=== PATIENT | male | born 1970 | race Two or more races ===

== ENCOUNTER 2018-05-04 01:04 | Inpatient (IN) | payer MEDICAID ==
[~2018-05-04] VITALS: Ht 182.9 cm; Wt 60.3 kg
[2018-05-04] VITALS (72 sets, daily range): BP systolic 70–129; BP diastolic 17–97
--- NOTE | 2018-05-04 01:10 | NUR ---
BIBRA 88 FROM [employer], C/O SOB SINCE YESTERDAY WORSE TODAY, PER RA PT HR 160 BS 46, GAVE GLUCOSE PASTE, FIELD BP 68/40. APPEARS SLIGHTLY ANXIOUS. PT IS AOX4, TACHYCARDIC, HYPOTENSIVE. SOME SOB, BUT RESPIRATIONS EVEN. PAIN IN RIGHT SHOULDER. LARGE OPEN WOUNDS ON BILATERAL LOWER EXTREMITIES. AWAITING MD ORDERS
--- NOTE | 2018-05-04 01:17 | NUR ---
ORDERS CARRIED OUT. IVF INFUSING, ABX STARTED. CONTINUOUS GLUCOSE CHECKS IN PROCESS. LAB ORDERS DRAWN AND SWABS COMPLETED AND SENT TO LAB. PT UNABLE TO PROVIDE URINE AT THIS TIME.
[2018-05-04] MEDS ORDERED: IV NS 0.9% 1,000 ML BAG IV ONE ×2 (01:30→02:30)
--- NOTE | 2018-05-04 01:38 | NUR ---
PT IS ASSIGNED TO ICU RM#: [id number]
[2018-05-04] MEDS ORDERED: DEXTROSE 50%-WATER 50 ML DISP.SYRIN ONE (01:52)
[2018-05-04 01:55] LABS: HEMATOCRIT 34 % (39-51); HEMOGLOBIN 10.9 g/dL (13.5-17.5); MEAN CORPUSCULAR HGB CONC 32 g/dl (31.0-36.0); MEAN CORPUSCULAR VOLUME 70 fL (80-96); RED BLOOD CELL COUNT(AUTO) 4.87 MIL/uL (4.5-6.0)
[2018-05-04] MEDS ORDERED: VANCOMYCIN 1 GM in IV D5W 250 ML IV ONE (02:00)
[2018-05-04] MEDS ORDERED: PIPERACILLIN /TAZOBACTAM 3.375 G in IV D5W 50 ML IV ONE (02:00)
[2018-05-04] MEDS ORDERED: DEXTROSE 50%-WATER 50 ML DISP.SYRIN IVP ONE (02:00)
[2018-05-04 02:03] LABS: CALCIUM, SERUM 7.2 mg/dL (8.5-10.1); CARBON DIOXIDE 20 mmol/L (21-32); CHLORIDE 92 mmol/L (98-107); CREATININE 3.8 mg/dL (0.6-1.3); GLUCOSE 54 mg/dL (74-106); POTASSIUM 3.4 mmol/L (3.5-5.1); SODIUM SERUM 133 mmol/L (136-145); UREA NITROGEN, BLOOD 63 mg/dL (7-18)
[2018-05-04] MEDS ORDERED: PIPERACILLIN /TAZOBACTAM 3.375 G VIAL IV ONE (02:05)
[2018-05-04] MEDS ORDERED: VANCOMYCIN 1 GM VIAL ONE (02:05)
[2018-05-04 02:06] LABS: PLATELET COUNT (AUTO) 10 /CMM (150-450)
--- NOTE | 2018-05-04 02:10 | NUR ---
PT PROVIDED BLANKET FOR COMFORT. CONTINUE TO MONITOR VS
[2018-05-04 02:17] LABS: WHITE BLOOD COUNT (AUTO) 18.8 K/uL (4.3-11.0)
[2018-05-04 02:18] LABS: BILIRUBIN,DIRECT 2.4 mg/dL (0.0-0.2); LYMPHOCYTES % (AUTO) 16.6 % (20.0-44.0); MONOCYTES % (AUTO) 3.2 % (2.0-12.0)
[2018-05-04 02:19] LABS: ALANINE AMINOTRANSFERASE 18 U/L (12-78); ALBUMIN 1.6 g/dL (3.4-5.0); ALKALINE PHOSPHATASE 332 U/L (46-116); ASPARTATE AMINOTRANSFERASE 61 U/L (15-37); B-TYPE NATRIURETIC PEPTIDE 5843 PG/ML (0-125); BASOPHILS % (AUTO) 6.3 % (0.0-2.0); EOSINOPHILS % (AUTO) 1.9 % (0.0-6.0); TOTAL PROTEIN, SERUM 6.1 g/dL (6.4-8.2)
[2018-05-04 02:22] LABS: BAND % (MANUAL) 24 % (0.0-5.0); LYMPHOCYTES % (MANUAL) 2 % (16-48); METAMYELOCYTES % 4 % (0-0); MONOCYTES % (MANUAL) 1 % (0-11.0); NEUTROPHILS % (MANUAL) 67 (42-76); PROMYELOCYTES % 1 % (0-0); REACTIVE LYMPHOCYTES 1 % (0-0)
[2018-05-04 02:25] LABS: BASOPHILS # (AUTO) 1.2 /CMM (0.0-0.2); LYMPHOCYTES # (AUTO) 3.1 /CMM (0.8-4.8); MONOCYTES # (AUTO) 0.6 /CMM (0.1-1.30); NEUTROPHILS # (AUTO) 13.5 /CMM (1.8-8.9)
[2018-05-04] MEDS ORDERED: ACETAMINOPHEN 650 MG/SUPP.RECT RC PRN (03:00)
[2018-05-04] MEDS ORDERED: MORPHINE SULFATE INJ 2 MG/ML DISP.SYRIN IV PRN (03:00)
[2018-05-04] MEDS ORDERED: DEXTROSE 50%-WATER 50 ML DISP.SYRIN IV PRN (03:00)
[2018-05-04] MEDS ORDERED: ONDANSETRON HCL/PF 4 MG/2 ML VIAL IVP PRN (03:00)
[2018-05-04] MEDS ORDERED: NOREPINEPHRINE 8 MG in IV D5W 500 ML IV PRN ×2 (03:00→05:30)
[2018-05-04] MEDS ORDERED: *INSULIN REGULAR(HUMULIN R)HUM 100 UNIT/ML VIAL SQ PRN (03:00)
[2018-05-04] MEDS ORDERED: ACETAMINOPHEN 325 MG TABLET PO PRN (03:00)
[2018-05-04] MEDS ORDERED: CIPROFLOXACIN IV RTU 400 MG in PREMIX 1 EA IV STA (03:04)
--- NOTE | 2018-05-04 03:26 | NUR ---
REPORT GIVEN TO ANNE QUEEN
[2018-05-04] MEDS ORDERED: CIPROFLOXACIN IV RTU 200 ML IV ONE (03:31)
--- NOTE | 2018-05-04 04:20 | NUR ---
ICU/RN-ADMITTED THIS 48 Y/O MALE FROM ER VIA GURNEY ACCOMPANIED BY ER STAFF PER ACLS PROTOCOL. NURSING FOCUS: INFECTION R/T DIAGNOSIS OF SEPSIS. ROUTINE ICU ADMISSION CARE INITIATED. PT. IS AWAKE, ALERT, EXPRESSIVE OF NEEDS. BREATHING SPONTANEOUSLY TO ROOM AIR W/ O2 SUPPORT OF 2 L/NC. SATS.-98%, BP-79/48. WILL CONTINUE TO MONITOR PER PROTOCOL. WILL START PT. ON LEVOPHED NEEDED TO KEEP MAP>60. PT. NOTED TO HAVE HUGE HARISH LE WOUNDS,WILL DO INITIAL TREATMENT PER PROTOCOL AND WILL CONSULT ENVIRONMENTAL COMMUNICATIONS SPECIALIST PER PROTOCOL. REFER TO WOUND PHOTO AND SKIN PROBLEM ASSESSMENT FOR DETAILS. TEMPT. 97/F. WILL KEEP PT. WARM AND COMFORTABLE. DENIES PAIN AT THIS TIME.
--- NOTE | 2018-05-04 04:20 | NUR ---
PT TRANSFERRED TO ICU
[2018-05-04] MEDS: IV NS 0.9% 1,000 ML IV SCH ×3 (04:47→16:03)
[2018-05-04] MEDS ORDERED: NOREPINEPHRINE 4 MG/4 ML AMPUL IV ONE (05:08)
[2018-05-04 05:22] LABS: BASOPHILS # (AUTO) 0.6 /CMM (0.0-0.2); EOSINOPHILS % (AUTO) 5.4 % (0.0-6.0); HEMATOCRIT 29 % (39-51); HEMOGLOBIN 9.4 g/dL (13.5-17.5); LYMPHOCYTES # (AUTO) 3.1 /CMM (0.8-4.8); LYMPHOCYTES % (AUTO) 25.7 % (20.0-44.0); MEAN CORPUSCULAR HGB CONC 32 g/dl (31.0-36.0); MEAN CORPUSCULAR VOLUME 70 fL (80-96); MONOCYTES # (AUTO) 0.6 /CMM (0.1-1.30); MONOCYTES % (AUTO) 4.9 % (2.0-12.0); NEUTROPHILS # (AUTO) 7.2 /CMM (1.8-8.9); NEUTROPHILS % (AUTO) 58.8 % (43.0-81.0); RED BLOOD CELL COUNT(AUTO) 4.19 MIL/uL (4.5-6.0); WHITE BLOOD COUNT (AUTO) 12.2 K/uL (4.3-11.0)
[2018-05-04 05:25] LABS: ALANINE AMINOTRANSFERASE 13 U/L (12-78); ALKALINE PHOSPHATASE 213 U/L (46-116); ASPARTATE AMINOTRANSFERASE 48 U/L (15-37); BILIRUBIN,TOTAL 2.9 mg/dL (0.2-1.0); CALCIUM, SERUM 6.2 mg/dL (8.5-10.1); CARBON DIOXIDE 22 mmol/L (21-32); CHLORIDE 98 mmol/L (98-107); CREATININE 3.3 mg/dL (0.6-1.3); GLUCOSE 116 mg/dL (74-106); PHOSPHORUS 4.3 mg/dL (2.5-4.9); POTASSIUM 3.4 mmol/L (3.5-5.1); SODIUM SERUM 134 mmol/L (136-145); TOTAL PROTEIN, SERUM 4.7 g/dL (6.4-8.2); UREA NITROGEN, BLOOD 59 mg/dL (7-18)
[2018-05-04 05:29] LABS: BASOPHILS % (AUTO) 5.2 % (0.0-2.0); PLATELET COUNT (AUTO) 14 /CMM (150-450)
[2018-05-04 05:31] LABS: ALBUMIN 1.3 g/dL (3.4-5.0)
[2018-05-04 05:33] LABS: CHOLESTEROL 52 mg/dL (<200); HDL CHOLESTEROL < 10 mg/dL (40-60); LDL 10 mg/dL (0-99); THYROID STIMULATING HORMONE 0.796 uIU/mL (0.358-3.74); TRIGLYCERIDES 186 mg/dL (30-150)
--- NOTE | 2018-05-04 05:52 | NUR ---
ICU/RN-RESULT OF ALBUMIN 1.3 AND LACTIC ACID-8.0 IN RELAYED TO ACNP GRECIA W/ PHONE ORDER TO GIVE IL NS IV BOLUS NOW.
[2018-05-04] MEDS ORDERED: PIPERACILLIN /TAZOBACTAM 3.375 G in IV D5W 50 ML IV SCH (06:00)
[2018-05-04] MEDS ORDERED: IV NS 0.9% 1,000 ML IV ONE (06:00)
--- NOTE | 2018-05-04 06:21 | NUR ---
ICU/RN- PT. IS FOR PLATELET TRANSFUSION 1 UNIT, CONSENT SIGNED BY PT. FOR PICC LINE INSERTION W/ CONSENT SIGNED BY PT. AWAITING FOR THE PICC LINE RN.
--- NOTE | 2018-05-04 06:27 | NUR ---
ICU/RN- PT. IS FOR FC INSERTION AT THIS TIME, WILL ASK PT. AGAIN AT A LATER TIME, PT. REFUSING AT THE MOMENT.
[2018-05-04] MEDS ORDERED: MORPHINE SULFATE INJ 4 MG/ML DISP.SYRIN IV PRN (06:31)
[2018-05-04] MEDS ORDERED: FEE PK DOSING 1 MIN EA MC ONE (07:16)
[2018-05-04] MEDS: BLOOD SUGAR DIAGNOSTIC 1 EACH STRIP IN SCH ×4 (07:47→22:07)
[2018-05-04] MEDS: PANTOPRAZOLE 40 MG VIAL IV SCH (09:54)
[2018-05-04] MEDS: NICOTINE PATCH (14MG) 14 MG PATCH.TD24 TD SCH (09:54)
--- NOTE | 2018-05-04 10:17 | NUR ---
NM: LUNG V/Q WAS COMPLETED. TECH:RB.
[2018-05-04 11:45] LABS: BASOPHILS # (AUTO) 0.1 /CMM (0.0-0.2); BASOPHILS % (AUTO) 0.3 % (0.0-2.0); EOSINOPHILS % (AUTO) 3.2 % (0.0-6.0); HEMATOCRIT 31 % (39-51); LYMPHOCYTES # (AUTO) 9.2 /CMM (0.8-4.8); LYMPHOCYTES % (AUTO) 32.2 % (20.0-44.0); MEAN CORPUSCULAR HGB CONC 32 g/dl (31.0-36.0); MEAN CORPUSCULAR VOLUME 70 fL (80-96); MONOCYTES % (AUTO) 3.5 % (2.0-12.0); NEUTROPHILS # (AUTO) 17.3 /CMM (1.8-8.9); NEUTROPHILS % (AUTO) 60.8 % (43.0-81.0); RED BLOOD CELL COUNT(AUTO) 4.48 MIL/uL (4.5-6.0); WHITE BLOOD COUNT (AUTO) 28.4 K/uL (4.3-11.0)
[2018-05-04 11:48] LABS: PLATELET COUNT (AUTO) 12 /CMM (150-450)
[2018-05-04 11:58] LABS: BAND % (MANUAL) 19 % (0.0-5.0); EOSINOPHILS % (MANUAL) 3 % (0-4); LYMPHOCYTES % (MANUAL) 3 % (16-48); MONOCYTES % (MANUAL) 4 % (0-11.0); NEUTROPHILS % (MANUAL) 71 (42-76)
--- NOTE | 2018-05-04 12:00 | NUR ---
pt is resting in the bed, alert, follows commands, ST 165- 180 MD called, on levo at 8mcg,on 2L 02 sat well, lungs partially congested, BL leg edema and wounds, tolerates diet, eats 25% only, no urine output yet, one BM, VQ scan done, v/s stable, no pain, pt turns and repositions by himself.
[2018-05-04] MEDS: PIPERACILLIN /TAZOBACTAM 3.375 G in IV D5W 50 ML IV SCH ×2 (12:09→17:13)
[2018-05-04] MEDS: NOREPINEPHRINE 8 MG in IV D5W 500 ML IV PRN ×2 (12:35→22:07)
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
[2018-05-04] MEDS ORDERED: LORAZEPAM INJ 2 MG/ML VIAL IV PRN (13:00)
--- NOTE | 2018-05-04 15:30 | NUR ---
pt is in Afib with MD LANIE notified
[2018-05-04] MEDS ORDERED: LEVOFLOXACIN 500 MG /D5W 100ML 500 MG in PREMIX 1 EA IV SCH (16:00)
[2018-05-04] MEDS ORDERED: LEVOFLOXACIN 500 MG /D5W 100ML 500 MG in PREMIX 1 EA IV ONE (16:00)
--- NOTE | 2018-05-04 16:15 | NUR ---
pt is resting in the bed, lethargic s/p Ativan ivp, afib with RVR MD notified, orders received, on levo at 13mcg, 2 units platelets transfused, v/s stable, no pain, pt turns and repositions by himself.
[2018-05-04 17:27] LABS: BASOPHILS # (AUTO) 0.1 /CMM (0.0-0.2); BASOPHILS % (AUTO) 0.4 % (0.0-2.0); EOSINOPHILS % (AUTO) 5.2 % (0.0-6.0); HEMATOCRIT 28 % (39-51); HEMOGLOBIN 9.1 g/dL (13.5-17.5); LYMPHOCYTES # (AUTO) 12.2 /CMM (0.8-4.8); LYMPHOCYTES % (AUTO) 35.6 % (20.0-44.0); MEAN CORPUSCULAR HGB CONC 33 g/dl (31.0-36.0); MEAN CORPUSCULAR VOLUME 70 fL (80-96); MONOCYTES % (AUTO) 5.8 % (2.0-12.0); NEUTROPHILS # (AUTO) 18.2 /CMM (1.8-8.9); RED BLOOD CELL COUNT(AUTO) 3.99 MIL/uL (4.5-6.0)
[2018-05-04 17:51] LABS: PLATELET COUNT (AUTO) 24 /CMM (150-450); WHITE BLOOD COUNT (AUTO) 34.2 K/uL (4.3-11.0)
[2018-05-04] MEDS ORDERED: AMIODARONE 150 MG in IV D5W 100 ML IV ONE (18:00)
[2018-05-04] MEDS ORDERED: AMIODARONE 900 MG in IV D5W 482 ML IV PRN (18:00)
[2018-05-04 18:29] LABS: BAND % (MANUAL) 10 % (0.0-5.0); EOSINOPHILS % (MANUAL) 2 % (0-4); LYMPHOCYTES % (MANUAL) 9 % (16-48); MONOCYTES % (MANUAL) 6 % (0-11.0); MYELOCYTES % 1 % (0-0); NEUTROPHILS % (MANUAL) 72 (42-76)
[2018-05-05] VITALS (91 sets, daily range): BP systolic 84–156; BP diastolic 46–98
[2018-05-05] MEDS: PIPERACILLIN /TAZOBACTAM 3.375 G in IV D5W 50 ML IV SCH ×5 (00:55→23:01)
--- NOTE | 2018-05-05 01:00 | NUR ---
DECREASED AMIODARONE TO 0.5MG/MIN PER PROTOCOL FOR NEXT 18 HRS.
[2018-05-05] MEDS: IV NS 0.9% 1,000 ML IV SCH ×5 (01:49→21:15)
[2018-05-05] MEDS: VANCOMYCIN 0.75 GM in IV D5W 250 ML IV SCH (03:27)
[2018-05-05 04:37] LABS: EOSINOPHILS % (AUTO) 0.9 % (0.0-6.0); HEMATOCRIT 27 % (39-51); HEMOGLOBIN 8.5 g/dL (13.5-17.5); LYMPHOCYTES # (AUTO) 2.9 /CMM (0.8-4.8); LYMPHOCYTES % (AUTO) 15.4 % (20.0-44.0); MEAN CORPUSCULAR HGB CONC 32 g/dl (31.0-36.0); MEAN CORPUSCULAR VOLUME 69 fL (80-96); MONOCYTES # (AUTO) 1.3 /CMM (0.1-1.30); NEUTROPHILS # (AUTO) 14.6 /CMM (1.8-8.9); NEUTROPHILS % (AUTO) 76.7 % (43.0-81.0); RED BLOOD CELL COUNT(AUTO) 3.82 MIL/uL (4.5-6.0); WHITE BLOOD COUNT (AUTO) 19.1 K/uL (4.3-11.0)
[2018-05-05 04:43] LABS: PLATELET COUNT (AUTO) 11 /CMM (150-450)
[2018-05-05] MEDS ORDERED: CIPROFLOXACIN IV RTU 400 MG in PREMIX 1 EA IV SCH (05:00)
[2018-05-05 05:10] LABS: BAND % (MANUAL) 11 % (0.0-5.0); LYMPHOCYTES % (MANUAL) 12 % (16-48); NEUTROPHILS % (MANUAL) 73 (42-76)
[2018-05-05 05:11] LABS: MONOCYTES % (MANUAL) 4 % (0-11.0)
[2018-05-05 05:12] LABS: ALANINE AMINOTRANSFERASE 20 U/L (12-78); ALKALINE PHOSPHATASE 152 U/L (46-116); ASPARTATE AMINOTRANSFERASE 58 U/L (15-37); CALCIUM, SERUM 6.9 mg/dL (8.5-10.1); CARBON DIOXIDE 21 mmol/L (21-32); CHLORIDE 100 mmol/L (98-107); CREATININE 3.3 mg/dL (0.6-1.3); GLUCOSE 120 mg/dL (74-106); MAGNESIUM 2.4 mg/dL (1.8-2.4); PHOSPHORUS 3.7 mg/dL (2.5-4.9); POTASSIUM 3.6 mmol/L (3.5-5.1); SODIUM SERUM 135 mmol/L (136-145); TOTAL PROTEIN, SERUM 4.6 g/dL (6.4-8.2); UREA NITROGEN, BLOOD 73 mg/dL (7-18)
[2018-05-05 05:14] LABS: CREATINE KINASE, TOTAL 319 U/L (39-308)
[2018-05-05 05:27] LABS: ALBUMIN 1.3 g/dL (3.4-5.0)
--- NOTE | 2018-05-05 06:30 | NUR ---
NOTIFIED GRECIA YOUNG CRITICAL VALUE OF PLATELETS 11. GIVEN ORDERS FOR 1 UNIT OF PLATELETS AND CBC AN HOUR AFTER. READBACK ORDERS PERFORMED AND PLACED IN COMPUTER.
--- NOTE | 2018-05-05 07:25 | NUR ---
PT REMAINS IN NO ACUTE DISTRESS IN BED. PT DID NOT HAVE ANY SIGNIFICANT CHANGE IN CONDITION DURING SHIFT. ALL NEEDS MET, ALL ORDERS CARRIED OUT. WILL ENDORSE CARE TO AM RN FOR CONTINUITY OF CARE.
[2018-05-05] MEDS: BLOOD SUGAR DIAGNOSTIC 1 EACH STRIP IN SCH ×4 (08:03→21:45)
[2018-05-05] MEDS: NICOTINE PATCH (14MG) 14 MG PATCH.TD24 TD SCH (08:06)
[2018-05-05] MEDS: PANTOPRAZOLE 40 MG VIAL IV SCH (08:06)
[2018-05-05] MEDS: NOREPINEPHRINE 8 MG in IV D5W 500 ML IV PRN (08:06)
[2018-05-05] MEDS: DAKINS HALF STRENGTH (0.25%) 480 ML BOTTLE TOP SCH (08:07)
--- NOTE | 2018-05-05 08:19 | NUR ---
WOUND CARE CONSULT WOUND CARE RECEIVED CONSULT FOR BILATERAL LOWER EXTREMITY WOUNDS. WOUND CARE WILL DEFER CONSULT AND ALL TREATMENT PLANS TO DPM DR WOLFF WHO IS CURRENTLY FOLLOWING THIS PATIENT. PATIENT WITH LATRICIA AT 17, ALL PRESSURE ULCER PREVENTION MEASURES ARE CURRENTLY IN PLACE. WILL SEE PRN.
--- NOTE | 2018-05-05 11:17 | NUR ---
RN NOTE 0720: Received patient sleepy. A/Ox3. On 2LPM of O2 via NC, no respiratory distress noted. Noted with jerking movements at times. With GERRI PICC intact, on Levo @ 8mcg, will titrate as ordered. Able to use urinals, per previous nurse, he had 850mL urine. Noted with bleeding on the mouth, patient trying to gurgle water. Noted platelet 11, awaiting platelet 1 unit for transfusion. With BLE wound dressings CDI. S/E by Dr. Rodriguez, with order to DC Amio drip and continue Levo and NS 250. No S/S hypo/hyperglycemia noted at this time. 0900: S/E by Dr. Kay, no new order at this time. 1015: S/E by Dr. Sommer, no intervention for now 2/2 on pressors. 1115: Platelet transfusion ongoing, tolerated at this time. Will continue to monitor.
--- NOTE | 2018-05-05 13:00 | NUR ---
RN NOTE Still noted with Afib 140's. Made Dr. Rodriguez aware, with order to give Dig x 3 doses.
[2018-05-05] MEDS: DIGOXIN INJ 0.5 MG/2 ML AMPUL IV SCH ×3 (13:11→23:01)
[2018-05-05 13:52] LABS: BASOPHILS # (AUTO) 0.1 /CMM (0.0-0.2); BASOPHILS % (AUTO) 0.4 % (0.0-2.0); EOSINOPHILS % (AUTO) 0.2 % (0.0-6.0); HEMATOCRIT 24 % (39-51); HEMOGLOBIN 7.7 g/dL (13.5-17.5); LYMPHOCYTES # (AUTO) 6.8 /CMM (0.8-4.8); LYMPHOCYTES % (AUTO) 50.2 % (20.0-44.0); MEAN CORPUSCULAR HGB CONC 33 g/dl (31.0-36.0); MEAN CORPUSCULAR VOLUME 69 fL (80-96); MONOCYTES # (AUTO) 0.5 /CMM (0.1-1.30); MONOCYTES % (AUTO) 3.8 % (2.0-12.0); NEUTROPHILS # (AUTO) 6.1 /CMM (1.8-8.9); NEUTROPHILS % (AUTO) 45.4 % (43.0-81.0); RED BLOOD CELL COUNT(AUTO) 3.43 MIL/uL (4.5-6.0); WHITE BLOOD COUNT (AUTO) 13.5 K/uL (4.3-11.0)
[2018-05-05 14:05] LABS: PLATELET COUNT (AUTO) 18 /CMM (150-450)
[2018-05-05 14:15] LABS: APPEARANCE,URINE SL CLOUDY (CLEAR); BILIRUBIN,URINE 1+ (NEGATIVE); BLOOD, URINE 2+ Ery/uL (NEGATIVE); COLOR,URINE YELLOW (YELLOW); KETONES,URINE NEGATIVE (NEGATIVE); LEUKOCYTE ESTERASE ,URINE 1+ (NEGATIVE); NITRITE, URINE NEGATIVE (NEGATIVE); PH,URINE 5.5 (5.0-8.0); PROTEIN,URINE TRACE mg/dl (NEGATIVE); UGLUCOSE NEGATIVE (NEGATIVE)
--- NOTE | 2018-05-05 14:17 | NUR ---
RN NOTE Repeat Plt is 18, made MD aware, no new order at this time.
[2018-05-05 14:27] LABS: CREATININE, URINE 39.3 MG/DL (30.0-125.0); URINE TOTAL PROTEIN 83.8 mg/dL (0-11.9)
[2018-05-05 14:28] LABS: BACTERIA,URINE Many /HPF (None Seen); SQUAMOUS EPITHELIAL CELL,UR Rare /HPF (None Seen)
[2018-05-05 14:29] LABS: URINE AMORPHOUS URATE Moderate /HPF (None Seen)
[2018-05-05 14:36] LABS: BAND % (MANUAL) 1 % (0.0-5.0); LYMPHOCYTES % (MANUAL) 14 % (16-48); NEUTROPHILS % (MANUAL) 78 (42-76)
[2018-05-05 14:37] LABS: MONOCYTES % (MANUAL) 7 % (0-11.0)
[2018-05-05 14:51] LABS: EOSINOPHIL,URINE None Seen
[2018-05-05] MEDS: LEVOFLOXACIN 250 MG /D5W 50 ML 250 MG in PREMIX 1 EA IV SCH (16:02)
[2018-05-05] MEDS: LACTOBACILLUS RHAMNOSUS GG 1 EACH CAP.SPRINK PO SCH (16:02)
--- NOTE | 2018-05-05 19:32 | NUR ---
CARDROOM HAND NOTES RECEIVED PT ON BED. A/O X 3 , SLEEPY. ON NASAL CANNULA 2LPM SATURATING 95%, NO RESPIRATORY DISTRESS NOTED. PT ON TELE MONITOR AFIB UNCONTROLLED HR OF 133. IV ACCESS GERRI PICC LINE PATENT AND INTACT WITH NS RUNNING @ 250CC/HR RUNNING WELL. HEAD OF BED ELEVATED. SIDE RAILS UP. CALL LIGHT WITHIN REACH, BED ALARM ON. WILL CONTINUE TO MONITOR PT CLOSELY.
[2018-05-05] MEDS: HYDROMORPHONE 1 MG/1 ML DISP.SYRIN IV PRN (20:23)
--- NOTE | 2018-05-05 22:32 | NUR ---
FISH FLIPPER NOTES PT AGITATED AND ANXIOUS. PT WANTS ATIVAN TO CALM HIM DOWN. BLOOD PRESSURE STABLE. PT EASILY AROUSABLE.
--- NOTE | 2018-05-05 22:39 | NUR ---
MILLING/POLISHING OPERATOR NOTES ENVIRONMENTAL SERVICES MANAGER ORDERED 1MG ATIVAN ONE TIME DOSE. WILL CONTINUE TO MONITOR PT CLOSELY.
[2018-05-05] MEDS ORDERED: LORAZEPAM INJ 2 MG/ML VIAL IV ONE (23:00)
[2018-05-05] MEDS ORDERED: IV NS 0.9% 1,000 ML IV PRN (23:30)
--- NOTE | 2018-05-05 23:41 | NUR ---
HOT STICK MAN NOTES CALLED YOUTH LIAISON OFFICER FOR HEART RATE OF AFIB 145-160. WAITING FOR ORDERS. WILL CONTINUE TO MONITOR PT CLOSELY.
[2018-05-06] VITALS (54 sets, daily range): BP systolic 100–176; BP diastolic 44–147
[2018-05-06] MEDS ORDERED: IV NS 0.9% 1,000 ML IV PRN
[2018-05-06] MEDS ORDERED: DILTIAZEM HCL 50 MG IV IV ONE
[2018-05-06] MEDS ORDERED: IV NS 0.9% 1,000 ML IV ONE (00:30)
--- NOTE | 2018-05-06 00:33 | NUR ---
BOX SPRING UPHOLSTERER NOTES REHABILITATION TECH ORDERED CARDIZEM 5MG IV PUSH X1 AND 1L NS BOLUS. WILL CONTINUE TO MONITOR PT CLOSELY.
[2018-05-06] MEDS: LORAZEPAM INJ 2 MG/ML VIAL IV PRN ×7 (00:56→22:31)
--- NOTE | 2018-05-06 01:07 | NUR ---
SLOT FLOORMAN NOTES CALLED SAND SYSTEM OPERATOR FOR ORDERS REGARDING RESPI RATE OF 30-40BPM. HR OF 160. PER SAND SYSTEM OPERATOR PT IS HAVING WITHDRAWAL. ORDERED ATIVAN 2MG. WILL CONTINUE TO MONITOR PT CLOSELY.
[2018-05-06] MEDS: IV NS 0.9% 1,000 ML IV SCH (01:20)
[2018-05-06] MEDS: VANCOMYCIN 0.75 GM in IV D5W 250 ML IV SCH (01:58)
--- NOTE | 2018-05-06 02:56 | NUR ---
MIDDLE SCHOOL ENGLISH TEACHER NOTES PER WEED CONTROLLER ROUND THE CLOCK ATIVAN 2MG FOR NOW. FOR WITHDRAWAL SYMPTOMS
--- NOTE | 2018-05-06 04:12 | NUR ---
FLOOR INSPECTOR NOTES PAGED POSTDOCTORAL SCHOLAR FOR CXR RESULTS. ORDERED TO DECREASE IVF NS TO 100CC/HR. AND REPEAT LACTIC ACID IN AM LABS. WILL CONTINUE TO MONITOR PT CLOSELY.
[2018-05-06] MEDS: IV NS 0.9% 1,000 ML IV PRN ×2 (04:40→15:08)
[2018-05-06 05:13] LABS: BASOPHILS # (AUTO) 0.1 /CMM (0.0-0.2); BASOPHILS % (AUTO) 0.6 % (0.0-2.0); EOSINOPHILS % (AUTO) 0.3 % (0.0-6.0); HEMATOCRIT 25 % (39-51); HEMOGLOBIN 8.1 g/dL (13.5-17.5); LYMPHOCYTES # (AUTO) 3.2 /CMM (0.8-4.8); LYMPHOCYTES % (AUTO) 17.9 % (20.0-44.0); MEAN CORPUSCULAR HGB CONC 32 g/dl (31.0-36.0); MEAN CORPUSCULAR VOLUME 69 fL (80-96); MONOCYTES # (AUTO) 2.5 /CMM (0.1-1.30); MONOCYTES % (AUTO) 14.3 % (2.0-12.0); NEUTROPHILS # (AUTO) 11.9 /CMM (1.8-8.9); NEUTROPHILS % (AUTO) 66.9 % (43.0-81.0); RED BLOOD CELL COUNT(AUTO) 3.61 MIL/uL (4.5-6.0); WHITE BLOOD COUNT (AUTO) 17.8 K/uL (4.3-11.0)
[2018-05-06 05:29] LABS: CALCIUM, SERUM 6.9 mg/dL (8.5-10.1); CREATININE 2.3 mg/dL (0.6-1.3); MAGNESIUM 2.4 mg/dL (1.8-2.4); PHOSPHORUS 4.2 mg/dL (2.5-4.9); POTASSIUM 3.5 mmol/L (3.5-5.1)
[2018-05-06 05:32] LABS: PLATELET COUNT (AUTO) 10 /CMM (150-450)
--- NOTE | 2018-05-06 05:47 | NUR ---
SHEAR HELPER NOTES PLATELET IS 10. PAGED METROLOGY ENGINEER. ORDERED 2 UNITS OF PLATELET. NO ACTIVE BLEEDING NOTED. V/S STABLE. WILL CONTINUE TO MONITOR PT CLOSELY.
[2018-05-06] MEDS: PIPERACILLIN /TAZOBACTAM 3.375 G in IV D5W 50 ML IV SCH ×2 (05:51→12:27)
[2018-05-06 06:23] LABS: BAND % (MANUAL) 1 % (0.0-5.0); EOSINOPHILS % (MANUAL) 1 % (0-4); LYMPHOCYTES % (MANUAL) 4 % (16-48); NEUTROPHILS % (MANUAL) 94 (42-76)
--- NOTE | 2018-05-06 07:10 | NUR ---
TRAFFIC CIRCUIT ENGINEER NOTES PT STABLE THROUGHOUT THE SHIFT. PT CONVERTED TO CONTROLLED AFIB. PT ON NASAL CANNULA 5LPM SATURATING WELL. NO RESPIRATORY DISTRESS. CONDOM CATH INSERTED FOR OUTPUT MONITORING. IV FLUID DECREASE DUE TO INCREASE PULMONARY EDEMA. PUT ORDERS FOR 2 UNITS OF PLATELET FOR PLATELET OF 10. NO ACTIVE BLEEDING NOTED THROUGHOUT THE SHIFT. WILL ENDORSE TO THE AM NURSE FOR CONTINUITY OF CARE.
--- NOTE | 2018-05-06 07:30 | NUR ---
RN NOTES RECEIVED PATIENT ON BED WITH BREATHING NORMAL, EVEN AND UNLABORED. NO SOB NOTED. NO ACUTE DISTRESS NOTED. TELE MONITOR REVEALS SR, HR=98. AFEBRILE. GERRI PICC LINE IS PATENT AND INTACT, RUNNING IVF PER ORDER. KEPT CLEAN, DRY AND COMFORTABLE. ALL NEEDS ATTENDED. SAFETY MEASURE OBSERVED. CALL LIGHT WITH IN REACH. WILL CONT TO MONITOR.
[2018-05-06] MEDS: BLOOD SUGAR DIAGNOSTIC 1 EACH STRIP IN SCH ×4 (08:03→22:40)
[2018-05-06] MEDS: PANTOPRAZOLE 40 MG VIAL IV SCH (08:32)
[2018-05-06] MEDS: DAKINS HALF STRENGTH (0.25%) 480 ML BOTTLE TOP SCH (08:33)
[2018-05-06] MEDS: LACTOBACILLUS RHAMNOSUS GG 1 EACH CAP.SPRINK PO SCH ×2 (08:33→16:11)
[2018-05-06] MEDS: NICOTINE PATCH (14MG) 14 MG PATCH.TD24 TD SCH (08:33)
--- NOTE | 2018-05-06 09:30 | NUR ---
RN NOTES PATIENT ENDORSED TO PASHA RODRÍGUEZ FOR CONTINUITY OF CARE.
--- NOTE | 2018-05-06 09:45 | NUR ---
RN NOTES RECEIVED PT IN BED RESTLESS, PT TO BE GIVEN ATIVAN Q2H FOR WITHDRAWAL SYMPTOMS. PT WITH INCREASED RESPIRATION WITH SPO2 95% . PT RESPONSIVE TO PAINFUL STIMULI CONFUSED. GERRI PICC LINE AND LAC 2G PATENT AND INTACT NO REDNESS OR INFILTRATION NOTED. KEPT CLEAN DRY AND COMFORTABLE CALL LIGHT WITHIN EASY REACH WILL CONTINUE TO MONITOR
[2018-05-06 14:09] LABS: PTH, INTACT 166 pg/mL (15-65)
--- NOTE | 2018-05-06 14:45 | NUR ---
RN NOTES PT WITH EPISODES OF TACHYPNEA WITH LOW 02 SAT OF 78% PT PLACED ON NON REBREATHER MASK ORDERED AND ABG DRAWN RESULTS REPORTED TO DR. CARLOS WITH ORDERS TO CONTINUE TO MONITOR ON NON REBREATHER MASK AND ATTEMPT TO WEAN OFF NO INTUBATION AT THIS TIME, ABG TO BE DRAWN IN AM AND CONTINUE TO MONITOR PER DR. CARLOS ATIVAN Q2H PRN ORDERED FOR WITHDRAWAL SYMPTOMS
[2018-05-06 14:57] LABS: ABG BASE EXCESS -6.9 mmol/L; ABG OXYGEN SATURATION 84.1 % (92.0-98.5); ABG PCO2 25.2 mmHg (35.0-45.0); ABG PH 7.431 (7.350-7.450); ABG PO2 53.2 mmHg (75.0-100.0); AaDO2 289.3 mmHg; COHb 1.6 % (0.5-1.5); O2Hb 81.9 % (94.0-97.0); SITE, ABG Right Radial; VENT MODE, BG S/M @ 8 lpm
[2018-05-06] MEDS: LEVOFLOXACIN 250 MG /D5W 50 ML 250 MG in PREMIX 1 EA IV SCH (16:36)
[2018-05-06] MEDS ORDERED: MEROPENEM 500 MG in IV NS 0.9% 50 ML IV ONE (18:00)
--- NOTE | 2018-05-06 19:15 | NUR ---
ICU/SLAG MOTOR OPERATOR RECEIVED REPORT FROM DAY NURSE, PT'S HEART RATE FELL TO 30'S AND SATURATION TO 70'S. CHANGED OFF LEADS AND ASSESS THE PULSE OX ON FINGER. THEN NOTIFIED CHARGE NURSE WHO THEN PLACED ORDER FOR ABG
--- NOTE | 2018-05-06 19:25 | NUR ---
RN NOTES PT IN BED RESTLESS, PT TO BE GIVEN ATIVAN Q2H FOR WITHDRAWAL SYMPTOMS. PT WITH INCREASED RESPIRATION WITH SPO2 94% . PT RESPONSIVE TO PAINFUL STIMULI CONFUSED. GERRI PICC LINE AND LAC 2G PATENT AND INTACT NO REDNESS OR INFILTRATION NOTED. KEPT CLEAN DRY AND COMFORTABLE CALL LIGHT WITHIN EASY REACH WILL CONTINUE TO MONITOR ENDORSED TO NEXT SHIFT FOR CONTINUITY OF CARE
--- NOTE | 2018-05-06 19:30 | NUR ---
ICU/YOUNG ADULT LIBRARIAN ABG WAS RESULTED, NOTIFIED CHARGE NURSE.
[2018-05-06 19:33] LABS: ABG BASE EXCESS -5.6 mmol/L; ABG OXYGEN SATURATION 89.9 % (92.0-98.5); ABG PCO2 30.5 mmHg (35.0-45.0); ABG PH 7.399 (7.350-7.450); ABG PO2 66.3 mmHg (75.0-100.0); AaDO2 616.2 mmHg; COHb 1.2 % (0.5-1.5); MetHb 0.7 % (0.0-1.5); O2Hb 88.2 % (94.0-97.0); VENT MODE, BG NRB
--- NOTE | 2018-05-06 19:45 | NUR ---
ICU/GED INSTRUCTOR BLOOD SUGAR CHECK WAS DONE WHICH WAS 91, NO COVERAGE FOR THIS. BS IS NOT A CRITICAL VALUES. WILL CONTINUE TO MONITOR THIS PT.
--- NOTE | 2018-05-06 20:00 | NUR ---
ICU/TOP DYEING MACHINE TENDER SENT ABG RESULTS TO JUAN LEE FOR ANY ORDERS POST ABG 20 MINUTES AGO. JUAN LEE WILL CALL BACK NEEDS TO LOOK INTO PT AND PT'S HISTORY. AWAIT ANY ORDERS.
--- NOTE | 2018-05-06 20:06 | NUR ---
PT ON NRB TACHYNPNEIC O2 SAT 93%, STAT ABG DONE AT 1925. NOTIFIED RN WITH THE RESULT.
--- NOTE | 2018-05-06 20:30 | NUR ---
ICU/ARCHITECTURE CONSULTANT CALL BACK FROM JUAN LEE, WAS TO PLACE PT ON BIPAP THEN ABG IN 2 HOURS. CALLED BENI BACK FOR CLARIFICATION OF ORDERS.
--- NOTE | 2018-05-06 20:45 | NUR ---
ICU/STORAGE ARCHITECT JUAN LEE CALLED BACK WITH CLARIFICATION OF ORDERS FOR BIPAP.
--- NOTE | 2018-05-06 20:57 | NUR ---
PT PLACED ON BIPAP PER GRECIA VOCATIONAL COORDINATOR. 18/, 30, 100%. ABG IN 2HRS. RN NOTIFIED. WILL CONTINUE TO MONITOR.
--- NOTE | 2018-05-06 21:10 | NUR ---
ICU/RAILROAD CAR LETTERER PT WAS PLACED ON THE BIPAP WITH 18/5, 100%, RATE OF 30. ABG POST 2 HRS IS 23OO. WILL CONTINUE TO MONITOR THIS PT CLOSELY FOR CRITICAL CHANGES WHICH MAY REQUIRE STAT INTUBATION DUE.
--- NOTE | 2018-05-06 21:10 | NUR ---
ICU/STORE SALES MANAGER PT WAS PLACED IN RESTRAINTS TO PREVENT PT FROM REMOVING THE BIPAP. PT HAD BEEN SEEN REMOVING AND GRABBING FOR BIPAP. OBTAINED AN ORDER FOR RESTRAINS. WILL CONTINUE TO CLOSELY MONITOR THIS PT FOR ANY CRITICAL CHANGES WHICH REQUIRE IMMEDIATE CHANGE IN CARE.
[2018-05-06] MEDS: MEROPENEM 500 MG in IV NS 0.9% 100 ML IV SCH (21:59)
[2018-05-06] MEDS ORDERED: VANCOMYCIN 1 GM in IV D5W 250 ML IV SCH (22:00)
--- NOTE | 2018-05-06 22:20 | NUR ---
ICU/QUALITY ASSURANCE PROJECT MANAGER PT'S BLOOD SUGAR IS 83, THERE IS NO COVERAGE FOR THIS. WILL CONTINUE TO MONITOR THIS PER MD ORDERS. PT WAS TURNED AND REPOSITIONED FOR COMFORT AND CARE.
--- NOTE | 2018-05-06 22:42 | NUR ---
ICU/LEAD PROGRAMMER ANALYST PT APPEARS TO BE RESTLESS AND AGITATED WITH RESPIRATORY RATE OF 50'S, CHARGE NURSE NOTIFIED ABOUT THIS. PT WAS GIVEN ATIVAN 2MG IVP. WILL CONTINUE TO MONITOR THIS PT AND HIS AGGRESSIVE BEHAVIOR.
[2018-05-06 23:10] LABS: ABG BASE EXCESS -5.7 mmol/L; ABG OXYGEN SATURATION 97.8 % (92.0-98.5); ABG PCO2 27.1 mmHg (35.0-45.0); ABG PH 7.435 (7.350-7.450); ABG PO2 140.1 mmHg (75.0-100.0); AaDO2 545.8 mmHg; COHb 1.2 % (0.5-1.5); MetHb 1.2 % (0.0-1.5); O2Hb 95.5 % (94.0-97.0); SITE, ABG Right Radial
--- NOTE | 2018-05-06 23:15 | NUR ---
POST ABG ON BIPAP DONE NOTIFIED RN WITH THE RESULT. FIO2 TITRATED.
--- NOTE | 2018-05-06 23:45 | NUR ---
ICU/PAPER PRODUCTS SUPERVISOR 2 HRS POST BIPAP ABG DONE WITH RESULTS SENT EARLY MORNING BABYSITTER GRECIA, WHO SAID KEEP THIS THE SAME AND THEN DO ABG IN THE AM.
[2018-05-07] VITALS (81 sets, daily range): BP systolic 123–171; BP diastolic 39–101
[2018-05-07] MEDS: IV NS 0.9% 1,000 ML IV PRN (00:19)
[2018-05-07] MEDS: LORAZEPAM INJ 2 MG/ML VIAL IV PRN ×3 (02:53→17:49)
--- NOTE | 2018-05-07 04:05 | NUR ---
ICU/PLATER HELPER AM LABS WITH CHEST XRAY DONE, AWAIT FOR ANY ABNORMAL RESULTS.
[2018-05-07 04:44] LABS: BASOPHILS # (AUTO) 0.1 /CMM (0.0-0.2); BASOPHILS % (AUTO) 0.4 % (0.0-2.0); CALCIUM, SERUM 6.1 mg/dL (8.5-10.1); CREATININE 2.1 mg/dL (0.6-1.3); EOSINOPHILS % (AUTO) 0.1 % (0.0-6.0); HEMATOCRIT 21 % (39-51); LYMPHOCYTES # (AUTO) 5.8 /CMM (0.8-4.8); LYMPHOCYTES % (AUTO) 28.6 % (20.0-44.0); MAGNESIUM 2.6 mg/dL (1.8-2.4); MEAN CORPUSCULAR HGB CONC 33 g/dl (31.0-36.0); MEAN CORPUSCULAR VOLUME 68 fL (80-96); MONOCYTES # (AUTO) 1.6 /CMM (0.1-1.30); NEUTROPHILS # (AUTO) 12.7 /CMM (1.8-8.9); NEUTROPHILS % (AUTO) 62.9 % (43.0-81.0); PHOSPHORUS 5.6 mg/dL (2.5-4.9); RED BLOOD CELL COUNT(AUTO) 3.05 MIL/uL (4.5-6.0); WHITE BLOOD COUNT (AUTO) 20.1 K/uL (4.3-11.0)
[2018-05-07 04:56] LABS: HEMOGLOBIN 6.8 g/dL (13.5-17.5); PLATELET COUNT (AUTO) 24 /CMM (150-450)
[2018-05-07 05:21] LABS: BAND % (MANUAL) 5 % (0.0-5.0); EOSINOPHILS % (MANUAL) 1 % (0-4); LYMPHOCYTES % (MANUAL) 25 % (16-48); MONOCYTES % (MANUAL) 5 % (0-11.0); NEUTROPHILS % (MANUAL) 64 (42-76)
--- NOTE | 2018-05-07 06:20 | NUR ---
ICU/IT SUPPORT CONSULTANT CALLED JUAN FOX ABOUT LOW POTASSIUM AND H&H, ORDERS RECEIVED FOR 1 UNIT PRBC'S, AND 40MEQ OF POTASSIUM. CHARGE NURSE MADE AWARE OF THESE ORDERS AND CARRIED OUT.
[2018-05-07] MEDS: POTASSIUM CL. PREMIX PERIPHER. 50 ML IV SCH ×4 (06:33→09:56)
--- NOTE | 2018-05-07 06:45 | NUR ---
ICU/BANDER PT WEIGHT DONE TWICE WITH BED / [facility] WEIGHT IS STILL 175LBS.
--- NOTE | 2018-05-07 07:30 | NUR ---
RN NOTES RECEIVED PT IN BED RESTLESS, PT TO BE GIVEN ATIVAN Q2H NEEDED FOR WITHDRAWAL SYMPTOMS. PT WITH INCREASED RESPIRATION WITH SPO2 95% ON BIPAP PER ORDERS NO INTUBATION AT THIS TIME . PT RESPONSIVE TO PAINFUL STIMULI CONFUSED. GERRI PICC LINE AND LAC 2G PATENT AND INTACT NO REDNESS OR INFILTRATION NOTED.CONDOM CATHETER IN PLACE AND PT WITH OUTPUT TO BE MONITORED. KEPT CLEAN DRY AND COMFORTABLE CALL LIGHT WITHIN EASY REACH WILL CONTINUE TO MONITOR
[2018-05-07] MEDS: BLOOD SUGAR DIAGNOSTIC 1 EACH STRIP IN SCH ×4 (07:42→21:06)
[2018-05-07 07:45] LABS: CALCIUM, SERUM 6.9 mg/dL (8.5-10.1); CREATININE 1.7 mg/dL (0.6-1.3); POTASSIUM 3.3 mmol/L (3.5-5.1)
[2018-05-07] MEDS: INSULIN REGULAR, HUMAN 100 UNIT/ML 3 ML VIAL SQ PRN ×2 (07:47→17:47)
--- NOTE | 2018-05-07 07:56 | NUR ---
RT PATIENT REC'D ON BIPAP WITH NOTED SETTINGS. PATIENT IS CURRENTLY NON RESPONSIVE TO VERBAL COMMANDS AND TACHYPNEIC. I HAVE ALREADY SUGGESTED TO CHARGE NURSE AND MD THAT PATIENT SHOULD BE INTUBATED FOR AIRWAY PROTECTION. NO CHANGES AT THIS TIME. PRICILLA CARLOS WOULD LIKE TO HOLD OFF ON INTUBATION AT THIS TIME. NASAL PROTECTION DONE WITH MEPILEX. ALARMS CHECKED. AMBU BAG AT HOB Addendum: 05/07/18 at 1154 by CARMEN SANDOVAL RT Amended: Links added.
[2018-05-07] MEDS: LACTOBACILLUS RHAMNOSUS GG 1 EACH CAP.SPRINK PO SCH ×2 (08:35→16:31)
[2018-05-07 08:36] LABS: ABG BASE EXCESS -5.8 mmol/L; ABG OXYGEN SATURATION 93.2 % (92.0-98.5); ABG PCO2 33.6 mmHg (35.0-45.0); ABG PH 7.368 (7.350-7.450); ABG PO2 78.4 mmHg (75.0-100.0); COHb 1.6 % (0.5-1.5); MetHb 0.7 % (0.0-1.5); O2Hb 91.1 % (94.0-97.0); SITE, ABG Right Radial; VENT MODE, BG BIPAP 18/5 R30 100%
[2018-05-07] MEDS: NICOTINE PATCH (14MG) 14 MG PATCH.TD24 TD SCH (08:52)
[2018-05-07] MEDS: MEROPENEM 500 MG in IV NS 0.9% 100 ML IV SCH ×2 (08:52→20:19)
[2018-05-07] MEDS: PANTOPRAZOLE 40 MG VIAL IV SCH (08:52)
[2018-05-07] MEDS: DAKINS HALF STRENGTH (0.25%) 480 ML BOTTLE TOP SCH (08:53)
--- NOTE | 2018-05-07 09:00 | NUR ---
RN NOTES 0815 [address]BC ORDERS WITH DR. GOODMAN, PT TO BE GIVEN 2 UNITS. PT SEEN AND EXAMINED BY DR. GOODMAN AWARE OF PLT LEVEL [address] CARLOS TO CLARIFY NEED FOR INTUBATION 0827 RECEIVED CALL BACK PER DR. CARLOS AWAIT ABG RESULTS 0845 RELAYED ABG RESULTS TO DR. CARLOS PER DR. CARLOS NO INTUBATION AT THIS TIME
[2018-05-07] MEDS ORDERED: IV 1/2NS 1000 ML 1,000 ML IV PRN (13:00)
[2018-05-07 15:07] LABS: HAPTOGLOBIN 137 mg/dL (34-200)
[2018-05-07] MEDS: LEVOFLOXACIN 250 MG /D5W 50 ML 250 MG in PREMIX 1 EA IV SCH (16:31)
--- NOTE | 2018-05-07 19:20 | NUR ---
RN NOTES PT IN BED RESTLESS, PT TO BE GIVEN ATIVAN Q2H NEEDED FOR WITHDRAWAL SYMPTOMS LAST ADMINISTERED 1748. PT WITH INCREASED RESPIRATION WITH SPO2 95-98 % ON BIPAP PER ORDERS NO INTUBATION AT THIS TIME HOSPITALIST AND PROGRAM DIRECTOR/AIR PERSONALITY AWARE, ASSESSED PT AND REVIEWED PLAN OF CARE . PT RESPONSIVE TO PAINFUL STIMULI CONFUSED. GERRI PICC LINE AND LAC 2G PATENT AND INTACT NO REDNESS OR INFILTRATION NOTED.CONDOM CATHETER IN PLACE AND PT WITH OUTPUT TO BE MONITORED. KEPT CLEAN DRY AND COMFORTABLE CALL LIGHT WITHIN EASY REACH, ENDORSED TO NEXT SHIFT FOR CONTINUITY OF CARE
--- NOTE | 2018-05-07 19:45 | NUR ---
ICU/CLINICAL NURSE SPECIALIST RECEIVED REPORT FROM DAY NURSE. SEE FLOWSHEET FOR ASSESSMENT, WOUND ISSUES THAT ARE ADDRESSED HERE WELL. PT WAS TURNED AND REPOSITIONED FOR COMFORT AND CARE.
--- NOTE | 2018-05-07 20:03 | NUR ---
PT REMAINS ON BIPAP ON NOTED SETTINGS. PT IS RESTLESS, TACHYPNEIC. PT DOESN'T FOLLOW COMMANDS. BIPAP ALARMS SET AND AUDIBLE. MEPELIX IN PLACE AROUND THE BRIDGE OF THE NOSE. AMBU BAG AT BEDSIDE. WILL CONTINUE TO MONITOR. Addendum: 05/07/18 at 2005 by RENAY ABDUL RT Amended: Links added.
--- NOTE | 2018-05-07 22:00 | NUR ---
ICU/SUPERVISOR DUMPING PT'S BLOOD SUGAR WAS 105, NO COVERAGE FOR THIS AT THIS TIME.
--- NOTE | 2018-05-07 23:30 | NUR ---
ICU/DERMATOLOGY NURSE PROVIDED CARE TO PT AT THIS TIME, DID TUESDAY WOUND PHOTO DOCUMENTATION, WHICH WAS PLACED IN CHART.
[2018-05-08] VITALS (83 sets, daily range): BP systolic 84–170; BP diastolic 38–95
--- NOTE | 2018-05-08 04:30 | NUR ---
ICU/TOOLROOM CHECKER AM LABS WITH CHEST XRAY DONE, AWAIT FOR ANY ABNORMAL RESULTS.
[2018-05-08 04:40] LABS: BASOPHILS % (AUTO) 0.2 % (0.0-2.0); EOSINOPHILS % (AUTO) 0.1 % (0.0-6.0); HEMATOCRIT 28 % (39-51); HEMOGLOBIN 9.2 g/dL (13.5-17.5); LYMPHOCYTES # (AUTO) 4.5 /CMM (0.8-4.8); LYMPHOCYTES % (AUTO) 24.1 % (20.0-44.0); MEAN CORPUSCULAR HGB CONC 33 g/dl (31.0-36.0); MEAN CORPUSCULAR VOLUME 73 fL (80-96); MONOCYTES # (AUTO) 0.5 /CMM (0.1-1.30); MONOCYTES % (AUTO) 2.7 % (2.0-12.0); NEUTROPHILS # (AUTO) 13.6 /CMM (1.8-8.9); NEUTROPHILS % (AUTO) 72.9 % (43.0-81.0); RED BLOOD CELL COUNT(AUTO) 3.83 MIL/uL (4.5-6.0); WHITE BLOOD COUNT (AUTO) 18.7 K/uL (4.3-11.0)
[2018-05-08 04:47] LABS: PLATELET COUNT (AUTO) 20 /CMM (150-450)
--- NOTE | 2018-05-08 05:00 | NUR ---
ICU/CLEANER INDUSTRIAL PT APPEARS TO BE RESTLESS AND AGITATED POST AM CARE WITH RESPIRATORY RATE OF 50'S, CHARGE NURSE NOTIFIED ABOUT THIS. PT WAS GIVEN ATIVAN 2MG IVP. WILL CONTINUE TO MONITOR THIS PT AND HIS AGGRESSIVE BEHAVIOR.
[2018-05-08 05:02] LABS: CALCIUM, SERUM 7.8 mg/dL (8.5-10.1); CREATININE 1.5 mg/dL (0.6-1.3); MAGNESIUM 2.9 mg/dL (1.8-2.4); PHOSPHORUS 5.2 mg/dL (2.5-4.9); POTASSIUM 3.4 mmol/L (3.5-5.1)
[2018-05-08] MEDS: LORAZEPAM INJ 2 MG/ML VIAL IV PRN ×2 (05:09→08:24)
[2018-05-08 05:29] LABS: LYMPHOCYTES % (MANUAL) 5 % (16-48); MONOCYTES % (MANUAL) 4 % (0-11.0); NEUTROPHILS % (MANUAL) 91 (42-76)
[2018-05-08 07:20] LABS: ABG BASE EXCESS -3.4 mmol/L; ABG OXYGEN SATURATION 92.6 % (92.0-98.5); ABG PCO2 35.5 mmHg (35.0-45.0); ABG PH 7.391 (7.350-7.450); ABG PO2 71.4 mmHg (75.0-100.0); AaDO2 606.1 mmHg; COHb 0.3 % (0.5-1.5); MetHb 0.7 % (0.0-1.5); O2Hb 91.7 % (94.0-97.0); SITE, ABG Right Radial; VENT MODE, BG BIPAP 18/5
[2018-05-08] MEDS: BLOOD SUGAR DIAGNOSTIC 1 EACH STRIP IN SCH ×4 (07:36→22:48)
[2018-05-08] MEDS: DAKINS HALF STRENGTH (0.25%) 480 ML BOTTLE TOP SCH (07:38)
[2018-05-08] MEDS ORDERED: IV D5W 1,000 ML IV SCH (08:00)
--- NOTE | 2018-05-08 08:01 | NUR ---
ICU/VOLLEYBALL COACH CALLED DR PAYAN ABOUT CRITICAL LABS OF PLAT 20 AND NA 157. HE D/C CURRENT IVF AND CHANGED OVER TO D5W @ 80ML/HR. DAY NURSE MADE AWARE OF CHANGES.
[2018-05-08 08:07] LABS: *SPE A/G RATIO 0.6 (0.7-1.7); *SPE ALBUMIN 1.7 g/dL (2.9-4.4); *SPE ALPHA-1-GLOBULIN 0.4 g/dL (0.0-0.4); *SPE ALPHA-2-GLOBULIN 0.6 g/dL (0.4-1.0); *SPE BETA GLOBULIN 0.6 g/dL (0.7-1.3); *SPE GLOBULIN, TOTAL 2.7 g/dL (2.2-3.9); *SPE M-SPIKE Not Observed g/dL (Not Observed); *SPEGAMMA GLOBULIN 1.2 g/dL (0.4-1.8)
[2018-05-08] MEDS: MEROPENEM 500 MG in IV NS 0.9% 100 ML IV SCH (08:08)
[2018-05-08] MEDS: NICOTINE PATCH (14MG) 14 MG PATCH.TD24 TD SCH (08:08)
[2018-05-08] MEDS: PANTOPRAZOLE 40 MG VIAL IV SCH (08:08)
[2018-05-08] MEDS: LACTOBACILLUS RHAMNOSUS GG 1 EACH CAP.SPRINK PO SCH ×2 (08:10→16:37)
--- NOTE | 2018-05-08 08:25 | NUR ---
RN NOTE: PATIENT RECEIVED ON BIPAP RESTLESS, AGITATED, TACHYPNEIC (RR 50-60S). PATIENT SEEN AND ASSESSED BY DR. LAMBERT AT BEDSIDE. SAFETY MEASURES OBSERVED. BILATERAL SOFT WRIST RESTRAINTS ON. ATIVAN IV 2MG GIVEN PRN, WILL CONTINUE TO MONITOR. HEAD TO TOE ASSESSMENT DONE & DOCUMENTED IN FLOW SHEET INTERVENTIONS. CONTINUE TO TURN & REPOSITION Q2H. CONTINUE WITH PLAN OF CARE.
--- NOTE | 2018-05-08 09:45 | NUR ---
RT PATIENT ORALLY INTUBATED BY DR RABAGO WITH A 7.5 ETT SECURED AT 25CM VIA ANCHOR FAST. BILAT B/S HEARD, BILAT CHEST RISE NOTED. POSITIVE CO2 DETECTOR COLOR CHANGE. PATIENT PLACED ON [facility] VENT WITH SETTINGS PROVIDED BY DR LAMBERT. VENT ALARMS CHECKED + AUDIBLE. CUFF PRESSURE CHECKED COMMUNITY HEALTH PROGRAM COORDINATOR. PATIENT SUCTIONED WITH MOD AMT OF [place] BLOOD TINGED SECRETIONS. AMBU BAG AT HOB. Addendum: 05/08/18 at 1010 by CARMEN SANDOVAL RT Amended: Links added.
--- NOTE | 2018-05-08 09:50 | NUR ---
RN NOTE: PATIENT INTUBATED BY DR. RABAGO, 7.5 ETT SECURE AT 25CM. SECURE BY RT. DR. CARLOS & DR. LAMBERT AT BEDSIDE. MEDICATION ADMINISTER PER DR. RABAGO'S ORDERS. VENTILATOR SETTINGS PER DR. LAMBERT, SEE FLOWSHEET. HOB ELEVATED. NOTED BLOODY SECRETIONS FROM MOUTH WITH SUCTION. . DRY BLOOD NOTED IN MOUTH. GENTLE ORAL CARE PROVIDED. AMBU BAG AT BEDSIDE.
[2018-05-08] MEDS: PROPOFOL 100 ML IV PRN ×2 (10:10→23:31)
[2018-05-08] MEDS ORDERED: POTASSIUM CL. PREMIX PERIPHER. 50 ML IV SCH (10:18)
[2018-05-08 12:26] LABS: ABG OXYGEN SATURATION 97.8 % (92.0-98.5); ABG PCO2 69.2 mmHg (35.0-45.0); ABG PH 7.162 (7.350-7.450); ABG PO2 187.8 mmHg (75.0-100.0); COHb 0.1 % (0.5-1.5); MetHb 0.7 % (0.0-1.5); SITE, ABG Right Radial
[2018-05-08] MEDS ORDERED: NOREPINEPHRINE 8 MG in IV D5W 500 ML IV PRN (12:30)
[2018-05-08] MEDS ORDERED: FEE PK DOSING 1 MIN EA MC ONE (12:43)
--- NOTE | 2018-05-08 13:00 | NUR ---
POST ABG RESULTS PER DR LAMBERT RR INCREASED TO 20, VT INCREASED TO 600, FIO2 TITRATED TO 80% Addendum: 05/08/18 at 1301 by CARMEN SANDOVAL RT Amended: Links added.
[2018-05-08] MEDS ORDERED: ETOMIDATE 2 MG/ML VIAL ONE (13:08)
[2018-05-08] MEDS ORDERED: SUCCINYLCHOLINE CHLORIDE 20 MG/ML VIAL ONE (13:08)
[2018-05-08 15:14] LABS: ABG BASE EXCESS -1.4 mmol/L; ABG OXYGEN SATURATION 97.1 % (92.0-98.5); ABG PCO2 40.5 mmHg (35.0-45.0); ABG PH 7.382 (7.350-7.450); ABG PO2 116.4 mmHg (75.0-100.0); AaDO2 266.9 mmHg; COHb 0.1 % (0.5-1.5); MetHb 0.8 % (0.0-1.5); O2Hb 96.2 % (94.0-97.0); SITE, ABG Right Radial; VENT MODE, BG AC 20 600 60% +8
[2018-05-08] MEDS: VANCOMYCIN 1 GM in IV D5W 250 ML IV SCH (15:37)
--- NOTE | 2018-05-08 16:30 | NUR ---
RN NOTE: VENT SETTINGS CHANGED PER DR. LAMBERT BY RT, SEE FLOW-SHEET. ABG RESULTS RELAYED TO DR. LAMBERT. WOUND CARE DONE ORDERED. SAFETY MEASURES OBSERVED. CONTINUE WITH GENTLE ORAL CARE. PLASMA TRANSFUSED ORDERED. ATTEMPT TO RELEASE RESTRAINTS, NOTED PATIENT TRIED TO PULL LINES, CATHETER & VENT TUBINGS. REAPPLIED RESTRAINTS FOR SAFETY. CONTINUE ON DIPRIVAN 5 mcg FOR SEDATION. CONTINUE TO TURN & REPOSITION Q2H.
[2018-05-08] MEDS: LEVOFLOXACIN 250 MG /D5W 50 ML 250 MG in PREMIX 1 EA IV SCH (16:47)
[2018-05-08] MEDS: INSULIN REGULAR, HUMAN 100 UNIT/ML 3 ML VIAL SQ PRN (17:16)
--- NOTE | 2018-05-08 19:48 | NUR ---
CHIEF FINANCIAL OFFICER. INITIAL ASSESSMENT. RECEIVED THE PT REST ON THE BED. ORALLY INTUBATED. SEDATED WITH DIPRIVAN.ETT 7.5CM,LIP 27,AC 20,TV 600,FIO2 100%, PEEP 8. SAT 99%. PIG MACHINE OPERATOR HELPER SHOWING NSR. IV RT UPPER ARM PICC LINE IVF D5W 80ML/H, DIPRIVAN 10MCG/KG/MIN, HOB ELEVATED. NPO. CONDOM CATH INTACT. HARISH LOWER EXTREMITY WOUND. DRESSING INTACT. WILL CONTINUE TO MONITOR VITALS.
--- NOTE | 2018-05-08 19:50 | NUR ---
RECEIVED PT ORALLY INTUBATED ON VENT ON NOTED SETTINGS. 7.5 ETT SECURED AT 25CM AT THE LIP. SX'D FOR MOD AMT OF THICK LAYTON SECRETIONS. VENT ALARMS SET AND AUDIBLE. ETT CUFF SHOE LASTER. AMBU BAG AT BEDSIDE. VENT PLUGGED INTO RED OUTLET. WILL CONTINUE TO MONITOR. Addendum: 05/08/18 at 1951 by RENAY ABDUL RT Amended: Links added.
[2018-05-08] MEDS: MEROPENEM 1 G in IV NS 0.9% 100 ML IV SCH (21:02)
[2018-05-09] VITALS (88 sets, daily range): BP systolic 82–140; BP diastolic 39–71
--- NOTE | 2018-05-09 01:10 | NUR ---
RN NOTES RECEIVED REPORT FROM ANNE STILES. PATIENT IS SEDATED ON DIPROVAN RUNNING AT 30mcgs per hour ON RIGHT ARM PICC LINE (PATENT AND INTACT, FLUSHES EASY). ALSO RUNNING D5W @ 80ML PER HOUR ON RIGHT ARM PICC LINE. PATIENT IS ON LIP 27 UPON RECEIPT. PATIENT IS ON VITAL SIGNS MONITORING. SAFETY MEASURES PROVIDED.
[2018-05-09] MEDS: MEROPENEM 1 G in IV NS 0.9% 100 ML IV SCH ×2 (03:59→12:19)
[2018-05-09 05:09] LABS: BASOPHILS # (AUTO) 0.1 /CMM (0.0-0.2); BASOPHILS % (AUTO) 0.5 % (0.0-2.0); EOSINOPHILS % (AUTO) 0.1 % (0.0-6.0); HEMATOCRIT 25 % (39-51); HEMOGLOBIN 8.2 g/dL (13.5-17.5); LYMPHOCYTES # (AUTO) 4.5 /CMM (0.8-4.8); LYMPHOCYTES % (AUTO) 29.1 % (20.0-44.0); MEAN CORPUSCULAR HGB CONC 33 g/dl (31.0-36.0); MEAN CORPUSCULAR VOLUME 75 fL (80-96); MONOCYTES # (AUTO) 0.3 /CMM (0.1-1.30); MONOCYTES % (AUTO) 2.1 % (2.0-12.0); NEUTROPHILS # (AUTO) 10.4 /CMM (1.8-8.9); NEUTROPHILS % (AUTO) 68.2 % (43.0-81.0); RED BLOOD CELL COUNT(AUTO) 3.35 MIL/uL (4.5-6.0); WHITE BLOOD COUNT (AUTO) 15.3 K/uL (4.3-11.0)
[2018-05-09 05:14] LABS: PLATELET COUNT (AUTO) 23 /CMM (150-450)
[2018-05-09 05:16] LABS: COMPLEMENT C3, SERUM 50 mg/dL (82-167); COMPLEMENT C4, SERUM 7 mg/dL (14-44)
[2018-05-09 05:34] LABS: BAND % (MANUAL) 5 % (0.0-5.0); LYMPHOCYTES % (MANUAL) 2 % (16-48); MONOCYTES % (MANUAL) 1 % (0-11.0); NEUTROPHILS % (MANUAL) 92 (42-76)
[2018-05-09 05:35] LABS: CALCIUM, SERUM 7.5 mg/dL (8.5-10.1); CREATININE 2.1 mg/dL (0.6-1.3); MAGNESIUM 2.8 mg/dL (1.8-2.4); PHOSPHORUS 4.2 mg/dL (2.5-4.9); POTASSIUM 3.3 mmol/L (3.5-5.1)
[2018-05-09] MEDS: IV D5W 1,000 ML IV PRN ×2 (06:36→22:17)
[2018-05-09] MEDS: PROPOFOL 100 ML IV PRN ×3 (06:53→21:57)
--- NOTE | 2018-05-09 07:30 | NUR ---
CISCO RN NOTE: RECEIVED PATIENT IN BED, SEDATED AND ON ETT INTUBATION WITH VENT SETTING PER DR. LAMBERT. RESPIRATION EVEN AND UNLABORED SATURATING 99%. NO FACIAL GRIMACING NOTED. HOB ELEVATED. BED ALARMED AND LOCKED AT ALL TIMES. CALL LIGHT WITHIN REACH. (R) UA PICC LINE WITH 3 LUMENS NOTED PATENT AND INTACT. CURRENTLY ON DIPRIVAN DRIP.
[2018-05-09] MEDS: BLOOD SUGAR DIAGNOSTIC 1 EACH STRIP IN SCH ×3 (07:49→18:25)
--- NOTE | 2018-05-09 08:20 | NUR ---
RT PT RECEIVED ORALLY INTUBATED, 7.5 ETT SECURED AT 26CM AT THE LIP LINE. PT IS CURRENTLY SEDATED AT THIS TIME, PT ON VENT WITH NOTED SETTINGS, VENT ALARMS SET AND AUDIBLE, VENT PLUGGED IN RED OUTLET, BVM AT BEDSIDE, PT SUCTIONED WITH MODERATE THICK BROWN SECRETIONS. NO SOB, NO RESPIRATORY DISTRESS NOTED AT THIS TIME, WILL CONTINUE TO MONITOR. Addendum: 05/09/18 at 1028 by ERROL PANIAGUA RT Amended: Links added.
--- NOTE | 2018-05-09 08:24 | NUR ---
CISCO RN NOTE: SPOKE WITH DR. LAMBERT AND MADE HIM AWARE ABOUT THE PATIENT'S TEMEPERATURE OF 100.7F AXILLARY. PATIENT WAS VERY WARM TO TOUCH. REMOVED EXTRA LINENS ON THE PATIENT AND COOLING MEASURES WERE IMPLEMENTED. WITH ORDER FOR TYLENOL 650 MG RC Q6HR PRN FOR TEMP >100.1F. ORDER, NOTED AND CARRIED OUT.
[2018-05-09] MEDS: LACTOBACILLUS RHAMNOSUS GG 1 EACH CAP.SPRINK PO SCH ×2 (08:57→17:00)
[2018-05-09 08:58] LABS: ABG BASE EXCESS -1.7 mmol/L; ABG OXYGEN SATURATION 98.5 % (92.0-98.5); ABG PH 7.374 (7.350-7.450); ABG PO2 238.4 mmHg (75.0-100.0); AaDO2 144.3 mmHg; COHb 0.2 % (0.5-1.5); MetHb 1.1 % (0.0-1.5); O2Hb 97.2 % (94.0-97.0); SITE, ABG Left Radial
[2018-05-09 09:01] LABS: VENT MODE, BG AC 20 600 60% +8
[2018-05-09] MEDS: PANTOPRAZOLE 40 MG VIAL IV SCH (09:07)
[2018-05-09] MEDS: NICOTINE PATCH (14MG) 14 MG PATCH.TD24 TD SCH (09:07)
[2018-05-09] MEDS: ACETAMINOPHEN 650 MG/SUPP.RECT RC PRN (09:08)
[2018-05-09] MEDS: DAKINS HALF STRENGTH (0.25%) 480 ML BOTTLE TOP SCH (09:12)
--- NOTE | 2018-05-09 09:36 | NUR ---
CISCO RN NOTE: REPORTED TO DR. LAMBERT THE RESULT OF THE ABG AND MD WITH NEW ORDERS FOR VENT CHANGES. NOTED AND CARRIED OUT.
[2018-05-09] MEDS ORDERED: POTASSIUM CL. PREMIX PERIPHER. 50 ML IV SCH (10:31)
--- NOTE | 2018-05-09 12:10 | NUR ---
CISCO RN NOTE: PATIENT'S AXILLARY TEMP WAS NOTED 100.0F, BUT COOLING MEASURES STILL IMPLEMENTED. DR. CARLOS MADE AWARE.
--- NOTE | 2018-05-09 13:13 | NUR ---
CISCO RN NOTE: DR. CARLOS WAS PRESENT AT THE BEDSIDE MADE HIM AWARE THAT THE PATIENT HAS BEEN NPO DUE TO CURRENT CONDITION AND HIS BLOOD SUGAR HAS BEEN IN THE NORMAL RANGE. MD WITH AN ORDER TO CHANGE THE ACCUCHECK SLIDING SCALE AND WILL TRY TO INSERT A NASOGASTRIC TUBE TO GIVE FEEDING PER MD. ORDER, NOTED AND CARRIED OUT.
[2018-05-09] MEDS: VANCOMYCIN 1 GM in IV D5W 250 ML IV SCH (13:22)
[2018-05-09] MEDS ORDERED: DEXTROSE 50%-WATER 50 ML DISP.SYRIN IV PRN (13:30)
--- NOTE | 2018-05-09 15:05 | NUR ---
CISCO RN NOTE: TRIED TO INSERT A NG TUBE X 3 TIMES WITH THE ASSISTANCE OF THE SRIRAM NOLEN AND PATIENT WAS NOTED WITH BLOOD CLOTS AND RESISTANCE UPON INSERTION OF NGT. CALLED AND SPOKE WITH DR. CARLOS ABOUT IT AND HE HAD NO ORDER AT THIS TIME.
[2018-05-09] MEDS: LEVOFLOXACIN 250 MG /D5W 50 ML 250 MG in PREMIX 1 EA IV SCH (15:22)
--- NOTE | 2018-05-09 19:32 | NUR ---
CISCO RN NOTE: REPORT GIVEN TO PM SHIFT NURSE FOR CONTINUITY OF CARE. PATIENT REMAINED ON STABLE CONDITION AND WAS TOLERATING THE DIPRIVAN DRIP. RELAYED TO PM SHIFT NURSE THAT THE ULTRASOUND OF THE (L) UE WAS NOT YET DONE AND NEEDED TO BE FOLLOWED-UP.
--- NOTE | 2018-05-09 21:00 | NUR ---
RIGHT NG TUBE PLACEMENT WITH POSITIVE PLACEMENT VIA AUSCULTATE AIR INTO STOMACH BY CHARGE NURSE AND TWO RNS.
--- NOTE | 2018-05-09 23:13 | NUR ---
RT NOTE PT RCVD ORALLY INTUBATED 7.5 ETT SECURED AT 26CM @ LIP ON MECHANICAL VENT WITH CHARTED SETTINGS. PT TOLERATING VENT SETTINGS WELL. SX'D FOR MOD AMT OF THICK [place]AYTON SECRETIONS. VENT PLUGGED INTO RED OUTLET. VENT ALARMS ARE SET AND AUDIBLE. ETT CUFF CHECKED VIA [employer] DRIVER. AMBU BAG AT BEDSIDE. WILL CONTINUE TO MONITOR. Addendum: 05/09/18 at 2314 by ALEJA SANCHEZ RT Amended: Links added.
[2018-05-10] VITALS (53 sets, daily range): BP systolic 94–128; BP diastolic 46–86
[2018-05-10] MEDS: MEROPENEM 1 G in IV NS 0.9% 100 ML IV SCH ×2 (00:25→11:38)
[2018-05-10] MEDS: BLOOD SUGAR DIAGNOSTIC 1 EACH STRIP IN SCH ×4 (00:26→18:12)
[2018-05-10] MEDS: PROPOFOL 100 ML IV PRN ×4 (04:54→20:18)
[2018-05-10 05:05] LABS: BASOPHILS # (AUTO) 0.2 /CMM (0.0-0.2); BASOPHILS % (AUTO) 1.4 % (0.0-2.0); HEMATOCRIT 22 % (39-51); HEMOGLOBIN 7.2 g/dL (13.5-17.5); LYMPHOCYTES # (AUTO) 6.6 /CMM (0.8-4.8); LYMPHOCYTES % (AUTO) 40.1 % (20.0-44.0); MEAN CORPUSCULAR HGB CONC 33 g/dl (31.0-36.0); MEAN CORPUSCULAR VOLUME 74 fL (80-96); MONOCYTES # (AUTO) 0.9 /CMM (0.1-1.30); MONOCYTES % (AUTO) 5.7 % (2.0-12.0); NEUTROPHILS # (AUTO) 8.5 /CMM (1.8-8.9); NEUTROPHILS % (AUTO) 51.8 % (43.0-81.0); RED BLOOD CELL COUNT(AUTO) 2.97 MIL/uL (4.5-6.0); WHITE BLOOD COUNT (AUTO) 16.5 K/uL (4.3-11.0)
[2018-05-10 05:19] LABS: CALCIUM, SERUM 7.6 mg/dL (8.5-10.1); CREATININE 2.9 mg/dL (0.6-1.3); MAGNESIUM 2.9 mg/dL (1.8-2.4); PHOSPHORUS 4.9 mg/dL (2.5-4.9); POTASSIUM 3.5 mmol/L (3.5-5.1)
[2018-05-10 05:30] LABS: PLATELET COUNT (AUTO) 31 /CMM (150-450)
[2018-05-10 05:46] LABS: LYMPHOCYTES % (MANUAL) 3 % (16-48); MONOCYTES % (MANUAL) 3 % (0-11.0); NEUTROPHILS % (MANUAL) 94 (42-76)
[2018-05-10] MEDS: IV D5W 1,000 ML IV PRN (07:04)
--- NOTE | 2018-05-10 07:53 | NUR ---
RT PATIENT REC'D ORALLY INTUBATED ON [facility] VENT WITH ORDERED SETTINGS. VENT ALARMS CHECKED + AUDIBLE. 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 B/S DIM COARSE. PATIENT SUCTIONED WITH SMALL AMT OF PALE SEMI-THICK SECRETIONS. PATIENT NON RESPONSIVE TO VERBAL COMMANDS. NO SOB NOTED AT THIS TIME. AMBU BAG AT [facility]. Addendum: 05/10/18 at 1311 by CARMEN SANDOVAL RT Amended: Links added.
--- NOTE | 2018-05-10 08:05 | NUR ---
PT REMAINS IN NO ACUTE DISTRESS IN BED. PT DID NOT HAVE ANY SIGNIFICANT CHANGE IN CONDITION DURING SHIFT. PT TOLERATED VENT SETTING WELL. ALL NEEDS MET, ALL ORDERS CARRIED OUT. WILL ENDORSE CARE TO AM RN FOR CONTINUITY OF CARE.
--- NOTE | 2018-05-10 08:11 | NUR ---
ICU/RN: INITIAL NOTES,AM RECEIVED REPORT FROM NIGHT NURSE. PT INTUBATED AND SEDATED. ETT 7.5 26 CM @ THE LIP. PT NOTED TO BE TACHYPNEIC AND RESTLESS, WILL TITRATE DIPRIVAN PER PROTOCOL. ON TELE, PT SINUS. GENERALIZED EDEMA NOTED, PITTING +4. CONDOM CATH IN PLACE, DRAINING URINE. RIGHT NARE NG TUBE IN PLACE, PLACEMENT VERIFIED. RIGHT FOREARM PICC LINE PATENT AND INTACT, NO S/S OF INFECTION OF INFILTRATION NOTED, IV FLUIDS AND DIPRIVAN INFUSING ORDERED. ALL NEEDS WILL BE ATTENDED TO, SAFETY MEASURES TAKEN, BED IN LOW POSITION, SIDE RIALS UP, CALL LIGHT WITHIN REACH. BILATERAL WRIST RESTRAINTS IN PLACE, ASSESSED PER PROTOCOL.
[2018-05-10] MEDS: NICOTINE PATCH (14MG) 14 MG PATCH.TD24 TD SCH (09:00)
--- NOTE | 2018-05-10 09:00 | NUR ---
ICU/RN: PER NO SEDATION VACATION. PT TACHYPNEIC AND RESTLESS. INCREASE TO 45-50 MCG/KG/MIN.
[2018-05-10] MEDS: PANTOPRAZOLE 40 MG VIAL IV SCH (09:28)
[2018-05-10] MEDS: LACTOBACILLUS RHAMNOSUS GG 1 EACH CAP.SPRINK PO SCH ×2 (09:28→16:49)
[2018-05-10] MEDS: DAKINS HALF STRENGTH (0.25%) 480 ML BOTTLE TOP SCH (09:30)
[2018-05-10 09:57] LABS: ABG BASE EXCESS -3.2 mmol/L; ABG PH 7.428 (7.350-7.450); ABG PO2 117.3 mmHg (75.0-100.0); AaDO2 131.1 mmHg; COHb 0.3 % (0.5-1.5); MetHb 0.9 % (0.0-1.5); O2Hb 95.8 % (94.0-97.0); SITE, ABG Right Radial; VENT MODE, BG AC 20 600 40% +5
[2018-05-10] MEDS ORDERED: BUMETANIDE INJ 3 MG in IV NS 0.9% 48 ML IV ONE (10:30)
[2018-05-10] MEDS: VANCOMYCIN 1 GM in IV D5W 250 ML IV SCH (16:49)
[2018-05-10] MEDS ORDERED: VANCOMYCIN 1 GM in IV D5W 250 ML IV SCH (18:00)
[2018-05-10] MEDS: LEVOFLOXACIN 250 MG /D5W 50 ML 250 MG in PREMIX 1 EA IV SCH (18:13)
--- NOTE | 2018-05-10 19:30 | NUR ---
ICU/RN: ENDING NOTES,AM REPORT ENDORSED TO NIGHT NURSE FOR CONTINUATION OF CARE. ALL NEEDS ATTENDED TO. INTUBATED AND SEDATED. ON VENT SETTINGS ORDERED BY MD, NO DISTRESS NOTED. CONDOM CATH IN PLACE, DRAINING YELLOW/GREGORY URINE. BED BATH GIVEN, TURNED AND REPOSITIONED. BILATERAL WRIST RESTRAINTS IN PLACE, ASSESSED PER PROTOCOL.
--- NOTE | 2018-05-10 20:48 | NUR ---
RECEIVED PT ORALLY INTUBATED ON VENT ON NOTED SETTINGS. 7.5 ETT SECURED AT 25CM AT THE LIP. SX'D FOR MOD AMT OF THICK LAYTON SECRETIONS. VENT ALARMS SET AND AUDIBLE. ETT CUFF ANALYSIS OR RESEARCH SAFETY INSPECTOR. AMBU BAG AT BEDSIDE. VENT PLUGGED INTO RED OUTLET. WILL CONTINUE TO MONITOR. Addendum: 05/10/18 at 2048 by RENAY ABDUL RT Amended: Links added.
[2018-05-11] VITALS (53 sets, daily range): BP systolic 93–131; BP diastolic 24–77
[2018-05-11] MEDS: PROPOFOL 100 ML IV PRN ×5 (01:08→20:00)
[2018-05-11 04:57] LABS: BASOPHILS # (AUTO) 0.1 /CMM (0.0-0.2); BASOPHILS % (AUTO) 0.7 % (0.0-2.0); EOSINOPHILS % (AUTO) 1.2 % (0.0-6.0); HEMATOCRIT 23 % (39-51); HEMOGLOBIN 7.6 g/dL (13.5-17.5); LYMPHOCYTES # (AUTO) 2.7 /CMM (0.8-4.8); LYMPHOCYTES % (AUTO) 16.2 % (20.0-44.0); MEAN CORPUSCULAR HGB CONC 33 g/dl (31.0-36.0); MEAN CORPUSCULAR VOLUME 74 fL (80-96); MONOCYTES # (AUTO) 1.3 /CMM (0.1-1.30); MONOCYTES % (AUTO) 7.5 % (2.0-12.0); NEUTROPHILS # (AUTO) 12.4 /CMM (1.8-8.9); NEUTROPHILS % (AUTO) 74.4 % (43.0-81.0); RED BLOOD CELL COUNT(AUTO) 3.15 MIL/uL (4.5-6.0); WHITE BLOOD COUNT (AUTO) 16.7 K/uL (4.3-11.0)
[2018-05-11 05:09] LABS: PLATELET COUNT (AUTO) 48 /CMM (150-450)
[2018-05-11 05:26] LABS: CALCIUM, SERUM 7.4 mg/dL (8.5-10.1); CREATININE 2.8 mg/dL (0.6-1.3); MAGNESIUM 2.6 mg/dL (1.8-2.4); POTASSIUM 3.5 mmol/L (3.5-5.1)
[2018-05-11] MEDS: BLOOD SUGAR DIAGNOSTIC 1 EACH STRIP IN SCH ×4 (05:42→17:01)
[2018-05-11 05:58] LABS: EOSINOPHILS % (MANUAL) 3 % (0-4); LYMPHOCYTES % (MANUAL) 3 % (16-48); MONOCYTES % (MANUAL) 2 % (0-11.0); NEUTROPHILS % (MANUAL) 92 (42-76)
--- NOTE | 2018-05-11 06:47 | NUR ---
EXPANSION JOINT BUILDER PT TURNED AND REPOSITIONED Q2HRS; OFFLOADED EXTREMITIES. PROVIDED ORAL CARE Q2HRS. RENDERED COMPLETE BED BATH. PT NOREEN WELL. PT REMAINED ON PROPOFOL @ 45 MCG/KG/MIN W/BL SOFT WRIST RESTRAINTS PT IS NOTED TO BE WAKING UP INTERMITTENTLY.
--- NOTE | 2018-05-11 07:00 | NUR ---
RN NOTES RECEIVED PT ON BED, INTUBATED AND SEDATED, TOLEIANG CURRENT VENT SETTING WELL, ON TELE SR HR IN 90'S, GENERALIZED EDEMA NOTED, PITTING +4. DUFF DRINING TO GRAVITY, NG TUBE IN PLACE, PLACEMENT VERIFIED. RIGHT FOREARM PICC LINE PATENT AND INTACT, NO S/S OF INFECTION OF INFILTRATION NOTED, DIPRIVAN INFUSING ORDERED. DRESSING TO HARISH LE INTACT, ALL NEEDS WILL BE ATTENDED TO, SAFETY MEASURES TAKEN,SR UP x3, CALL LIGHT WITHIN EASY REACH, BED LOCKED AND IN LOWEST POSITION. BILATERAL WRIST RESTRAINTS IN PLACE FOR PT SAFETY , ASSESSED PER PROTOCOL. WILL CONTINUE TO MONITOR CLOSELY AND NOTIFY MD FOR ANY SIGNIFICANT CHANGES.
--- NOTE | 2018-05-11 08:33 | NUR ---
WOUND CARE CONSULT WOUND CARE RECEIVED CONSULT FOR POSSIBLE DTI TO BACK, BLISTERS TO BUTTOCKS AND RIGHT THIGH BRUISE. PATIENT SEEN AND SKIN INTEGRITY ASSESSMENT DONE. THE MEDIAL LOWER BACK PRESENTS REDNESS IRREGULAR SHAPED AND APPEARS TO BE BRUISING. DOES NOT APPEAR TO BE DTI AND IS NOT PRESSURE RELATED. PATIENT HAS VERY LOW PLT COUNT, MASSIVE EDEMA/SWELLING AND SEVERAL AREAS OF REDNESS TO THE BODY. THE BILATERAL BUTTOCKS ARE NOTED TO HAVE BLISTERS DUE TO EDEMA, THESE ARE NOT PRESSURE RELATED AND NOT OVER BONY AREAS. THE RIGHT THIGH REGION IS NOTED TO HAVE BRUISING. ALL DISCUSSED WITH NURSING STAFF AT THE BEDSIDE. RECOMMEND MEPILEX TO THE BUTTOCKS BLISTERS DAILY AND TO MONITOR. PODIATRY IS CURRENTLY FOLLOWING PATIENT FOR THE BILATERAL LOWER EXTREMITY ULCERS. PATIENT IS NOTED TO HAVE MULTIPLE CO-MORBIDITIES, MASSIVE EDEMA, AND FURTHER SKIN BREAKDOWN MAY BE UNAVOIDABLE. ALL PRESSURE ULCER PREVENTION MEASURES ARE NOTED TO BE IN PLACE AT THIS TIME.
[2018-05-11] MEDS: LACTOBACILLUS RHAMNOSUS GG 1 EACH CAP.SPRINK PO SCH ×2 (08:59→16:19)
[2018-05-11] MEDS: PANTOPRAZOLE 40 MG VIAL IV SCH (08:59)
[2018-05-11] MEDS: DAKINS HALF STRENGTH (0.25%) 480 ML BOTTLE TOP SCH (08:59)
[2018-05-11] MEDS: NICOTINE PATCH (14MG) 14 MG PATCH.TD24 TD SCH (08:59)
[2018-05-11] MEDS: IV D5/ 0.9% NACL 1,000 ML IV SCH ×2 (10:00→20:06)
[2018-05-11 10:12] LABS: ABG BASE EXCESS -1.8 mmol/L; ABG OXYGEN SATURATION 97.4 % (92.0-98.5); ABG PCO2 30.6 mmHg (35.0-45.0); ABG PH 7.461 (7.350-7.450); ABG PO2 128.2 mmHg (75.0-100.0); AaDO2 121.8 mmHg; COHb 0.3 % (0.5-1.5); MetHb 0.8 % (0.0-1.5); O2Hb 96.3 % (94.0-97.0); SITE, ABG Right Radial; VENT MODE, BG AC 20 600 +5 40%
[2018-05-11] MEDS: ACETAMINOPHEN 650 MG/SUPP.RECT RC PRN (10:46)
[2018-05-11] MEDS: MEROPENEM 1 G in IV NS 0.9% 100 ML IV SCH ×3 (12:00)
[2018-05-11] MEDS: VANCOMYCIN 1 GM in IV D5W 250 ML IV SCH (12:30)
[2018-05-11] MEDS: LEVOFLOXACIN 250 MG /D5W 50 ML 250 MG in PREMIX 1 EA IV SCH (15:07)
[2018-05-11] MEDS ORDERED: LIDOCAINE HCL/MPF 1% 30 ML VIAL IJ ONE (15:37)
--- NOTE | 2018-05-11 15:45 | NUR ---
RN NOTES DR CARLOS AT THE BEDSIDE, INSERTING HD CATH , CONTINUE TO MONITOR. VSS STABLE .
[2018-05-11] MEDS ORDERED: LIDOCAINE 1% INJ 50 ML MDV IJ ONE (16:00)
[2018-05-11] MEDS: Z GUARD REMEDY 4 OZ OINT TP SCH ×2 (16:46→20:06)
--- NOTE | 2018-05-11 18:49 | NUR ---
RN NOTES PT RECEIVING HD AT THIS TIME, VSS STABLE, DUFF DRINING TO GRAVITY , PROPOFOL AT 45MCG/KG/MIN RUNNING VIA R UPPER ARM PICC LINE, SR UPx3, CALL WITHIN EASY REACH, WILL ENDORSE TO MAPPING PILOT NURSE FOR CONTINUITY OF CARE .
--- NOTE | 2018-05-11 20:01 | NUR ---
RT NOTE PT RCVD ORALLY INTUBATED ON MECHANICAL VENT WITH CHARTED SETTINGS. PT TOLERATING VENT SETTINGS WELL. SX'D FOR MOD AMT OF THICK LAYTON SECRETIONS. VENT PLUGGED INTO RED OUTLET. VENT ALARMS ARE SET AND AUDIBLE. ETT CUFF CHECKED VIA RIBBON LAP MACHINE TENDER. AMBU BAG AT BEDSIDE. WILL CONTINUE TO MONITOR. Addendum: 05/11/18 at 2000 by VANCE TAVERA RT Amended: Links added.
[2018-05-12] VITALS (60 sets, daily range): BP systolic 93–158; BP diastolic 41–99
[2018-05-12] MEDS: MEROPENEM 1 G in IV NS 0.9% 100 ML IV SCH ×3 (00:45→23:40)
[2018-05-12] MEDS: BLOOD SUGAR DIAGNOSTIC 1 EACH STRIP IN SCH ×5 (00:45→23:40)
[2018-05-12] MEDS: PROPOFOL 100 ML IV PRN ×5 (01:15→20:00)
[2018-05-12 04:50] LABS: BASOPHILS # (AUTO) 0.1 /CMM (0.0-0.2); BASOPHILS % (AUTO) 0.7 % (0.0-2.0); EOSINOPHILS % (AUTO) 1.2 % (0.0-6.0); HEMATOCRIT 21 % (39-51); LYMPHOCYTES % (AUTO) 6.3 % (20.0-44.0); MEAN CORPUSCULAR HGB CONC 33 g/dl (31.0-36.0); MEAN CORPUSCULAR VOLUME 75 fL (80-96); MONOCYTES # (AUTO) 0.5 /CMM (0.1-1.30); MONOCYTES % (AUTO) 3.1 % (2.0-12.0); NEUTROPHILS # (AUTO) 14.4 /CMM (1.8-8.9); NEUTROPHILS % (AUTO) 88.7 % (43.0-81.0); PLATELET COUNT (AUTO) 74 /CMM (150-450); RED BLOOD CELL COUNT(AUTO) 2.74 MIL/uL (4.5-6.0); WHITE BLOOD COUNT (AUTO) 16.2 K/uL (4.3-11.0)
[2018-05-12 05:06] LABS: CALCIUM, SERUM 7.1 mg/dL (8.5-10.1); CREATININE 2.2 mg/dL (0.6-1.3); MAGNESIUM 2.3 mg/dL (1.8-2.4); PHOSPHORUS 5.1 mg/dL (2.5-4.9); POTASSIUM 3.7 mmol/L (3.5-5.1)
--- NOTE | 2018-05-12 05:30 | NUR ---
SECRETARY TO BOARD OF COMMISSIONERS AT BEDSIDE.
[2018-05-12 05:33] LABS: HEMOGLOBIN 6.8 g/dL (13.5-17.5)
[2018-05-12 05:56] LABS: EOSINOPHILS % (MANUAL) 1 % (0-4); LYMPHOCYTES % (MANUAL) 5 % (16-48); MONOCYTES % (MANUAL) 1 % (0-11.0); NEUTROPHILS % (MANUAL) 93 (42-76)
--- NOTE | 2018-05-12 06:08 | NUR ---
PT CURRENTLY ON DIALYSIS AND PER PLANNING CONSULTANT- HOLD VANCOMYCIN TILL FINISHED. ILL NOTIFY AM RN TO GIVE AFTER DIALYSIS IS FINISHED.
[2018-05-12] MEDS: IV D5/ 0.9% NACL 1,000 ML IV SCH ×2 (06:34→19:55)
--- NOTE | 2018-05-12 07:10 | NUR ---
RN NOTES RECEIVED PT ON BED, INTUBATED AND SEDATED, TOLEIANG CURRENT VENT SETTING WELL, ON TELE SR HR IN 70'S, RECEIVING HD AT THIS TIME VIA R FEMORA HD CATH, GENERALIZED EDEMA NOTED, PITTING +4. DUFF DRINING TO GRAVITY, NG TUBE IN PLACE, PLACEMENT VERIFIED. RIGHT FOREARM PICC LINE PATENT AND INTACT, NO S/S OF INFECTION OF INFILTRATION NOTED, DIPRIVAN INFUSING AT 50MCG/KG/ MIN RUNNING VIA R UPPER ARM PICC LINE , DRESSING TO HARISH LE INTACT, SR UP x3, CALL LIGHT WITHIN EASY REACH, BED LOCKED AND IN LOWEST POSITION. BILATERAL WRIST RESTRAINTS IN PLACE FOR PT SAFETY , WILL CONTINUE TO MONITOR .
[2018-05-12] MEDS ORDERED: ALBUMIN 25% 25 GM in PREMIX 1 EA IV ONE (08:00)
--- NOTE | 2018-05-12 08:13 | NUR ---
RT PT RECEIVED ORALLY INTUBATED WITH A 7.5 ETT SECURED AT 26CM AT THE LIP LINE. PT IS RESPONDS TO STIMULI WHEN SX'D. VENT ALARMS ARE SET AND AUDIBLE WITH BVM BY BEDSIDE. MIDDLE SCHOOL HUMANITIES TEACHER CUFF PRESSURE NOTED. VENT IS PLUGGED INTO RED OUTLET. SX'D LARGE THICK BROWN SECRETIONS. NO RESPIRATORY DISTRESS NOTED AT THIS TIME, WILL CONTINUE TO MONITOR. Addendum: 05/12/18 at 1757 by JAISON KEENE RT Amended: Links added.
[2018-05-12] MEDS: NICOTINE PATCH (14MG) 14 MG PATCH.TD24 TD SCH (08:17)
[2018-05-12] MEDS: DAKINS HALF STRENGTH (0.25%) 480 ML BOTTLE TOP SCH (08:18)
[2018-05-12] MEDS: Z GUARD REMEDY 4 OZ OINT TP SCH ×2 (08:19→21:09)
--- NOTE | 2018-05-12 09:15 | NUR ---
RN NOTES ONE UNIT OF PRBC INFUSED DURING HD , PT TOLERATED WELL, VSS STABLE , CONTINUE TO MONITOR.
[2018-05-12] MEDS: LACTOBACILLUS RHAMNOSUS GG 1 EACH CAP.SPRINK PO SCH ×2 (09:24→16:48)
--- NOTE | 2018-05-12 09:59 | NUR ---
RT DR. LAMBERT IS HOLDING WEANING FOR TODAY DUE TO PT SECRETION CLEARANCE. Addendum: 05/12/18 at 1757 by JAISON KEENE RT Amended: Links added.
[2018-05-12] MEDS: PANTOPRAZOLE 40 MG VIAL IV SCH (10:02)
[2018-05-12] MEDS: VANCOMYCIN 1 GM in IV D5W 250 ML IV SCH (10:03)
--- NOTE | 2018-05-12 11:00 | NUR ---
RN NOTES EXTUBATION CANCELLED BY DR LAMBERT AT THIS TIME , ORDER POSTPONED FOR TOMORROW MORNING . CONTINUE TO MONITOR .
[2018-05-12] MEDS: LEVOFLOXACIN 250 MG /D5W 50 ML 250 MG in PREMIX 1 EA IV SCH (15:03)
--- NOTE | 2018-05-12 16:00 | NUR ---
RN NOTES ET SUCTION DONE, O2 SAT WNL , CONTINUE TO MONITOR.
--- NOTE | 2018-05-12 18:22 | NUR ---
RN NOTES NO SIGNIFICANT CHANGES NOTED ON THIS SHIFT, PROPOFOL AT 50MCG/KG/ MIN . PT IS SEDATED , WILL ENDORSE TO RUBBISH COLLECTION SUPERVISOR NURSE FOR CONTINUITY OF CARE .
[2018-05-12] MEDS: LORAZEPAM INJ 2 MG/ML VIAL IV PRN (18:53)
--- NOTE | 2018-05-12 20:00 | NUR ---
Received patient sedated on Diprivan gtt on full vent support on AC mode.No acute respiratory distress noted.Continued on bedside cardiac monitoring showing SR with BBB.Normotensive.NGT left nares intact and patent.Kept NPO with ivf infusing at KVO to GERRI PICC Line and site intact.FC to gravity drainage with lisa urine.Turned and repositioned.
[2018-05-12] MEDS: ACETAMINOPHEN 650 MG/SUPP.RECT RC PRN (23:39)
[2018-05-13] VITALS (59 sets, daily range): BP systolic 90–147; BP diastolic 39–85
[2018-05-13] MEDS: PROPOFOL 100 ML IV PRN ×6 (00:08→23:24)
--- NOTE | 2018-05-13 00:30 | NUR ---
Patient febrile 101.4 up to 102.2 Tylenol supp administered.Continuous cooling measures done.Turned and repositioned.Continue to monitor.
[2018-05-13] MEDS: VANCOMYCIN 1 GM in IV D5W 250 ML IV SCH (01:30)
[2018-05-13 05:32] LABS: CALCIUM, SERUM 7.1 mg/dL (8.5-10.1); CREATININE 1.9 mg/dL (0.6-1.3); MAGNESIUM 1.8 mg/dL (1.8-2.4); PHOSPHORUS 5.8 mg/dL (2.5-4.9); POTASSIUM 3.4 mmol/L (3.5-5.1)
[2018-05-13 05:40] LABS: BASOPHILS # (AUTO) 0.1 /CMM (0.0-0.2); BASOPHILS % (AUTO) 0.3 % (0.0-2.0); EOSINOPHILS % (AUTO) 0.4 % (0.0-6.0); HEMATOCRIT 22 % (39-51); LYMPHOCYTES # (AUTO) 0.7 /CMM (0.8-4.8); LYMPHOCYTES % (AUTO) 3.3 % (20.0-44.0); MEAN CORPUSCULAR HGB CONC 32 g/dl (31.0-36.0); MEAN CORPUSCULAR VOLUME 78 fL (80-96); MONOCYTES # (AUTO) 0.7 /CMM (0.1-1.30); MONOCYTES % (AUTO) 3.5 % (2.0-12.0); NEUTROPHILS # (AUTO) 18.8 /CMM (1.8-8.9); NEUTROPHILS % (AUTO) 92.5 % (43.0-81.0); PLATELET COUNT (AUTO) 74 /CMM (150-450); RED BLOOD CELL COUNT(AUTO) 2.79 MIL/uL (4.5-6.0); WHITE BLOOD COUNT (AUTO) 20.4 K/uL (4.3-11.0)
[2018-05-13 05:47] LABS: HEMOGLOBIN 6.9 g/dL (13.5-17.5)
--- NOTE | 2018-05-13 06:10 | NUR ---
PT RECEIVED ORALLY INTUBATED WITH A 7.5 ETT SECURED AT 26CM AT THE LIP LINE. PT IS RESPONDS TO STIMULI WHEN SX'D. VENT ALARMS ARE SET AND AUDIBLE WITH BVM BY BEDSIDE. JACQUARD LOOM WEAVER CUFF PRESSURE NOTED. VENT IS PLUGGED INTO RED OUTLET. SX'D LARGE THICK BROWN SECRETIONS. NO RESPIRATORY DISTRESS NOTED AT THIS TIME, WILL CONTINUE TO MONITOR.
[2018-05-13 06:19] LABS: LYMPHOCYTES % (MANUAL) 3 % (16-48); MONOCYTES % (MANUAL) 2 % (0-11.0); NEUTROPHILS % (MANUAL) 95 (42-76)
[2018-05-13] MEDS: BLOOD SUGAR DIAGNOSTIC 1 EACH STRIP IN SCH ×4 (06:38→23:50)
--- NOTE | 2018-05-13 07:08 | NUR ---
Patient resting appears comfortable.VS stable.Latest temp 99.1.All due medications given. H/H 6.9/21.7 notified no orders received.Will endorse to day shift RN for continuity of care.
--- NOTE | 2018-05-13 07:44 | NUR ---
INITIAL ED MANAGER NOTE RCVD PT MILDLY SEDATED ON DIPRIVAN, INTUBATED ETT 7.5 26 AT LIP, TOLERATING ORDERED VENT SETTINGS WELL. NG-TUBE PLACEMENT VERIFIED BY AUSCULTATION AND RETURN OF GASTRIC CONTENTS. DUFF TO GRAVITY WITH YELLOW URINE. IV SITES C/D/I/PATENT. NO S/O INFILTRATION/PHLEBITIS OBSERVED UPON FLUSHING. BLE DRESSING C/D/I. WILL CONTINUE TO MONITOR PT FOR SAFETY AND COMFORT. BED IN LOW AND LOCKED POSITION. CALL LIGHT WITHIN REACH.
[2018-05-13] MEDS: NICOTINE PATCH (14MG) 14 MG PATCH.TD24 TD SCH (08:01)
[2018-05-13] MEDS: LACTOBACILLUS RHAMNOSUS GG 1 EACH CAP.SPRINK PO SCH ×2 (08:01→17:39)
[2018-05-13] MEDS: PANTOPRAZOLE 40 MG VIAL IV SCH (08:01)
[2018-05-13] MEDS: Z GUARD REMEDY 4 OZ OINT TP SCH ×2 (08:02→21:00)
[2018-05-13] MEDS: DAKINS HALF STRENGTH (0.25%) 480 ML BOTTLE TOP SCH (08:02)
[2018-05-13] MEDS: HYDROMORPHONE 1 MG/1 ML DISP.SYRIN IV PRN ×2 (08:36→17:39)
[2018-05-13] MEDS ORDERED: POTASSIUM PHOSPHATE MM 7.5 MMOL in IV D5W 100 ML IV SCH (10:00)
[2018-05-13] MEDS: POTASSIUM CL. PREMIX PERIPHER. 50 ML IV SCH ×2 (10:28→11:37)
--- NOTE | 2018-05-13 11:54 | NUR ---
FORENSIC PHOTOGRAPHER NOTE SEDATION VACATION DONE PT AWAKE AND ABLE TO FOLLOW SIMPLE COMMANDS. NO S/O DISTRESS OBSERVED. PT NODDED WHEN EDUCATED REGARDING WEANING TRIAL. PT WAS PLACED ON SIMV FOR ABOUT AN HOUR AND NODDED WHEN ASKED IF HE WAS STRUGGLING TO BREATHE. RT PLACED PT BACK ON AC MODE. DR. CARLOS CONTACTED REGARDING PT'S HGB 6.9 THIS AM ORDER FOR 2 UNITS PRBCs GIVEN AND ENTERED. WILL F/U WITH BLOOD BANK.
[2018-05-13] MEDS ORDERED: VANCOMYCIN 1 GM in IV D5W 250 ML IV PRN (12:30)
[2018-05-13] MEDS: MEROPENEM 1 G in IV NS 0.9% 100 ML IV SCH ×2 (13:39→23:50)
[2018-05-13 16:25] LABS: OCCULT BLOOD STOOL POSITIVE (NEGATIVE)
[2018-05-13] MEDS: NEPRO 1,000 ML BOTTLE GT PRN (17:39)
[2018-05-13] MEDS: PROSOURCE / PROSTAT (PYXIS) 30 ML UDC GT SCH (17:39)
[2018-05-13] MEDS: ACETAMINOPHEN 650 MG/SUPP.RECT RC PRN (17:40)
--- NOTE | 2018-05-13 18:33 | NUR ---
TIRE CHANGER AIRCRAFT NOTE PT REMAINS INTUBATED, LIGHTLY SEDATED ON DIPRIVAN RASS -1, OPENS EYES TO NAME, SR ON MONITOR, TOLERATING ORDERED VENT SETTINGS. NG-TUBE PLACEMENT VERIFIED BY AUSCULTATION/ASPIRATION OF GASTRIC CONTENTS, TUBE FEEDING STARTED ORDERED. DUFF TO GRAVITY DRAINING GREGORY COLORED URINE. GERRI PICC C/D/I/PATENT, NO S/O INFILTRATION/PHLEBITIS OBSERVED UPON FLUSHING. PT'S CARE WILL BE ENDORSED TO SENIOR INTERACTIVE DEVELOPER RN FOR CONTINUITY OF CARE. BED IN LOW AND LOCKED POSITION, HEAD OF BED ELEVATED AT 30 DEGREES. CALL LIGHT WITHIN REACH. PT WAS TRANSFUSED 2 UNITS PRBC's TODAY, STOOL SENT FOR OB THIS WAS +. DR. CARLOS AWARE OF RESULTS.
[2018-05-13] MEDS ORDERED: VANCOMYCIN 1 GM VIAL ONE (19:29)
--- NOTE | 2018-05-13 20:00 | NUR ---
Received patient mildly sedated on Diprivan gtt on full vent support.No distress noted.SR per monitor.NGT feeding in progress.NGT placement verified and patent.No residual noted.Feeding rate increased to 40 ml/hr per protocol goal rate 70 ml.HOB elevated.FC to gravity drainage with lisa urine.Turned and repositioned.
--- NOTE | 2018-05-13 20:56 | NUR ---
Received pt on vent support, pt is stable on noted settings, alarms are on and audible, ventilator is plugged into red outlet, ambu bag at bedside. Will continue monitoring patient. Addendum: 05/13/18 at 2056 by VANCE TAVERA RT Amended: Links added.
[2018-05-14] VITALS (37 sets, daily range): BP systolic 94–128; BP diastolic 39–73
[2018-05-14] MEDS: PROPOFOL 100 ML IV PRN ×5 (04:05→21:07)
[2018-05-14 04:53] LABS: BASOPHILS # (AUTO) 0.1 /CMM (0.0-0.2); BASOPHILS % (AUTO) 0.8 % (0.0-2.0); EOSINOPHILS % (AUTO) 3.1 % (0.0-6.0); HEMATOCRIT 28 % (39-51); HEMOGLOBIN 9.2 g/dL (13.5-17.5); LYMPHOCYTES # (AUTO) 1.3 /CMM (0.8-4.8); LYMPHOCYTES % (AUTO) 10.4 % (20.0-44.0); MEAN CORPUSCULAR HGB CONC 33 g/dl (31.0-36.0); MEAN CORPUSCULAR VOLUME 80 fL (80-96); MONOCYTES # (AUTO) 0.9 /CMM (0.1-1.30); MONOCYTES % (AUTO) 7.4 % (2.0-12.0); NEUTROPHILS # (AUTO) 9.8 /CMM (1.8-8.9); NEUTROPHILS % (AUTO) 78.3 % (43.0-81.0); PLATELET COUNT (AUTO) 97 /CMM (150-450); RED BLOOD CELL COUNT(AUTO) 3.54 MIL/uL (4.5-6.0); WHITE BLOOD COUNT (AUTO) 12.5 K/uL (4.3-11.0)
[2018-05-14 05:10] LABS: CALCIUM, SERUM 7.1 mg/dL (8.5-10.1); CREATININE 1.8 mg/dL (0.6-1.3); MAGNESIUM 2.1 mg/dL (1.8-2.4); PHOSPHORUS 5.2 mg/dL (2.5-4.9); POTASSIUM 3.3 mmol/L (3.5-5.1)
[2018-05-14 05:39] LABS: EOSINOPHILS % (MANUAL) 3 % (0-4); LYMPHOCYTES % (MANUAL) 4 % (16-48); MONOCYTES % (MANUAL) 3 % (0-11.0); NEUTROPHILS % (MANUAL) 90 (42-76)
[2018-05-14] MEDS: BLOOD SUGAR DIAGNOSTIC 1 EACH STRIP IN SCH ×3 (07:00→17:18)
--- NOTE | 2018-05-14 07:10 | NUR ---
Patient resting.VS remains stable.Tolerating vent settings well.NGT feeding tolerating.BM x2. Kept clean and dry.All needs met.No significant change noted.Report given to day shift RN for SRINIVASA.
--- NOTE | 2018-05-14 07:10 | NUR ---
RN INITIAL NOTES RECEIVED PT EYES OPEN, FOLLOW COMMANDS. PT INTUBATED. TOLERATING VENT WELL. NO SOB NOTED. HOB ELEVATED. ON DIPRIVAN AT 50MCG/KG/MIN. GERRI PICC IN PLACE. LEFT NGT IN PLACE. TOLERATING GTF WELL. NO RESIDUAL NOTED. RIGHT FEMORAL HD CATH IN PLACE. FC IN PLACE. NO HEMATURIA NOTED. PT COMFORTABLE. WILL MONITOR.
[2018-05-14] MEDS: PANTOPRAZOLE 40 MG VIAL IV SCH (08:20)
[2018-05-14] MEDS: LACTOBACILLUS RHAMNOSUS GG 1 EACH CAP.SPRINK PO SCH ×2 (08:20→16:21)
[2018-05-14] MEDS: NICOTINE PATCH (14MG) 14 MG PATCH.TD24 TD SCH (08:20)
[2018-05-14] MEDS: Z GUARD REMEDY 4 OZ OINT TP SCH ×2 (08:22→21:27)
[2018-05-14] MEDS: DAKINS HALF STRENGTH (0.25%) 480 ML BOTTLE TOP SCH (08:22)
[2018-05-14] MEDS: PROSOURCE / PROSTAT (PYXIS) 30 ML UDC GT SCH ×2 (09:00→17:20)
[2018-05-14] MEDS ORDERED: POTASSIUM CHLORIDE 20 MEQ POWDER PACKET NG SCH (09:30)
[2018-05-14] MEDS: MEROPENEM 1 G in IV NS 0.9% 100 ML IV SCH ×2 (12:07→19:55)
--- NOTE | 2018-05-14 12:30 | NUR ---
RN NOTES SEEN AND EXAMINED BY DR PERRY. AWARE OF CURRENT LAB VALUES AND CXR RESULT. WILL MONITOR.
[2018-05-14] MEDS: ACETAMINOPHEN 650 MG/SUPP.RECT RC PRN (14:28)
[2018-05-14] MEDS ORDERED: VANCOMYCIN 500 MG in IV D5W 100 ML IV PRN (16:00)
[2018-05-14] MEDS: NEPRO 1,000 ML BOTTLE GT PRN (16:21)
--- NOTE | 2018-05-14 18:44 | NUR ---
RN CLOSING NOTES PT REMAINS STABLE. NO SIGNIFICANT CHANGE NOTED. NO RESPIRATORY DISTRESS NOTED. VS WNL. TX PROVIDED ORDERED. KEPT CLEAN AND DRY. REPOSITIONED Q2. WILL ENDORSE FOR CONTINUITY OF CARE.
--- NOTE | 2018-05-14 19:39 | NUR ---
ICU/SUPPLY CHAIN CONSULTANT RECEIVED REPORT FROM DAY NURSE. SEE FLOWSHEET FOR ASSESSMENT AND ANY SKIN ISSUES WHICH ARE ADDRESSED HERE FOR TREATMENT AND PLAN OF CARE. PT IS CURRENTLY ORALLY INTUBATED, TOLERATING CURRENT VENT SETTINGS WITH SATURATION 97-99%. PT WAS TURNED AND REPOSITIONED FOR COMFORT AND CARE. WILL CONTINUE TO MONITOR THIS PT FOR ANY CHANGES WHICH REQUIRE IMMEDIATE INTERVENTIONS. PT APPEARS TO RESTING COMFORTABLY.
--- NOTE | 2018-05-14 23:20 | NUR ---
ICU/YARDER PUNCHER PT'S BLOOD SUGAR IS 123, THERE IS NO COVERAGE FOR THIS PER MD'S ORDERS. WILL CONTINUE TO MONITOR THIS PT'S SUGAR ORDERED AND HOSPITAL PROTOCOL. PT WAS TURNED AND REPOSITIONED FOR COMFORT AND CARE.
[2018-05-15] VITALS (38 sets, daily range): BP systolic 94–121; BP diastolic 43–97
[2018-05-15] MEDS: BLOOD SUGAR DIAGNOSTIC 1 EACH STRIP IN SCH ×4 (00:32→17:46)
[2018-05-15] MEDS: PROPOFOL 100 ML IV PRN ×8 (00:58→22:16)
--- NOTE | 2018-05-15 02:30 | NUR ---
ICU/TOUR COORDINATOR PROVIDED CARE TO PT AT THIS TIME, AND ALSO DID TUESDAY WOUND PHOTO DOCUMENTATION. THESE WERE PLACED IN CHART. PT WAS TURNED AND REPOSITIONED FOR COMFORT AND CARE.
--- NOTE | 2018-05-15 04:15 | NUR ---
ICU/GLASS WASHER AND CARRIER AM LABS WITH CHEST XRAY DONE, AWAIT FOR ANY ABNORMAL RESULTS.
[2018-05-15] MEDS: MEROPENEM 1 G in IV NS 0.9% 100 ML IV SCH ×3 (04:20→21:55)
[2018-05-15 04:28] LABS: BASOPHILS # (AUTO) 0.1 /CMM (0.0-0.2); BASOPHILS % (AUTO) 1.1 % (0.0-2.0); EOSINOPHILS % (AUTO) 1.5 % (0.0-6.0); HEMATOCRIT 29 % (39-51); HEMOGLOBIN 9.3 g/dL (13.5-17.5); LYMPHOCYTES # (AUTO) 1.1 /CMM (0.8-4.8); LYMPHOCYTES % (AUTO) 8.2 % (20.0-44.0); MEAN CORPUSCULAR HGB CONC 33 g/dl (31.0-36.0); MEAN CORPUSCULAR VOLUME 80 fL (80-96); MONOCYTES # (AUTO) 1.3 /CMM (0.1-1.30); MONOCYTES % (AUTO) 9.5 % (2.0-12.0); NEUTROPHILS # (AUTO) 10.6 /CMM (1.8-8.9); NEUTROPHILS % (AUTO) 79.7 % (43.0-81.0); PLATELET COUNT (AUTO) 152 /CMM (150-450); RED BLOOD CELL COUNT(AUTO) 3.57 MIL/uL (4.5-6.0); WHITE BLOOD COUNT (AUTO) 13.3 K/uL (4.3-11.0)
[2018-05-15 04:53] LABS: CALCIUM, SERUM 7.4 mg/dL (8.5-10.1); CREATININE 1.6 mg/dL (0.6-1.3); PHOSPHORUS 4.9 mg/dL (2.5-4.9)
--- NOTE | 2018-05-15 05:30 | NUR ---
ICU/DIRECTOR OF LAND ACQUISITION PT HAD TEMP YESTERDAY DAY SHIFT OF 102.0, SPUTUM CULTURE WAS SENT IN FOR THE TEMP.
--- NOTE | 2018-05-15 06:10 | NUR ---
ICU/FAMILY SERVICE CASEWORKER PT'S BLOOD SUGAR IS 119, THERE IS NO COVERAGE FOR THIS PER MD'S ORDERS. WILL CONTINUE TO MONITOR THIS PT'S SUGAR ORDERED AND HOSPITAL PROTOCOL. PT WAS TURNED AND REPOSITIONED FOR COMFORT AND CARE.
--- NOTE | 2018-05-15 06:20 | NUR ---
RT PT RECEIVED ORALLY INTUBATED WITH ETT SECURED AT 26CM AT THE LIP LINE. PT IS RESPONDS TO STIMULI WHEN SX'D. VENT ALARMS ARE SET AND AUDIBLE WITH BVM BY BEDSIDE. LATEXER CUFF PRESSURE NOTED. VENT IS PLUGGED INTO RED OUTLET. SX'D LARGE THICK BROWN SECRETIONS. NO RESPIRATORY DISTRESS NOTED AT THIS TIME, WILL CONTINUE TO MONITOR. Addendum: 05/15/18 at 0620 by YENIFER CHAKRABORTY RT Amended: Links added.
--- NOTE | 2018-05-15 06:40 | NUR ---
ICU/SUPERVISORY INVESTIGATIVE SPECIALIST CRITICAL LAB VALUE OF LEFT SIDED PNEUMOTHORAX, SMALL TO MODERATE. NOTIFIED NIGHT CHARGE NURSE AND DAY CHARGE NURSE.
--- NOTE | 2018-05-15 07:37 | NUR ---
WOUND CARE CONSULT WOUND CARE RECEIVED CONSULT FOR DTI TO LEFT HEEL. PATIENT SEEN AND LEFT HEEL EVALUATED. NO DTI PRESENT WITH WOUND DIRECTOR CLINICAL PHARMACOLOGY. REDNESS PREVIOUSLY SEEN HAS NOW RESOLVE, DISCUSSED WITH NURSING STAFF, RECOMMEND CONTINUE TO FLOAT BILATERAL HEELS. Addendum: 05/15/18 at 0747 by CHERELLE SERVIN WNDNU Amended: Links added.
[2018-05-15] MEDS: PROSOURCE / PROSTAT (PYXIS) 30 ML UDC GT SCH ×2 (08:08→17:46)
[2018-05-15] MEDS: PANTOPRAZOLE 40 MG VIAL IV SCH (08:08)
[2018-05-15] MEDS: LORAZEPAM INJ 2 MG/ML VIAL IV PRN (08:09)
[2018-05-15] MEDS: DAKINS HALF STRENGTH (0.25%) 480 ML BOTTLE TOP SCH (08:09)
[2018-05-15] MEDS: NICOTINE PATCH (14MG) 14 MG PATCH.TD24 TD SCH (08:09)
[2018-05-15] MEDS: LACTOBACILLUS RHAMNOSUS GG 1 EACH CAP.SPRINK PO SCH ×2 (08:09→17:46)
[2018-05-15] MEDS: Z GUARD REMEDY 4 OZ OINT TP SCH ×2 (08:10→21:15)
[2018-05-15 09:20] LABS: ABG BASE EXCESS -1.9 mmol/L; ABG OXYGEN SATURATION 96.2 % (92.0-98.5); ABG PCO2 30.2 mmHg (35.0-45.0); ABG PH 7.463 (7.350-7.450); ABG PO2 88.3 mmHg (75.0-100.0); AaDO2 162.2 mmHg; COHb 0.3 % (0.5-1.5); MetHb 0.5 % (0.0-1.5); O2Hb 95.4 % (94.0-97.0); PEEP,BG 5 cm H2O; SITE, ABG Right Radial; VENT MODE, BG AC 20 600 40%
--- NOTE | 2018-05-15 09:35 | NUR ---
RN NOTE 0720: Received patient awake. With ETT to vent, tolerated settings, no respiratory distress noted at this time. With left NGT intact, GT feeding tolerated, no residuals noted. GERRI PICC intact. On Diprivan @ 50mcg. Right femoral HD cath intact. Pope cath intact, noted with moderate amount of lisa colored urine drained to BSD. BLE wound dressing CDI. MOLDED GOODS EMBOSSING PRESS OPERATOR restraints on for safety. 0815: Ativan PRN given as ordered for patient noted with frequent movement, trying to turn by himself and trying to dangle feet out of bed. 0840: Dr. Hunter in the unit, aware for the CXR result. With order to repeat CXR and DCd PEEP, made RT aware. Obtained order to may increase Diprivan dose to 100mcg. 0850: Dr. Matta informed for the LUE duplex was done 05/09 and neg for DVT, MD Umanzor repeat order. 0935: manufacturing engineering technician at bedside, Dr. Hunter saw imaging and tried to contact Dr. Matta for chest tube placement.
--- NOTE | 2018-05-15 10:48 | NUR ---
RN NOTE 1030: Chest tube left side done by Dr. Matta. VSS. Diprivan placed to 100mcg from 50mcg as verbally ordered by Dr. Matta for prep for CT placement. 1045: CXR done SP CT placement, Dr. Hunter seen the imaging, in good placement per MD.
[2018-05-15] MEDS: POTASSIUM CHLORIDE 20 MEQ POWDER PACKET GT SCH ×3 (10:55→11:42)
[2018-05-15] MEDS: NEPRO 1,000 ML BOTTLE GT PRN (12:43)
[2018-05-15] MEDS: ACETAMINOPHEN 650 MG/SUPP.RECT RC PRN (15:21)
[2018-05-15] MEDS ORDERED: TUBERCULIN,PURIF.PROT.DERIV. 5 TU/0.1 ML VIAL ID ONE (18:00)
--- NOTE | 2018-05-15 18:47 | NUR ---
RN NOTE 1630: Did CT abd/pelvis, patient back to bed. VSS. Changed linens and did bed bath. Administered Tylenol supp for fever 100.8. 1744: CT abd result relayed to Dr. Matta. no new order at this time. 1829: S/E by ID, with order to do PPD test. PPD administered to RFA, encircled with marker. Will endorse and monitor. 1944: HD nurse at bedside.
--- NOTE | 2018-05-15 19:30 | NUR ---
Received patient sedated on full vent support.HD at bedside in progress.No acute distress noted.Left Chest Tube to 20 cm suction draining serosanguineous liquid output. SR per cardiac monitoring.NGT feeding infusing no residual noted.NGT placement verified by auscultation.FC to gravity drainage with yellow urine.Continue monitoring.
[2018-05-15] MEDS: METRONIDAZOLE 500 MG TABLET PO SCH (21:16)
--- NOTE | 2018-05-15 21:56 | NUR ---
RECEIVED PT INTUBATED ON VENT. NO RESP DISTRESS. PT TOLERATING VENT SETTINGS. ALARMS SET AND AUDIBLE. AMBU BAG AT BEDSIDE. VENT PLUGGED INTO RED OUTLET. WILL CONTINUE TO MONITOR. Addendum: 05/15/18 at 2157 by RENAY ABDUL RT Amended: Links added.
[2018-05-15] MEDS: VANCOMYCIN 500 MG VIAL ONE ×2 (22:00→22:30)
[2018-05-16] VITALS (48 sets, daily range): BP systolic 92–119; BP diastolic 52–69
[2018-05-16] MEDS: BLOOD SUGAR DIAGNOSTIC 1 EACH STRIP IN SCH ×4 (00:04→18:18)
[2018-05-16] MEDS: PROPOFOL 100 ML IV PRN ×8 (01:12→23:26)
--- NOTE | 2018-05-16 02:00 | NUR ---
AM bed bath rendered.Dressing to CT site and LE remains dry and intact.Turned and repositioned.
[2018-05-16] MEDS: ACETAMINOPHEN 650 MG/SUPP.RECT RC PRN ×3 (03:16→17:02)
--- NOTE | 2018-05-16 03:16 | NUR ---
Temp 100.7 tylenol supp.inserted rectally.Continuous cooling measures done.Turned and repositioned.
[2018-05-16 04:46] LABS: BASOPHILS # (AUTO) 0.2 /CMM (0.0-0.2); BASOPHILS % (AUTO) 1.8 % (0.0-2.0); EOSINOPHILS % (AUTO) 3.1 % (0.0-6.0); HEMATOCRIT 26 % (39-51); HEMOGLOBIN 8.6 g/dL (13.5-17.5); LYMPHOCYTES # (AUTO) 1.4 /CMM (0.8-4.8); LYMPHOCYTES % (AUTO) 12.3 % (20.0-44.0); MEAN CORPUSCULAR HGB CONC 33 g/dl (31.0-36.0); MEAN CORPUSCULAR VOLUME 80 fL (80-96); MONOCYTES # (AUTO) 1.3 /CMM (0.1-1.30); MONOCYTES % (AUTO) 11.4 % (2.0-12.0); NEUTROPHILS # (AUTO) 8.2 /CMM (1.8-8.9); NEUTROPHILS % (AUTO) 71.4 % (43.0-81.0); PLATELET COUNT (AUTO) 145 /CMM (150-450); RED BLOOD CELL COUNT(AUTO) 3.29 MIL/uL (4.5-6.0); WHITE BLOOD COUNT (AUTO) 11.5 K/uL (4.3-11.0)
[2018-05-16] MEDS: METRONIDAZOLE 500 MG TABLET PO SCH ×3 (05:00→21:00)
[2018-05-16] MEDS: MEROPENEM 1 G in IV NS 0.9% 100 ML IV SCH ×3 (05:00→20:10)
[2018-05-16 05:11] LABS: CALCIUM, SERUM 7.4 mg/dL (8.5-10.1); CREATININE 1.3 mg/dL (0.6-1.3); PHOSPHORUS 3.7 mg/dL (2.5-4.9); POTASSIUM 3.4 mmol/L (3.5-5.1)
--- NOTE | 2018-05-16 07:14 | NUR ---
Patient remains febrile 101.1.Cooling measures continued.Endorsed to day shift RN for continuity of care.Turned and repositioned. No acute distress noted.NGT feeding well tolerated
[2018-05-16] MEDS: PANTOPRAZOLE 40 MG VIAL IV SCH (08:25)
[2018-05-16] MEDS: NICOTINE PATCH (14MG) 14 MG PATCH.TD24 TD SCH (08:25)
[2018-05-16] MEDS: LACTOBACILLUS RHAMNOSUS GG 1 EACH CAP.SPRINK PO SCH ×2 (08:25→17:02)
[2018-05-16] MEDS: PROSOURCE / PROSTAT (PYXIS) 30 ML UDC GT SCH ×2 (08:25→17:02)
[2018-05-16] MEDS: Z GUARD REMEDY 4 OZ OINT TP SCH ×2 (08:26→21:00)
[2018-05-16] MEDS: DAKINS HALF STRENGTH (0.25%) 480 ML BOTTLE TOP SCH (08:26)
[2018-05-16] MEDS ORDERED: POTASSIUM CHLORIDE 20 MEQ TAB.PRT.SR PO ONE (09:30)
[2018-05-16] MEDS ORDERED: POTASSIUM CHLORIDE 20 MEQ POWDER PACKET NG ONE (09:30)
[2018-05-16] MEDS: NEPRO 1,000 ML BOTTLE GT PRN (09:34)
[2018-05-16 09:47] LABS: ABG BASE EXCESS 2.4 mmol/L; ABG OXYGEN SATURATION 91.2 % (92.0-98.5); ABG PCO2 32.8 mmHg (35.0-45.0); ABG PH 7.505 (7.350-7.450); ABG PO2 60.6 mmHg (75.0-100.0); AaDO2 186.9 mmHg; COHb 0.3 % (0.5-1.5); MetHb 0.5 % (0.0-1.5); O2Hb 90.5 % (94.0-97.0); PEEP,BG 0 cm H2O; SITE, ABG Right Radial; VENT MODE, BG AC 20 550 40%
--- NOTE | 2018-05-16 10:54 | NUR ---
RN NOTE 0720: Received patient awake. With ETT to vent, tolerated settings, no respiratory distress noted at this time. With left NGT intact, GT feeding tolerated, no residuals noted. GERRI PICC intact. On Diprivan @ 75mcg. Right femoral HD cath intact. Pope cath intact, noted with moderate amount of lisa colored urine drained to BSD. BLE wound dressing CDI. NURSE ADMINISTRATOR restraints on for safety. Left side chest tube intact. 0850: Rendered sedation vacation, able to track voice but unable to squeeze hands for edema. Kept BUE elevated. 0910: S/E by Dr. Hunter, no new order at this time.
[2018-05-16] MEDS: FLUCONAZOLE (100 MG) 100 MG TABLET PO SCH (18:18)
--- NOTE | 2018-05-16 18:28 | NUR ---
RN NOTE 1200: Placed patient on cooling blanket due to 101.7, will continue to monitor. 1800: S/E by Nikita YOUNG, with Diflucan order to start and BC. 1820: Temp 100.7, Tylenol Supp given as ordered one hour ago. Still on cooling blanket.
--- NOTE | 2018-05-16 20:00 | NUR ---
Received patient on cooling blanket Temp 100.3.Remains intubated to vent on prescribed settings.No respiratory distress noted.SR per monitor.NGT feeding in progress.Placement verified no residual noted. FC to gravity drainage with yellow urine with some sediments.Will turn and reposition Q 2 hrs.Diprivan gtt infusing at 70 mcg via GERRI PICC Line.Site intact.
--- NOTE | 2018-05-16 21:00 | NUR ---
Patient hyperventilating RR 35-40 per min.Desat to low 80's.Diprivan gtt titrated to sedation.
[2018-05-17] VITALS (49 sets, daily range): BP systolic 73–162; BP diastolic 31–125
--- NOTE | 2018-05-17 | NUR ---
Patient vs unstable.Cooling measures continuous.Tele SR.Tolerating feeding.AM care done. Turned and repositioned.
[2018-05-17] MEDS: BLOOD SUGAR DIAGNOSTIC 1 EACH STRIP IN SCH ×4 (00:13→17:30)
[2018-05-17] MEDS: PROPOFOL 100 ML IV PRN ×3 (02:45→18:20)
[2018-05-17] MEDS: MEROPENEM 1 G in IV NS 0.9% 100 ML IV SCH ×3 (04:16→20:10)
[2018-05-17] MEDS: METRONIDAZOLE 500 MG TABLET PO SCH ×3 (05:00→22:18)
[2018-05-17 05:19] LABS: BASOPHILS # (AUTO) 0.3 /CMM (0.0-0.2); BASOPHILS % (AUTO) 2.6 % (0.0-2.0); EOSINOPHILS % (AUTO) 3.3 % (0.0-6.0); HEMATOCRIT 25 % (39-51); HEMOGLOBIN 8.1 g/dL (13.5-17.5); LYMPHOCYTES # (AUTO) 1.4 /CMM (0.8-4.8); LYMPHOCYTES % (AUTO) 14.6 % (20.0-44.0); MEAN CORPUSCULAR HGB CONC 33 g/dl (31.0-36.0); MEAN CORPUSCULAR VOLUME 81 fL (80-96); MONOCYTES # (AUTO) 1.1 /CMM (0.1-1.30); MONOCYTES % (AUTO) 11.8 % (2.0-12.0); NEUTROPHILS # (AUTO) 6.6 /CMM (1.8-8.9); NEUTROPHILS % (AUTO) 67.7 % (43.0-81.0); PLATELET COUNT (AUTO) 197 /CMM (150-450); RED BLOOD CELL COUNT(AUTO) 3.06 MIL/uL (4.5-6.0); WHITE BLOOD COUNT (AUTO) 9.7 K/uL (4.3-11.0)
[2018-05-17 05:35] LABS: BILIRUBIN,DIRECT 0.6 mg/dL (0.0-0.2); BILIRUBIN,TOTAL 0.8 mg/dL (0.2-1.0); CALCIUM, SERUM 7.3 mg/dL (8.5-10.1); CREATININE 1.3 mg/dL (0.6-1.3); MAGNESIUM 1.9 mg/dL (1.8-2.4); PHOSPHORUS 4.7 mg/dL (2.5-4.9); POTASSIUM 3.6 mmol/L (3.5-5.1)
[2018-05-17 05:46] LABS: ALBUMIN 1.2 g/dL (3.4-5.0)
[2018-05-17] MEDS: NEPRO 1,000 ML BOTTLE GT PRN (05:57)
--- NOTE | 2018-05-17 06:00 | NUR ---
Patient status unchanged.Diprivan gtt decreased to 70 mcg for weaning trial to SIMV today. Tolerating feeding.Good amount urine output.No BM noted.FSBS WNL.Turned and repositioned. No distress noted.
--- NOTE | 2018-05-17 06:44 | NUR ---
Patient with PPD test to RFA READING DUE ON 05/18/18 AT 1800.Will endorse to day shift RN for continuity of care.
--- NOTE | 2018-05-17 07:10 | NUR ---
Shift report given to ANNE Harrison for continuity of care.
[2018-05-17] MEDS: Z GUARD REMEDY 4 OZ OINT TP SCH ×2 (08:46→22:06)
[2018-05-17] MEDS: NICOTINE PATCH (14MG) 14 MG PATCH.TD24 TD SCH (08:46)
[2018-05-17] MEDS: LACTOBACILLUS RHAMNOSUS GG 1 EACH CAP.SPRINK PO SCH ×2 (08:46→17:34)
[2018-05-17] MEDS: PANTOPRAZOLE 40 MG VIAL IV SCH (08:46)
[2018-05-17] MEDS: DAKINS HALF STRENGTH (0.25%) 480 ML BOTTLE TOP SCH (08:46)
[2018-05-17] MEDS: PROSOURCE / PROSTAT (PYXIS) 30 ML UDC GT SCH ×2 (09:10→17:34)
--- NOTE | 2018-05-17 09:20 | NUR ---
RT PER DR LAMBERT ORDER PATIENT PLACED ON VENT WEANING MODE. ALARMS CHECKED AND AUDIBLE. PATIENT AWAKE AND ABLE TO FOLLOW COMMANDS. AMBU BAG AT HOB Addendum: 05/17/18 at 1021 by CARMEN SANDOVAL RT Amended: Links added.
[2018-05-17] MEDS ORDERED: ACETAMINOPHEN 650 MG/20.3 ML UDC NG PRN (09:30)
[2018-05-17 10:42] LABS: ABG BASE EXCESS 0.3 mmol/L; ABG OXYGEN SATURATION 96.4 % (92.0-98.5); ABG PCO2 34.6 mmHg (35.0-45.0); ABG PH 7.457 (7.350-7.450); ABG PO2 98.8 mmHg (75.0-100.0); AaDO2 146.6 mmHg; COHb 0.3 % (0.5-1.5); MetHb 0.6 % (0.0-1.5); O2Hb 95.5 % (94.0-97.0); PEEP,BG 5 cm H2O; SITE, ABG Right Radial
[2018-05-17] MEDS: HYDROMORPHONE 1 MG/1 ML DISP.SYRIN IV PRN (12:48)
[2018-05-17] MEDS: VANCOMYCIN 1 GM in IV D5W 250 ML IV SCH (14:00)
[2018-05-17] MEDS: FLUCONAZOLE (100 MG) 100 MG TABLET PO SCH (17:34)
--- NOTE | 2018-05-17 19:15 | NUR ---
ICU/RN RECEIVED PT ON VENT VIA ORAL ETT.W/35% FI02,SATURATING 95-96%.RECEIVING TUBE FEEDING OF JEVITY AT 45ML/HR.CHECKED FOR PATENCY,PLACEMENT,NO RESIDUAL OBTAINED. Addendum: 05/17/18 at 2245 by TATI DONIS RN NEPHRO AT 45 ML/HR
[2018-05-18] VITALS (43 sets, daily range): BP systolic 63–146; BP diastolic 35–86
--- NOTE | 2018-05-18 | NUR ---
ICU/RN PT AWAKE AND COOPERATIVE,TOLERATING SIMV OF 4,ON DIPRIVAN AT 20MCG/KG/MIN.
[2018-05-18] MEDS: BLOOD SUGAR DIAGNOSTIC 1 EACH STRIP IN SCH ×4 (00:26→17:11)
--- NOTE | 2018-05-18 02:00 | NUR ---
ICU/RN INCONTINENT OF LARGE PASTY YELLOW,BED BATH DONE.CALM AND COOPERATIVE.
[2018-05-18] MEDS: VANCOMYCIN 1 GM in IV D5W 250 ML IV SCH (02:38)
[2018-05-18] MEDS: NEPRO 1,000 ML BOTTLE GT PRN (03:08)
[2018-05-18] MEDS: MEROPENEM 1 G in IV NS 0.9% 100 ML IV SCH ×3 (03:53→21:35)
[2018-05-18] MEDS: PROPOFOL 100 ML IV PRN (04:23)
[2018-05-18 04:36] LABS: BASOPHILS # (AUTO) 0.3 /CMM (0.0-0.2); BASOPHILS % (AUTO) 3.4 % (0.0-2.0); HEMATOCRIT 25 % (39-51); HEMOGLOBIN 8.1 g/dL (13.5-17.5); LYMPHOCYTES # (AUTO) 1.2 /CMM (0.8-4.8); LYMPHOCYTES % (AUTO) 12.8 % (20.0-44.0); MEAN CORPUSCULAR HGB CONC 33 g/dl (31.0-36.0); MEAN CORPUSCULAR VOLUME 82 fL (80-96); MONOCYTES # (AUTO) 1.1 /CMM (0.1-1.30); NEUTROPHILS # (AUTO) 6.3 /CMM (1.8-8.9); NEUTROPHILS % (AUTO) 67.8 % (43.0-81.0); PLATELET COUNT (AUTO) 241 /CMM (150-450); WHITE BLOOD COUNT (AUTO) 9.4 K/uL (4.3-11.0)
[2018-05-18 04:54] LABS: CALCIUM, SERUM 7.8 mg/dL (8.5-10.1); CREATININE 1.2 mg/dL (0.6-1.3); MAGNESIUM 2.1 mg/dL (1.8-2.4); PHOSPHORUS 4.5 mg/dL (2.5-4.9); POTASSIUM 3.3 mmol/L (3.5-5.1)
[2018-05-18] MEDS: METRONIDAZOLE 500 MG TABLET PO SCH ×3 (05:00→21:32)
--- NOTE | 2018-05-18 05:23 | NUR ---
PER DR LAMBERT ORDER PATIENT REMAINED ON VENT WEANING MODE. ALARMS CHECKED AND AUDIBLE. PATIENT AWAKE AND ABLE TO FOLLOW COMMANDS. AMBU BAG AT HOB. NO DISTRESS NOTED THROUGHOUT SHIFT WAS ABLE TO TOLERATE SETTINGS
--- NOTE | 2018-05-18 06:00 | NUR ---
ICU/RN LT LATERAL CT TO 20 SUCTION INTACT NO AIR LEAK NOTED.DRESSING DRY AND INTACT.
--- NOTE | 2018-05-18 07:04 | NUR ---
ICU/RN REPORT AND REPORT OF PATIENT GIVEN TO URSULA
--- NOTE | 2018-05-18 07:40 | NUR ---
received pt from assistant casino shift manager, sedated on Diprivan at 20mcg, SR, ST, on the vent SIMV, lungs partially congested, BL arm edema, NG to feeding tolerates well, f/c good output, v/s stable, no pain, pt turned and repositioned.
[2018-05-18] MEDS ORDERED: DC PROPOFOL WHEN EXTUBATED XX PRN (08:00)
--- NOTE | 2018-05-18 08:00 | NUR ---
pt off of Diprivan for CPAP.
--- NOTE | 2018-05-18 08:20 | NUR ---
WOUND CARE CONSULT PATIENT SEEN AND SACRAL EXTENDING TO THE BUTTOCKS WOUND EVALUATED. PLEASE SEE WOUND CNC MILL OPERATOR IN PCS FOR TODAY. RECOMMEND SURGICAL CONSULT, TREATMENT PLAN DISCUSSED WITH NURSING STAFF AT THE BEDSIDE. PATIENT CONTINUES TO HAVE MULTIPLE CO-MORBIDITIES AND FURTHER SKIN BREAKDOWN MAY CONTINUE TO BE UNAVOIDABLE. ALL PRESSURE ULCER PREVENTION MEASURES ARE NOTED TO BE IN PLACE AT THE TIME OF THIS SKIN BREAKDOWN. Addendum: 05/18/18 at 0824 by CHERELLE SERVIN WNDNU Amended: Links added.
[2018-05-18] MEDS ORDERED: POTASSIUM CHLORIDE 20 MEQ POWDER PACKET GT ONE (08:30)
[2018-05-18] MEDS: NICOTINE PATCH (14MG) 14 MG PATCH.TD24 TD SCH (08:59)
[2018-05-18] MEDS: PANTOPRAZOLE 40 MG VIAL IV SCH (08:59)
[2018-05-18] MEDS: LACTOBACILLUS RHAMNOSUS GG 1 EACH CAP.SPRINK PO SCH ×2 (08:59→16:12)
[2018-05-18] MEDS: PROSOURCE / PROSTAT (PYXIS) 30 ML UDC GT SCH ×2 (09:01→16:12)
[2018-05-18] MEDS: DAKINS HALF STRENGTH (0.25%) 480 ML BOTTLE TOP SCH (09:01)
[2018-05-18] MEDS: Z GUARD REMEDY 4 OZ OINT TP SCH ×2 (09:02→21:37)
[2018-05-18] MEDS: DAKINS QUARTER STRENGTH (0.125%) 480 ML BOTTLE TOP SCH (09:02)
[2018-05-18 09:23] LABS: ABG BASE EXCESS 4.4 mmol/L; ABG OXYGEN SATURATION 95.8 % (92.0-98.5); ABG PCO2 39.1 mmHg (35.0-45.0); ABG PH 7.477 (7.350-7.450); ABG PO2 87.1 mmHg (75.0-100.0); AaDO2 153.1 mmHg; COHb 0.3 % (0.5-1.5); MetHb 0.8 % (0.0-1.5); O2Hb 94.7 % (94.0-97.0); PEEP,BG 5 cm H2O; SITE, ABG Right Radial; VENT MODE, BG CPAP
--- NOTE | 2018-05-18 09:30 | NUR ---
pt extubated per md order. zero distress noted strong cough able to clear airway. on low flow o2
--- NOTE | 2018-05-18 09:30 | NUR ---
pt is extubated successfully, on 5L NC, alert, follows commands.
[2018-05-18] MEDS ORDERED: IV D5W 1,000 ML IV ONE (10:00)
[2018-05-18 12:06] LABS: CHLORIDE,URINE RANDOM 51 mmol/L (55-125); POTASSIUM RNDM,URINE 27 mmol/L (25-125); URINE SODIUM, RANDOM 40 mmol/l (40-220)
[2018-05-18 12:09] LABS: OSMOLALITY,URINE 522 mOS/kg (340-1090)
--- NOTE | 2018-05-18 16:28 | NUR ---
pt is resting in the bed, alert, follows commands, SR, on 5L 02 sat well, able to swallow apple sauce, good urine output, v/s stable, no pain, pt cleaned and changed.
[2018-05-18] MEDS: FLUCONAZOLE (100 MG) 100 MG TABLET PO SCH (17:11)
--- NOTE | 2018-05-18 19:10 | NUR ---
ICU/RN RECEIVED PT AWAKE ALERT ,COOPERATIVE.ON 5LN/C,RESPIRATIONS REGULAR AND EVEN.DENIES SHORTNESS OF BREATH,DENIES PAIN.MONITOR SHOWS SINUS TACH.
--- NOTE | 2018-05-18 21:00 | NUR ---
ICU/RN COUGHING UP THICK PURULENT SECRETIONS.SUCTIONED BACK OF THROAT W/ SAME SECRETIONS.
[2018-05-19] VITALS (19 sets, daily range): BP systolic 112–162; BP diastolic 65–84
[2018-05-19] MEDS: BLOOD SUGAR DIAGNOSTIC 1 EACH STRIP IN SCH ×5 (00:26→23:19)
--- NOTE | 2018-05-19 00:28 | NUR ---
ICU/RN CONTINUES TO COUGH UP THICK PURULENT SECRETIONS.SAT 994-95%
--- NOTE | 2018-05-19 03:00 | NUR ---
ICU/RN SUCTIONED FOR COPIOUS AMT OF THICK GREENISH -YELLOW SECRETIONS.REPOSITIONED.OFFERS NO COMPLAINTS.
[2018-05-19] MEDS: MEROPENEM 1 G in IV NS 0.9% 100 ML IV SCH ×2 (03:56→12:18)
[2018-05-19] MEDS: METRONIDAZOLE 500 MG TABLET PO SCH ×3 (04:44→20:26)
[2018-05-19 04:47] LABS: BASOPHILS # (AUTO) 0.3 /CMM (0.0-0.2); BASOPHILS % (AUTO) 3.6 % (0.0-2.0); EOSINOPHILS % (AUTO) 2.1 % (0.0-6.0); HEMATOCRIT 24 % (39-51); HEMOGLOBIN 7.9 g/dL (13.5-17.5); LYMPHOCYTES # (AUTO) 1.6 /CMM (0.8-4.8); LYMPHOCYTES % (AUTO) 19.1 % (20.0-44.0); MEAN CORPUSCULAR HGB CONC 33 g/dl (31.0-36.0); MEAN CORPUSCULAR VOLUME 82 fL (80-96); MONOCYTES % (AUTO) 12.1 % (2.0-12.0); NEUTROPHILS # (AUTO) 5.3 /CMM (1.8-8.9); NEUTROPHILS % (AUTO) 63.1 % (43.0-81.0); PLATELET COUNT (AUTO) 313 /CMM (150-450); RED BLOOD CELL COUNT(AUTO) 2.93 MIL/uL (4.5-6.0); WHITE BLOOD COUNT (AUTO) 8.5 K/uL (4.3-11.0)
[2018-05-19 05:20] LABS: BILIRUBIN,TOTAL 0.9 mg/dL (0.2-1.0); CALCIUM, SERUM 7.9 mg/dL (8.5-10.1); CREATININE 1.1 mg/dL (0.6-1.3); MAGNESIUM 2.1 mg/dL (1.8-2.4); PHOSPHORUS 4.1 mg/dL (2.5-4.9); POTASSIUM 3.5 mmol/L (3.5-5.1); TOTAL PROTEIN, SERUM 6.6 g/dL (6.4-8.2)
[2018-05-19 05:39] LABS: ALBUMIN 1.3 g/dL (3.4-5.0)
--- NOTE | 2018-05-19 05:54 | NUR ---
ICU/RN DEXTROSE 50 1AMP IVP GIVEN FOR BS OF 59.WILL RECHECK SUGAR IN 15MIN.
--- NOTE | 2018-05-19 06:10 | NUR ---
ICU/RN ACCUCHECK REPEATED POST [id number]
[2018-05-19] MEDS ORDERED: VANCOMYCIN 1 GM in IV D5W 250 ML IV SCH ×3 (08:00→21:00)
--- NOTE | 2018-05-19 08:24 | NUR ---
received pt from night, shift, alert, follows commands, SR, on 5L 02 sat well, lungs partially congested, L chest tube intact no leak noted, v/s stable, no pain, pt turned and repositioned.
[2018-05-19] MEDS: DAKINS HALF STRENGTH (0.25%) 480 ML BOTTLE TOP SCH (08:27)
[2018-05-19] MEDS: Z GUARD REMEDY 4 OZ OINT TP SCH ×2 (08:28→20:26)
[2018-05-19] MEDS: DAKINS QUARTER STRENGTH (0.125%) 480 ML BOTTLE TOP SCH (08:28)
[2018-05-19] MEDS: NICOTINE PATCH (14MG) 14 MG PATCH.TD24 TD SCH (08:32)
[2018-05-19] MEDS: PANTOPRAZOLE 40 MG VIAL IV SCH (08:32)
[2018-05-19] MEDS: LACTOBACILLUS RHAMNOSUS GG 1 EACH CAP.SPRINK PO SCH ×2 (08:32→17:35)
[2018-05-19] MEDS: PROSOURCE / PROSTAT (PYXIS) 30 ML UDC GT SCH ×2 (08:33→17:36)
--- NOTE | 2018-05-19 10:45 | NUR ---
WET PROCESS ASSISTANT HEAD MILLER NOTES RECEIVED REPORT FROM URSULA RODRÍGUEZ FOR SRINIVASA
--- NOTE | 2018-05-19 12:18 | NUR ---
MANUFACTURING PRODUCTION TECHNICIAN NOTES ACCUCHECK DONE. BS 76 MG/DL. NO INSULIN COVERAGE GIVEN DARRYL GONSALEZ AT BEDSIDE. AWARE OF ALBUMIN LEVEL 1.3. IVF RATE INCREASED FROM 20 ML/HR TO 80 ML/HR PER DR. LAMBERT. PM CARE DONE.
--- NOTE | 2018-05-19 13:08 | NUR ---
RN NOTES PATIENT TRANSFERRED TO ROOM 111-2. [facility]. STABLE CONDITION. REPORT GIVEN TO ADAM Hinton AT BEDSIDE.
[2018-05-19] MEDS: FLUCONAZOLE (100 MG) 100 MG TABLET PO SCH (17:36)
[2018-05-19] MEDS: CEFEPIME 1 GM in IV D5W 50 ML IV SCH (20:25)
[2018-05-19] MEDS: IV D5W 1,000 ML IV PRN (20:57)
[2018-05-20] VITALS: BP 116/69
[2018-05-20 04:00] VITALS: BP 107/71
[2018-05-20] MEDS: METRONIDAZOLE 500 MG TABLET PO SCH ×3 (05:00→21:17)
[2018-05-20] MEDS: BLOOD SUGAR DIAGNOSTIC 1 EACH STRIP IN SCH ×4 (05:31→23:37)
--- NOTE | 2018-05-20 05:32 | NUR ---
PT UNABLE TO SWALLOW FLAGYL PO, WILL NOTIFY
[2018-05-20 07:39] LABS: BASOPHILS # (AUTO) 0.3 /CMM (0.0-0.2); EOSINOPHILS % (AUTO) 3.6 % (0.0-6.0); HEMATOCRIT 23 % (39-51); HEMOGLOBIN 7.4 g/dL (13.5-17.5); LYMPHOCYTES # (AUTO) 1.9 /CMM (0.8-4.8); LYMPHOCYTES % (AUTO) 18.9 % (20.0-44.0); MEAN CORPUSCULAR HGB CONC 33 g/dl (31.0-36.0); MEAN CORPUSCULAR VOLUME 83 fL (80-96); MONOCYTES # (AUTO) 0.9 /CMM (0.1-1.30); MONOCYTES % (AUTO) 8.9 % (2.0-12.0); NEUTROPHILS # (AUTO) 6.6 /CMM (1.8-8.9); NEUTROPHILS % (AUTO) 65.6 % (43.0-81.0); PLATELET COUNT (AUTO) 316 /CMM (150-450); RED BLOOD CELL COUNT(AUTO) 2.77 MIL/uL (4.5-6.0)
[2018-05-20 08:00] VITALS: BP 117/68
[2018-05-20 08:01] LABS: CALCIUM, SERUM 7.7 mg/dL (8.5-10.1); CREATININE 1.1 mg/dL (0.6-1.3)
--- NOTE | 2018-05-20 08:10 | NUR ---
RN NOTE: PATIENT RECEIVED ALERT AWAKE ORIENTED X 2. ON O2 NC 5LPM, NO BREATHING DISTRESS NOTED. DENIES PAIN & DISCOMFORT. CHEST TUBE CLAMPED. SAFETY MEASURES OBSERVED. CONTINUE WITH IV FLUIDS ORDERED. CONTINUE TO MONITOR.
[2018-05-20] MEDS: PROSOURCE / PROSTAT (PYXIS) 30 ML UDC GT SCH ×2 (08:44→17:59)
[2018-05-20] MEDS: LACTOBACILLUS RHAMNOSUS GG 1 EACH CAP.SPRINK PO SCH ×2 (08:44→17:59)
[2018-05-20] MEDS: CEFEPIME 1 GM in IV D5W 50 ML IV SCH ×2 (08:44→21:17)
[2018-05-20] MEDS: NICOTINE PATCH (14MG) 14 MG PATCH.TD24 TD SCH (08:44)
[2018-05-20] MEDS: PANTOPRAZOLE 40 MG VIAL IV SCH (08:44)
[2018-05-20] MEDS: IV D5W 1,000 ML IV PRN ×3 (08:45→21:20)
[2018-05-20] MEDS: DAKINS HALF STRENGTH (0.25%) 480 ML BOTTLE TOP SCH (08:49)
[2018-05-20] MEDS: Z GUARD REMEDY 4 OZ OINT TP SCH ×2 (08:49→21:18)
[2018-05-20] MEDS: DAKINS QUARTER STRENGTH (0.125%) 480 ML BOTTLE TOP SCH (08:49)
--- NOTE | 2018-05-20 10:00 | NUR ---
RN NOTE: CHEST TUBE REMOVED. CHEST TUBE REMOVED BY DR. LAMBERT AT BEDSIDE. PRESSURE DRESSING APPLIED. VITAL SIGNS STABLE. PROCEDURE TOLERATED WELL. CHEST X-RAY WITHIN 1 HOUR.
[2018-05-20] MEDS: POTASSIUM CHLORIDE 20 MEQ TAB.PRT.SR PO SCH ×3 (11:00→13:09)
--- NOTE | 2018-05-20 11:00 | NUR ---
RN NOTE: PATIENT DISCUSSED WITH NEGRETTE MATERIAL HANDLER. OK TO START CLEAR LIQUID DIET AFTER BEDSIDE SWALLOW EVALUATION. CONTINUE TO MONITOR.
[2018-05-20 14:17] LABS: IRON, SERUM 13 ug/dl (50-175); TOTAL IRON BINDING CAPACITY 113 ug/dl (250-450)
[2018-05-20 14:31] LABS: FERRITIN 463 ng/mL (8-388)
[2018-05-20 16:00] VITALS: BP 111/65
[2018-05-20] MEDS: FLUCONAZOLE (100 MG) 100 MG TABLET PO SCH (17:59)
--- NOTE | 2018-05-20 19:14 | NUR ---
RN NOTE: NO SIGNIFICANT CHANGES NOTED DURING SHIFT. ENDORSED TO PM SHIFT FOR CONTINUITY OF CARE.
[2018-05-20 19:57] VITALS: BP 106/69
[2018-05-20 20:00] VITALS: BP_SYST 106; BP_SYST 152; BP_DIAS 69; BP_DIAS 83
[2018-05-21 04:00] VITALS: BP 110/70
[2018-05-21 04:41] VITALS: BP 110/70
[2018-05-21] MEDS: BLOOD SUGAR DIAGNOSTIC 1 EACH STRIP IN SCH ×4 (06:02→23:13)
[2018-05-21] MEDS: INSULIN REGULAR, HUMAN 100 UNIT/ML 3 ML VIAL SQ PRN (06:02)
[2018-05-21] MEDS: METRONIDAZOLE 500 MG TABLET PO SCH ×3 (06:02→20:18)
[2018-05-21] MEDS: IV D5W 1,000 ML IV PRN ×2 (07:26→23:56)
[2018-05-21 08:00] VITALS: BP 112/68
--- NOTE | 2018-05-21 08:00 | NUR ---
MS RN NOTES PATIENT IN BED RESTING NO SOB OR ACUTE DISTRESS NOTED. PATIENT ALERT, ORIENTED X2. PATIENT DENIES ANY PAIR OR DISCOMFORT. PATIENT WITH MIDLINE ON LEFT UPPER ARM . PATIENT NOTED WITH LEFT ARM PITTING EDEMA +3 NARCISA GONSALEZ MADE AWARE ORDERED DOPPLER ULTRASOUND ON LEFT ARM. NOTED AND CARRIED OUT. ULTRASOUND MADE AWARE. CALL LIGHT WITHIN REACH . BED IN LOW LOCKED POSITION WILL CONTINUE TO MONITOR.
[2018-05-21] MEDS: NICOTINE PATCH (14MG) 14 MG PATCH.TD24 TD SCH (08:40)
[2018-05-21] MEDS: LACTOBACILLUS RHAMNOSUS GG 1 EACH CAP.SPRINK PO SCH ×2 (08:40→16:10)
[2018-05-21] MEDS: CEFEPIME 1 GM in IV D5W 50 ML IV SCH ×2 (08:40→20:17)
[2018-05-21] MEDS: PANTOPRAZOLE 40 MG VIAL IV SCH (08:40)
[2018-05-21] MEDS: PROSOURCE / PROSTAT (PYXIS) 30 ML UDC GT SCH ×2 (08:40→16:12)
[2018-05-21] MEDS: DAKINS HALF STRENGTH (0.25%) 480 ML BOTTLE TOP SCH (08:41)
[2018-05-21] MEDS: DAKINS QUARTER STRENGTH (0.125%) 480 ML BOTTLE TOP SCH (09:00)
[2018-05-21] MEDS: Z GUARD REMEDY 4 OZ OINT TP SCH ×2 (09:48→20:18)
[2018-05-21 11:22] LABS: BASOPHILS # (AUTO) 0.2 /CMM (0.0-0.2); BASOPHILS % (AUTO) 1.7 % (0.0-2.0); HEMATOCRIT 24 % (39-51); HEMOGLOBIN 7.6 g/dL (13.5-17.5); LYMPHOCYTES # (AUTO) 1.9 /CMM (0.8-4.8); LYMPHOCYTES % (AUTO) 17.5 % (20.0-44.0); MEAN CORPUSCULAR HGB CONC 32 g/dl (31.0-36.0); MEAN CORPUSCULAR VOLUME 83 fL (80-96); MONOCYTES # (AUTO) 0.6 /CMM (0.1-1.30); MONOCYTES % (AUTO) 5.9 % (2.0-12.0); NEUTROPHILS # (AUTO) 7.7 /CMM (1.8-8.9); NEUTROPHILS % (AUTO) 70.9 % (43.0-81.0); PLATELET COUNT (AUTO) 318 /CMM (150-450); RED BLOOD CELL COUNT(AUTO) 2.83 MIL/uL (4.5-6.0); WHITE BLOOD COUNT (AUTO) 10.9 K/uL (4.3-11.0)
[2018-05-21 11:31] LABS: CALCIUM, SERUM 7.7 mg/dL (8.5-10.1); CREATININE 1.2 mg/dL (0.6-1.3)
[2018-05-21 11:41] LABS: POTASSIUM 2.8 mmol/L (3.5-5.1)
--- NOTE | 2018-05-21 11:48 | NUR ---
CALLED AND PAGED NARCISA GONSALEZ NP RE: THE POTASSIUM LEVEL 2.8 AWAITING FOR WEBMETHODS ARCHITECT'S RESPONSE. PRIMARY NURSE DEJA WEBBER.
[2018-05-21] MEDS: POTASSIUM CL. PREMIX PERIPHER. 50 ML IV SCH ×4 (13:07→17:22)
[2018-05-21 16:00] VITALS: BP 109/54
[2018-05-21] MEDS: FLUCONAZOLE (100 MG) 100 MG TABLET PO SCH (17:22)
[2018-05-21] MEDS: HYDROMORPHONE 1 MG/1 ML DISP.SYRIN IV PRN (17:44)
--- NOTE | 2018-05-21 18:44 | NUR ---
MS RN NOTES PATIENT IN BED RESTING NO SOB OR ACUTE DISTRESS NOTED. PATIENT ALERT, ORIENTED X2 DENIES ANY PAIN OR DISCOMFORT. ALL DUE MEDICATIONS ADMINISTERED. ALL NEEDS MET WILL ENDORSE TO PM SHIFT.
--- NOTE | 2018-05-21 19:18 | NUR ---
MS/RN OPENING NOTES RECEIVED PATIENT IN BED, RESTING COMFORTABLY BUT WITHRAWN, CAN OPEN EYES AND VERBALIZE NEEDS. DISCUSSED PLAN OF CARE. RESPIRATIONS EVEN AND UNLABORED. PROVIDED EDUCATION THE IMPORTANCE OF REPOSITIONING TO PREVEN FURTHER SKIN BREAKDOWN, CALL LIGHTS WITHIN REACH, BED LOCKED, WILL MONITOR.
[2018-05-21 20:00] VITALS: BP 101/53
--- NOTE | 2018-05-21 20:00 | NUR ---
MS/RN NOTES OBSERVE LEFT HAND SWOLLEN, DOPPLER TO BE DONE CYNTHIA AM.
--- NOTE | 2018-05-21 23:07 | NUR ---
MS/RN NOTES ASHKANN BS CHECK AT 90, TO PROVIDE SOME SNACKS, ARM LWFT ELEVATED, ABLE TO FLUSH IV LINE, IV ANTIBIOTIC ADMINISTERED BUT TO REPORT TO MD FLUIDS IV DUE TO BEING SWOLLEN.
--- NOTE | 2018-05-21 23:46 | NUR ---
MS/RN NOTES MD RO WAS MADE AWARE REGARDING PATIENTS ARM BEING SWOLLEN, WITH IV MIDLINE ABLE TO FLUSH, TO MONITOR AND CONTINUE WITH FLUIDS ORDERED PER MD.
[2018-05-22] VITALS (12 sets, daily range): BP systolic 90–136; BP diastolic 49–68
[2018-05-22] MEDS: METRONIDAZOLE 500 MG TABLET PO SCH ×3 (04:51→21:07)
[2018-05-22] MEDS: HYDROMORPHONE 1 MG/1 ML DISP.SYRIN IV PRN ×3 (05:24→23:01)
--- NOTE | 2018-05-22 05:30 | NUR ---
MS/RN NOTES PATIETN REPORTED PAIN OBSERVE GRIMACE AND GUARDING, IV FLUIDS RUNNING, SB/P CHECK AT 110/56, PROVIDED FLUIDS, IV DILAUDID GIVEN ORDERED DOSE WILL MONITOR PAIN RELIEF.
[2018-05-22] MEDS: BLOOD SUGAR DIAGNOSTIC 1 EACH STRIP IN SCH ×4 (05:32→23:00)
--- NOTE | 2018-05-22 06:26 | NUR ---
MS/RN NOTES CLOSING NOTES PATIENT ABLE TO SLEEP INTERMITENTLY, PROVIDED NEEDS, RESPIRATIONS EVEN AND UNLABORED, DISCUSSED PLAN OF CARE, OBTAINED CONSENT, CHECK LIST PREPARED, MD AWAR, FOR PROCEDURE TODAY AND REMAINED NPO SINCE MIDNIGHT, WOUND CARE DONE, PHOTOS TAKEN OF WOUND, REPOSTION FOR COMFORT, KEEP EXTREMITIES OFF LOAD, PAIN MANAGED WITH PRN , VITAL SIOGNS CHECK, OFFERED AND PROVIDED FLUIDS, BED LOCKED, WILL ENDORSE TO AM RN FOR SRINIVASA.
--- NOTE | 2018-05-22 06:48 | NUR ---
MS/RN NOTES SURGERY CALLED F/U REGARDING PATIENT SAID WILL COME [place] 730 TO SHOE IRONER PATIENT, TO KEEP PATIENT NPO.
[2018-05-22 07:00] LABS: BASOPHILS # (AUTO) 0.2 /CMM (0.0-0.2); BASOPHILS % (AUTO) 2.1 % (0.0-2.0); HEMATOCRIT 21 % (39-51); LYMPHOCYTES # (AUTO) 1.5 /CMM (0.8-4.8); LYMPHOCYTES % (AUTO) 13.7 % (20.0-44.0); MEAN CORPUSCULAR HGB CONC 33 g/dl (31.0-36.0); MEAN CORPUSCULAR VOLUME 83 fL (80-96); MONOCYTES # (AUTO) 0.6 /CMM (0.1-1.30); MONOCYTES % (AUTO) 5.2 % (2.0-12.0); PLATELET COUNT (AUTO) 262 /CMM (150-450); RED BLOOD CELL COUNT(AUTO) 2.47 MIL/uL (4.5-6.0); WHITE BLOOD COUNT (AUTO) 10.9 K/uL (4.3-11.0)
[2018-05-22 07:01] LABS: CALCIUM, SERUM 7.4 mg/dL (8.5-10.1); CREATININE 0.9 mg/dL (0.6-1.3)
--- NOTE | 2018-05-22 07:10 | NUR ---
MS/RN OPENING NOTE THE PATIENT IS RECEIVED IN BED. AWAKE, ALERT AND ORIENTED X2. DENIES SOB. RESPIRATION REGULAR AND UNLABORED. THE PATIENT IS IN ROOM AIR. DENIES PAIN. THE PATIENT IS NOTED WITH ARON MIDLINE FLUSHING WELL BUT THE ARON IS NOTICEABLY SWOLLEN. RADIAL PULSE PRESENT. NO APPARENT S/S OR POOR CIRCULATION NOTED. PER OLERICULTURE PROFESSOR REPORT MD WAS MADE AWARE. THE PATIENT IS SCHEDULED TO HAVE LEFT UPPER EXTREMITY DUPLEX TODAY. WILL FOLLOW UP UNTIL DONE. ELEVATED THE LEFT ARM ON A PILLOW. PATIENT REMIANS NPO SINCE MIDNIGHT FOR AM EGD. BED LOW AND LOCKED. SIDE RAILS UP X3. CALL LIGHT WITHIN REACH. WILL CONTINUE TO MONITOR.
--- NOTE | 2018-05-22 07:31 | NUR ---
MS/RN NOTE RECEIVED A CALL FROM LAB REPORTING POTASSIUM LEVEL OF 2.7. THE PATIENT IS GETTING TRANSFERRED TO OR FOR EGD AT THAT TIME. PRE-OP NURSE IS MADE AWARE OF THE VALUE. THE PATIENT. PER KSENIA-OP NURSE SHE WILL FOLLOW UP WITH MD. THE PATIENT LEFT THE UNIT IN STABLE CONDITION.
[2018-05-22 07:35] LABS: POTASSIUM 2.7 mmol/L (3.5-5.1)
[2018-05-22 08:21] LABS: HEMOGLOBIN 6.7 g/dL (13.5-17.5)
[2018-05-22] MEDS ORDERED: ETOMIDATE 2 MG/ML VIAL ONE (08:29)
[2018-05-22] MEDS: PANTOPRAZOLE 40 MG VIAL IV SCH (09:47)
[2018-05-22] MEDS: CEFEPIME 1 GM in IV D5W 50 ML IV SCH ×2 (09:47→19:11)
[2018-05-22] MEDS: LACTOBACILLUS RHAMNOSUS GG 1 EACH CAP.SPRINK PO SCH ×2 (09:47→17:23)
[2018-05-22] MEDS: NICOTINE PATCH (14MG) 14 MG PATCH.TD24 TD SCH (09:47)
[2018-05-22] MEDS: Z GUARD REMEDY 4 OZ OINT TP SCH ×2 (09:48→21:08)
[2018-05-22] MEDS: DAKINS HALF STRENGTH (0.25%) 480 ML BOTTLE TOP SCH (09:48)
[2018-05-22] MEDS: DAKINS QUARTER STRENGTH (0.125%) 480 ML BOTTLE TOP SCH (09:56)
[2018-05-22] MEDS: PROSOURCE / PROSTAT (PYXIS) 30 ML UDC GT SCH ×2 (09:56→17:23)
[2018-05-22 10:00] LABS: EOSINOPHILS % (MANUAL) 3 % (0-4); LYMPHOCYTES % (MANUAL) 6 % (16-48); MONOCYTES % (MANUAL) 3 % (0-11.0); NEUTROPHILS % (MANUAL) 88 (42-76)
[2018-05-22] MEDS: POTASSIUM CL. PREMIX PERIPHER. 50 ML IV SCH ×8 (10:47→22:20)
[2018-05-22] MEDS ORDERED: MAGNESIUM OXIDE 400 MG TABLET PO ONE (11:30)
--- NOTE | 2018-05-22 11:30 | NUR ---
MS/RN NOTE GROCERY BUYER GONSALEZ IS MADE AWARE OF MAGNESIUM LEVEL OF 1.6. RECEIVED NEW ORDER OF MAGNESIUM OXIDE 400 MG PO X1. THE ORDER IS READ BACK, VERIFIED. NOTED AND CARRIED OUT.
--- NOTE | 2018-05-22 12:39 | NUR ---
MS/RN NOTE BLOOD SUGAR IS 84. NO COVERAGE GIVEN. THE PATIENT HAVING LUNCH.
--- NOTE | 2018-05-22 17:20 | NUR ---
MS/RN NOTE CLEAR LIQUID DIET TOLERATED WELL DURING LUNCH. RECEIVED FULL LIQUID DIET ORDER FROM HECTOR GONSALEZ FOR 05/22/18 DINNER. NOTED AND CARRIED OUT.
--- NOTE | 2018-05-22 17:51 | NUR ---
MS/RN NOTE BLOOD TRANSFUSION ENDED AT 1750. NO REACTIONS NOTED WITH BLOOD TRANSFUSION. BLOOD PRESSURE 94/61, PULSE 78, R 18 AND TEMP 98.0, PAIN 0/10. DURING CHARTING 175 VITAL SIGN ENTERED WRONG PULSE (TYPO) INSTEAD OF 78 ENTERED 18.
--- NOTE | 2018-05-22 18:25 | NUR ---
MS/RN NOTE POTASSIUM DOSES DUE AT 1300 AND 1400 GETTING BEHIND ON ADMINISTRATION TIME BECAUSE THE PATIENT HAD EGD IN AM AND BLOOD TRANSFUSION LATER. IN ORDER NOT TO MISS THE DOSES THE TWO DOSES ARE RESCHEDULED FOR LATER TONIGHT PER COMMUTER TRAIN OPERATOR SUNSHINE AND PHARMACY PRICILLA IS MADE AWARE. ALSO, POTASSIUM LAB DUE AT 1800 WILL BE DONE AFTER THE ADMINISTRATION OF 2 DOSES TONIGHT. LAB IS MADE AWARE. LAB WILL CALL AT 2200 TO COME AND MALDONADO THE BLOOD DRAW FOR POTASSIUM CHECK.
--- NOTE | 2018-05-22 18:28 | NUR ---
MS/RN NOTE HCT/HGT CHECK 15 MIN AFTER TRANSFUSION NOT DONE YET DUE TO PATIENT BEING HARD STICK. PER CENTRIFUGAL SPINNER ANOTHER ACID MIXER WILL COME TO DRAW BLOOD. CANVAS WORKER APPRENTICE WILL BE ENDORSED.
[2018-05-22] MEDS: IV D5W 1,000 ML IV PRN (18:38)
[2018-05-22] MEDS: FLUCONAZOLE (100 MG) 100 MG TABLET PO SCH (18:38)
--- NOTE | 2018-05-22 19:35 | NUR ---
RN OPENING NOTES RECEIVED REPORT FROM DAYSHIFT RN. FOUND Pt AWAKE RESTING IN BED. WATCHING TV. NO S/S OF ACUTE DISTRESS OR SOB NOTED. RESPIRATIONS EVEN AND UNLABORED. DUFF CATH IN PLACE, DRAINING WELL. IV ACCESS ON ARON MIDLINE; IVF D5W @125ML/HR, INFUSING WELL. SAFETY MEASURES IN PLACE. BED LOW, LOCKED, HOB ELEVATED, SIDE RAILS UP, CALL LIGHT AND BEDSIDE TABLE WITHIN REACH. WILL CONTINUE TO MONITOR Pt's CONDITION AND SAFETY THROUGHOUT THE NIGHT.
[2018-05-22] MEDS ORDERED: POTASSIUM CHLORIDE 10 MEQ/50 ML PREMIXED IVPB FOR PERIPHERAL LINE IV ONE ×2 (20:00→21:00)
[2018-05-23] VITALS (8 sets, daily range): BP systolic 96–141; BP diastolic 60–88
[2018-05-23] MEDS: CEFEPIME 1 GM in IV D5W 50 ML IV SCH ×3 (02:29→17:08)
[2018-05-23] MEDS: HYDROMORPHONE 1 MG/1 ML DISP.SYRIN IV PRN ×5 (04:37→21:42)
[2018-05-23] MEDS: METRONIDAZOLE 500 MG TABLET PO SCH ×3 (04:37→21:43)
[2018-05-23] MEDS: BLOOD SUGAR DIAGNOSTIC 1 EACH STRIP IN SCH ×3 (06:00→17:03)
--- NOTE | 2018-05-23 07:00 | NUR ---
RN NOTES AC ACCUCHECK BG 94. NO INSULIN COVERAGE NEEDED AT THIS TIME.
--- NOTE | 2018-05-23 07:35 | NUR ---
RN CLOSING NOTES NO SIGNIFICANT CHANGES IN Pt's CONDITION. Pt REMAINS STABLE PER BASELINE. ALL NEEDS MET AND ATTENDED TO. NO S/S OF ACUTE DISTRESS OR SOB NOTED DURING THE NIGHT. SAFETY MEASURES IN PLACE. WILL ENDORSE TO DAYSHIFT RN FOR Pt's SRINIVASA.
--- NOTE | 2018-05-23 07:50 | NUR ---
ms rn received on bed, awake,alert,oriented x2,not in any form of distress, respirations even and unlabored,no sob noted, lungs are diminished,abdoemn soft,positive bowel sounds,denies pain at this itme,all needs attended.
[2018-05-23 08:04] LABS: BASOPHILS # (AUTO) 0.3 /CMM (0.0-0.2); EOSINOPHILS % (AUTO) 3.9 % (0.0-6.0); HEMATOCRIT 21 % (39-51); LYMPHOCYTES # (AUTO) 1.5 /CMM (0.8-4.8); LYMPHOCYTES % (AUTO) 14.8 % (20.0-44.0); MEAN CORPUSCULAR HGB CONC 33 g/dl (31.0-36.0); MEAN CORPUSCULAR VOLUME 82 fL (80-96); MONOCYTES # (AUTO) 0.6 /CMM (0.1-1.30); MONOCYTES % (AUTO) 6.2 % (2.0-12.0); NEUTROPHILS # (AUTO) 7.2 /CMM (1.8-8.9); NEUTROPHILS % (AUTO) 72.1 % (43.0-81.0); PLATELET COUNT (AUTO) 208 /CMM (150-450); RED BLOOD CELL COUNT(AUTO) 2.55 MIL/uL (4.5-6.0); WHITE BLOOD COUNT (AUTO) 10.1 K/uL (4.3-11.0)
[2018-05-23 08:11] LABS: HEMOGLOBIN 6.9 g/dL (13.5-17.5)
[2018-05-23 08:24] LABS: CALCIUM, SERUM 7.2 mg/dL (8.5-10.1); CREATININE 0.9 mg/dL (0.6-1.3)
[2018-05-23 09:00] LABS: EOSINOPHILS % (MANUAL) 3 % (0-4); LYMPHOCYTES % (MANUAL) 17 % (16-48); MONOCYTES % (MANUAL) 2 % (0-11.0); NEUTROPHILS % (MANUAL) 78 (42-76)
[2018-05-23] MEDS: DAKINS QUARTER STRENGTH (0.125%) 480 ML BOTTLE TOP SCH (09:00)
[2018-05-23] MEDS: PANTOPRAZOLE 40 MG VIAL IV SCH (09:05)
[2018-05-23] MEDS: FLUCONAZOLE (100 MG) 100 MG TABLET PO SCH (09:05)
[2018-05-23] MEDS: NICOTINE PATCH (14MG) 14 MG PATCH.TD24 TD SCH (09:05)
[2018-05-23] MEDS: LACTOBACILLUS RHAMNOSUS GG 1 EACH CAP.SPRINK PO SCH ×2 (09:05→17:03)
[2018-05-23] MEDS: Z GUARD REMEDY 4 OZ OINT TP SCH ×2 (09:13→21:44)
[2018-05-23] MEDS: DAKINS HALF STRENGTH (0.25%) 480 ML BOTTLE TOP SCH (09:13)
[2018-05-23] MEDS: PROSOURCE / PROSTAT (PYXIS) 30 ML UDC GT SCH ×2 (09:17→17:08)
--- NOTE | 2018-05-23 09:20 | NUR ---
ms garg breakfast served,due meds given,tolerated well.
[2018-05-23] MEDS: POTASSIUM CHLORIDE 20 MEQ TAB.PRT.SR PO SCH ×3 (11:41→17:02)
--- NOTE | 2018-05-23 12:00 | NUR ---
ms rn patient refused blood sugar check.
[2018-05-23] MEDS: IV D5W 1,000 ML IV PRN (14:37)
--- NOTE | 2018-05-23 16:00 | NUR ---
ms rn refused to chage dressing at sacral area,no distress noted.dressing to bilateraL FEET CHANGED.
[2018-05-23] MEDS ORDERED: NA PHOS,M-B/NA PHOS,DI-BA 1 EA ENEMA RC PRN (17:00)
[2018-05-23] MEDS ORDERED: PEG 3350/NA SULF,BICARB,CL/KCL 4,000 ML BOTTLE PO ONE (17:00)
[2018-05-23] MEDS ORDERED: MAGNESIUM CITRATE 296 ML BOTTLE PO ONE (17:00)
[2018-05-23] MEDS ORDERED: HYDROMORPHONE INJ 2 MG/ML DISP.SYRIN ONE (20:56)
[2018-05-24] VITALS (8 sets, daily range): BP systolic 104–112; BP diastolic 58–74
[2018-05-24] MEDS: BLOOD SUGAR DIAGNOSTIC 1 EACH STRIP IN SCH ×5 (00:37→23:24)
[2018-05-24] MEDS ORDERED: HYDROMORPHONE INJ 2 MG/ML DISP.SYRIN ONE ×2 (01:47→05:21)
[2018-05-24] MEDS: HYDROMORPHONE 1 MG/1 ML DISP.SYRIN IV PRN ×2 (01:48→05:30)
[2018-05-24] MEDS: CEFEPIME 1 GM in IV D5W 50 ML IV SCH ×3 (01:49→17:32)
--- NOTE | 2018-05-24 02:26 | NUR ---
1 UNIT PRBC DONE, NO S/S OF SIDE EFFECTS NOTED. VS STABLE NOTED.
[2018-05-24] MEDS: IV D5W 1,000 ML IV PRN ×2 (04:29→17:45)
[2018-05-24] MEDS: METRONIDAZOLE 500 MG TABLET PO SCH ×2 (04:32→12:09)
--- NOTE | 2018-05-24 06:35 | NUR ---
PT REFUSE DRINKING GOLYTELY, PT ENCOURAGE TO DRINK DURING THE NIGHT BUT PT REFUSED STATED HE DOESNT LIKE THE DRINK , PT ABLE TO DRINK ONLY WATER.
--- NOTE | 2018-05-24 07:27 | NUR ---
MS RN OPENING NOTES RECEIVED PT LAYING IN BED WITH HOB SLIGHTLY ELEVATED. PT IS AWAKE AND ALERT. RESPIRATIONS ARE EVEN AND UNLABORED, NOT IN ANY ACUTE DISTRESS NOTED. PUPILS ARE REACTIVE TO LIGHT, BILATERAL HAND MAIL RIDER ARE STRONG AND EQUAL. DENIES ANY PAIN AT THIS TIME, NO C/O SOB, N/V. PT MADE AWARE OF TIME OF EGD. PT STATES THAT HE DOES NOT WANT TO DRINK GOLYTELY. EXPLAINED THE IMPORTANCE OF DRINKING GOLYTELY AND EGD. PT STATED "I JUST DONT WANT TO DRINK IT." MIDLINE NOTED TO ARON, INTACT, NO INFILTRATION NOTED. DRESSING KEPT CLEAN AND DRY. FLUIDS RUNNING AT 125ML/HR, TOLERATING WELL. SAFETY MEASURES ARE IN PLACE. INSTRUCTED PT TO USE CALL LIGHT WHEN ASSISTANCE IS NEEDED, CALL LIGHT IS LEFT WITHIN REACH. WILL MONITOR PT THROUGHOUT SHIFT FOR CONTINUITY OF CARE.
--- NOTE | 2018-05-24 07:36 | NUR ---
MS RN NOTES--PER BODY SERVICE TEAM MEMBER, "HE IS A HARD STICK. I WILL SEND SOMEONE AT 8:30."
[2018-05-24] MEDS: LACTOBACILLUS RHAMNOSUS GG 1 EACH CAP.SPRINK PO SCH ×2 (08:31→17:32)
[2018-05-24] MEDS: NICOTINE PATCH (14MG) 14 MG PATCH.TD24 TD SCH (08:31)
[2018-05-24] MEDS: FERROUS SULFATE (325 MG) 325 MG/TAB TABLET PO SCH ×2 (08:31→17:32)
[2018-05-24] MEDS: PANTOPRAZOLE 40 MG VIAL IV SCH (08:31)
[2018-05-24] MEDS: PROSOURCE / PROSTAT (PYXIS) 30 ML UDC GT SCH ×2 (08:32→17:33)
[2018-05-24] MEDS: Z GUARD REMEDY 4 OZ OINT TP SCH ×2 (08:33→21:08)
[2018-05-24] MEDS: HYDROMORPHONE INJ 2 MG/ML DISP.SYRIN IV PRN ×3 (10:30→22:36)
--- NOTE | 2018-05-24 12:01 | NUR ---
MS RN NOTES-- CROSS TIE TURNER CAME AND STATED "PATIENT WANTS ME TO COME BACK BECAUSE HE NEEDS TO BE CHANGED. NEXT SHIFT WILL HAVE TO COME BACK AROUND 1330."
[2018-05-24] MEDS: DAKINS QUARTER STRENGTH (0.125%) 480 ML BOTTLE TOP SCH (12:04)
--- NOTE | 2018-05-24 13:02 | NUR ---
MS RN NOTES-- HECTOR DILL MADE AWARE OF PT NOT DRINKING GOLYTELY AND NOT HAVING A BM. PER FUENTES, WILL RESCHEDULE TOMORROW.
[2018-05-24] MEDS: FLUCONAZOLE (100 MG) 100 MG TABLET PO SCH (17:34)
--- NOTE | 2018-05-24 19:40 | NUR ---
MS RN NOTE RECEIVED PT LAYING IN BED WITH HOB ELEVATED. PT IS AWAKE AND ALERT. C/O9 OF SLIGHT DISCOMFORT, REFUSED TYLENOL PRN. RESPIRATIONS ARE EVEN AND UNLABORED, NOT IN ANY ACUTE DISTRESS NOTED. PUPILS ARE REACTIVE TO LIGHT. NO C/O SOB/, N/V/ CHEST DWYER. MIDLINE NOTED ON ARON, INTACT. DRESSING KEPT CLEAN AND DRY. FLUIDS RUNNING AT 125ML/HR, TOLERATING WELL. SAFETY MEASURES ARE IN PLACE, SIDE RAILS UP X 2, BED IN LOWEST LOCKED POSITION. INSTRUCTED PT TO USE CALL LIGHT WHEN ASSISTANCE IS NEEDED, CALL LIGHT IS LEFT WITHIN REACH. WILL MONITOR PT THROUGHOUT SHIFT FOR CONTINUITY OF CARE. Addendum: 05/24/18 at 1954 by WES SCHULTZ RN PT REQUESTS FOR DEMEROL. NOTIFIED OF PATIENT REQUEST. AWAITING ORDER.
--- NOTE | 2018-05-24 19:48 | NUR ---
MS RN OPENING NOTES ALL DUE MEDS GIVEN, NEEDS MET AND RENDERED. PT IS AWAKE AND ALERT. RESPIRATIONS ARE EVEN AND UNLABORED, NOT IN ANY ACUTE DISTRESS NOTED. DENIES ANY PAIN AT THIS TIME, NO C/O SOB, N/V. MIDLINE NOTED TO ARON, INTACT, NO INFILTRATION NOTED. DRESSING KEPT CLEAN AND DRY. FLUIDS RUNNING AT 125ML/HR, TOLERATING WELL. SAFETY MEASURES ARE IN PLACE. REMINDED PT TO USE CALL LIGHT WHEN ASSISTANCE IS NEEDED, CALL LIGHT IS LEFT WITHIN REACH. ENDORSED TO NEXT SHIFT FOR CONTINUITY OF CARE. Addendum: 05/24/18 at 1949 by JUNIOR BROWNING RN CORRECTION-- CLOSING NOTES
[2018-05-25] VITALS (8 sets, daily range): BP systolic 89–110; BP diastolic 59–89
--- NOTE | 2018-05-25 | NUR ---
MS RN NOTE PATIENT BP LOW, PATIENT AAOX4, PATIENT ASYMPTOMATIC. PATIENT ENCOURAGED TO DRINK CLEAR MORE CLEAR LIQUIDS AND FEEL ELEVATED. RN WILL CONTINUE TO MONITOR
--- NOTE | 2018-05-25 00:59 | NUR ---
MS RN NOTE MD CALLED TO INFORM RN THAT COLONOSCOPY WILL BE MOVED TO TUESDAY. D/C NPO PER MD ORDER.
[2018-05-25] MEDS: CEFEPIME 1 GM in IV D5W 50 ML IV SCH ×3 (01:18→17:54)
[2018-05-25] MEDS: HYDROMORPHONE INJ 2 MG/ML DISP.SYRIN IV PRN ×6 (03:07→21:55)
[2018-05-25] MEDS: IV D5W 1,000 ML IV PRN (03:48)
[2018-05-25] MEDS: BLOOD SUGAR DIAGNOSTIC 1 EACH STRIP IN SCH ×3 (06:02→17:54)
--- NOTE | 2018-05-25 06:31 | NUR ---
MS RN NOTE PATIENT TOLERATED THE NIGHT WELL. NO ACUTE CHANGES AT THIS TIME. PATIENT REFUSED HYGIENE CARE THROUGHOUT THE NIGHT. WANTS IT AFTER BREAKFAST. PATIENT DENIES CHEST PAIN.SOB/. NO S/S OF DISTRESS. PAIN MANAGED THROUGHOUT THE NIGHT. WILL ENDORSE TO AM FOR SRINIVASA. BED IN LOWEST LOCKED POSITION, SIDE RAILS UP X 2, CALL LIGHT IN LEFT HAND. CARE GIVEN ORDERED.
[2018-05-25 07:16] LABS: BASOPHILS # (AUTO) 0.1 /CMM (0.0-0.2); BASOPHILS % (AUTO) 0.9 % (0.0-2.0); EOSINOPHILS % (AUTO) 1.9 % (0.0-6.0); HEMATOCRIT 29 % (39-51); HEMOGLOBIN 9.6 g/dL (13.5-17.5); LYMPHOCYTES # (AUTO) 1.3 /CMM (0.8-4.8); LYMPHOCYTES % (AUTO) 12.3 % (20.0-44.0); MEAN CORPUSCULAR HGB CONC 33 g/dl (31.0-36.0); MEAN CORPUSCULAR VOLUME 83 fL (80-96); MONOCYTES # (AUTO) 0.8 /CMM (0.1-1.30); NEUTROPHILS # (AUTO) 8.4 /CMM (1.8-8.9); NEUTROPHILS % (AUTO) 77.9 % (43.0-81.0); PLATELET COUNT (AUTO) 227 /CMM (150-450); RED BLOOD CELL COUNT(AUTO) 3.47 MIL/uL (4.5-6.0); WHITE BLOOD COUNT (AUTO) 10.8 K/uL (4.3-11.0)
[2018-05-25 07:30] LABS: CALCIUM, SERUM 7.4 mg/dL (8.5-10.1); MAGNESIUM 1.6 mg/dL (1.8-2.4); PHOSPHORUS 3.2 mg/dL (2.5-4.9)
[2018-05-25] MEDS: PROSOURCE / PROSTAT (PYXIS) 30 ML UDC GT SCH ×2 (09:00→17:30)
[2018-05-25] MEDS: NICOTINE PATCH (14MG) 14 MG PATCH.TD24 TD SCH (09:38)
[2018-05-25] MEDS: Z GUARD REMEDY 4 OZ OINT TP SCH ×2 (09:38→21:44)
[2018-05-25] MEDS: LACTOBACILLUS RHAMNOSUS GG 1 EACH CAP.SPRINK PO SCH ×2 (09:38→17:30)
[2018-05-25] MEDS: FERROUS SULFATE (325 MG) 325 MG/TAB TABLET PO SCH ×2 (09:38→17:31)
[2018-05-25] MEDS: DAKINS QUARTER STRENGTH (0.125%) 480 ML BOTTLE TOP SCH (09:38)
[2018-05-25] MEDS: PANTOPRAZOLE 40 MG VIAL IV SCH (09:38)
[2018-05-25] MEDS ORDERED: POTASSIUM CHLORIDE 20 MEQ POWDER PACKET PO SCH (10:30)
[2018-05-25] MEDS: Magnesium 1GM/D5W 100ML PREMIX 100 ML IV SCH ×2 (11:55→12:08)
[2018-05-25] MEDS ORDERED: POTASSIUM CHLORIDE 20 MEQ TAB.PRT.SR PO ONE (12:30)
--- NOTE | 2018-05-25 18:13 | NUR ---
nursing notes patient signed consent for procedure tomorrow. Consent placed in the chart. Patient informed to be NPO by midnight and to drink all of the golytely pt verbalized understanding. will endorse this to next shift nurse.
--- NOTE | 2018-05-25 22:00 | NUR ---
RN NOTE NOTED THAT PATIENT IS NOT DRINKING GOLYTELY OR TAKE LITTLE SIPS, EXPLAINED ALL RISKS AND BENEFITS, PATIENT IS ALERT/ORIENTED X4, VERBALIZED UNDERSTANDING, WILL CONTINUE TO ENCOURAGE PATIENT TO DRINK GOLYTELY
--- NOTE | 2018-05-26 | NUR ---
RN NOTE PATIENT DOES VERY LITTLE ATTEMPT TO DRINK GOLYTELY, AGAIN EXPLAINED ALL RISKS AND BENEFITS, EXPRESSED UNDERSTANDING, HOWEVER STILL CONTINUE MAKE JUST LITTLE SIPS, NOTIFIED CHARGE NURSE, MD IS AWARE
[2018-05-26] MEDS: BLOOD SUGAR DIAGNOSTIC 1 EACH STRIP IN SCH ×5 (00:14→23:19)
[2018-05-26] MEDS: CEFEPIME 1 GM in IV D5W 50 ML IV SCH ×2 (01:23→10:33)
[2018-05-26] MEDS: IV D5W 1,000 ML IV PRN ×2 (01:32→15:32)
[2018-05-26] MEDS: HYDROMORPHONE INJ 2 MG/ML DISP.SYRIN IV PRN ×5 (02:11→21:35)
[2018-05-26 04:00] VITALS: BP 97/65
--- NOTE | 2018-05-26 06:10 | NUR ---
RN NOTE PATIENT WAS NOT VERY COMPLIANT WITH MEDICATION GOLYTELY DESPITE EXPLAINING OF RISKS AND BENEFITS, HOWEVER, PATIENT WAS ABLE TO FINISH MORE THAN HALF OF THE GOLYTELY, PATIENT HAD 2 BOWEL MOVEMENT, CLEAR CONSISTENCY, CHARGE NURSE ELISE IS AWARE, CALLED HECTOR HUANG, AWAITING TO CALL BACK, WILL ENDORSE TO AM SHIFT TO FOLLOW UP
[2018-05-26 07:37] LABS: BASOPHILS # (AUTO) 0.1 /CMM (0.0-0.2); BASOPHILS % (AUTO) 0.9 % (0.0-2.0); HEMATOCRIT 24 % (39-51); HEMOGLOBIN 8.1 g/dL (13.5-17.5); LYMPHOCYTES # (AUTO) 1.6 /CMM (0.8-4.8); LYMPHOCYTES % (AUTO) 14.7 % (20.0-44.0); MEAN CORPUSCULAR HGB CONC 33 g/dl (31.0-36.0); MEAN CORPUSCULAR VOLUME 83 fL (80-96); MONOCYTES # (AUTO) 1.2 /CMM (0.1-1.30); NEUTROPHILS # (AUTO) 7.9 /CMM (1.8-8.9); NEUTROPHILS % (AUTO) 71.4 % (43.0-81.0); PLATELET COUNT (AUTO) 227 /CMM (150-450); RED BLOOD CELL COUNT(AUTO) 2.95 MIL/uL (4.5-6.0); WHITE BLOOD COUNT (AUTO) 11.1 K/uL (4.3-11.0)
[2018-05-26 07:45] LABS: CALCIUM, SERUM 7.6 mg/dL (8.5-10.1); CREATININE 0.9 mg/dL (0.6-1.3); MAGNESIUM 1.9 mg/dL (1.8-2.4); PHOSPHORUS 3.2 mg/dL (2.5-4.9); POTASSIUM 3.9 mmol/L (3.5-5.1)
[2018-05-26 08:00] VITALS: BP 101/65
[2018-05-26] MEDS: FERROUS SULFATE (325 MG) 325 MG/TAB TABLET PO SCH ×2 (09:45→17:44)
[2018-05-26] MEDS: Z GUARD REMEDY 4 OZ OINT TP SCH ×2 (09:45→21:34)
[2018-05-26] MEDS: DAKINS QUARTER STRENGTH (0.125%) 480 ML BOTTLE TOP SCH (09:45)
[2018-05-26] MEDS: LACTOBACILLUS RHAMNOSUS GG 1 EACH CAP.SPRINK PO SCH ×2 (09:46→17:44)
[2018-05-26] MEDS: NICOTINE PATCH (14MG) 14 MG PATCH.TD24 TD SCH (09:46)
[2018-05-26] MEDS: PANTOPRAZOLE 40 MG VIAL IV SCH (10:33)
[2018-05-26] MEDS: PROSOURCE / PROSTAT (PYXIS) 30 ML UDC GT SCH ×2 (10:35→17:00)
[2018-05-26 12:00] VITALS: BP 101/65
--- NOTE | 2018-05-26 14:15 | NUR ---
PT WENT FOR COLONOSCOPY AT 1300
[2018-05-26] MEDS ORDERED: METHYLENE BLUE 10 ML VIAL ONE (14:33)
[2018-05-26 16:00] VITALS: BP 83/50
[2018-05-26] MEDS ORDERED: CEFEPIME 2 GM in IV D5W 100 ML IV SCH (18:00)
--- NOTE | 2018-05-26 18:57 | NUR ---
SUMMARY \PT REMAINS SAFE ALL SHIFT WENT FOR COLONOSCOPY TODAY REPORT IN CHART SAMPLE SENT FOR TESTING. TEXTED MD MANDY YLONS TO SEE IF PT CAN EAT.
[2018-05-26 20:00] VITALS: BP 101/76
--- NOTE | 2018-05-26 20:50 | NUR ---
RN NOTE PER DR JOEY AZEVEDO DC IV D5W AT 125 ML/HR, CONTINUE DIET TOLERATED
[2018-05-26] MEDS: AMOX/CLAVULANATE 875 MG TABLET PO SCH (21:34)
[2018-05-27] MEDS: HYDROMORPHONE INJ 2 MG/ML DISP.SYRIN IV PRN ×5 (01:48→20:04)
[2018-05-27 04:00] VITALS: BP 96/60
[2018-05-27] MEDS: BLOOD SUGAR DIAGNOSTIC 1 EACH STRIP IN SCH ×4 (05:53→23:39)
--- NOTE | 2018-05-27 07:47 | NUR ---
MS RN OPENING NOTE RECEIVED PATIENT IN BED. ALERT ORIENTED X3. ON ROOM AIR, TOLERATING WELL. IN NO APPARENT DISTRESS OR DISCOMFORT AT THIS TIME. RESPIRATIONS EVEN AND UNLABORED. DENIES PAIN AND SOB. PATIENT IS ABLE TO COMMUNICATE NEEDS. LEFT ARM NON-PITTING EDEMA OBSERVED. PATIENT WITH LEFT UPPER ARM MIDLINE , PATENT AND INTACT, NO FLUID RUNNING AT THIS TIME. USES URINAL FOR ELIMINATION. PATIENT KEPT CLEAN AND COMFORTABLE, ALL NEEDS ATTENDED, SAFETY MEASURES IN PLACE, BED IN LOW LOCKED POSITION, SIDE RAILS UP X2, CALL LIGHT WITHIN EASY REACH, WILL CONTINUE TO MONITOR.
[2018-05-27 08:00] VITALS: BP 114/74
[2018-05-27] MEDS: LACTOBACILLUS RHAMNOSUS GG 1 EACH CAP.SPRINK PO SCH ×2 (08:46→16:23)
[2018-05-27] MEDS: FERROUS SULFATE (325 MG) 325 MG/TAB TABLET PO SCH ×2 (08:46→16:23)
[2018-05-27] MEDS: NICOTINE PATCH (14MG) 14 MG PATCH.TD24 TD SCH (08:46)
[2018-05-27] MEDS: AMOX/CLAVULANATE 875 MG TABLET PO SCH ×2 (08:46→20:06)
[2018-05-27] MEDS: PANTOPRAZOLE 40 MG VIAL IV SCH (08:46)
[2018-05-27] MEDS: DAKINS QUARTER STRENGTH (0.125%) 480 ML BOTTLE TOP SCH (08:57)
[2018-05-27] MEDS: Z GUARD REMEDY 4 OZ OINT TP SCH ×2 (08:57→20:06)
[2018-05-27] MEDS: PROSOURCE / PROSTAT (PYXIS) 30 ML UDC GT SCH ×2 (08:59→16:23)
--- NOTE | 2018-05-27 14:00 | NUR ---
PATIENT'S BLADDER WAS SCANNED PER ORDER AFTER 8 HOURS OF REMOVING THE DUFF CATHETER. FIRST READING WAS 304 ML/ PATIENT WAS ABLE TO URINATE AND EMPTY THE BLADDER, SECOND SCAN RIGHT AFTER VOIDING SHOWED 0 ML OF URINE IN THE BLADDER. PATIENT HAD 300 ML OF GREEN CLEAR OUTPUT IN THE URINAL. WILL CONTINUE TO MONITOR AT THIS TIME.
[2018-05-27 16:00] VITALS: BP 93/60
--- NOTE | 2018-05-27 19:00 | NUR ---
MS RN CLOSING NOTE PATIENT IN BED. ALERT ORIENTED X3. ON ROOM AIR, TOLERATING WELL. IN NO APPARENT DISTRESS OR DISCOMFORT AT THIS TIME. RESPIRATIONS EVEN AND UNLABORED. DENIES PAIN AND SOB. PATIENT IS ABLE TO COMMUNICATE NEEDS. LEFT ARM +4 PITTING EDEMA OBSERVED. PATIENT WITH LEFT UPPER ARM MIDLINE , PATENT AND INTACT, NO FLUID RUNNING AT THIS TIME. USES URINAL FOR ELIMINATION. PATIENT KEPT CLEAN AND COMFORTABLE, ALL NEEDS ATTENDED, SAFETY MEASURES IN PLACE, BED IN LOW LOCKED POSITION, SIDE RAILS UP X2, CALL LIGHT WITHIN EASY REACH, WILL ENDORSE TO PM NURSE FOR SRINIVASA.
--- NOTE | 2018-05-27 19:15 | NUR ---
MS RN OPENING NOTE RECEIVED PATIENT IN BED. ALERT ORIENTED X3. ON ROOM AIR, TOLERATING WELL. RESPIRATIONS EVEN AND UNLABORED. PATIENT IS ABLE TO COMMUNICATE NEEDS. LEFT ARM NON-PITTING EDEMA OBSERVED. PATIENT WITH LEFT UPPER ARM MIDLINE , PATENT AND INTACT, NO FLUID RUNNING AT THIS TIME. USES URINAL FOR ELIMINATION. SAFETY MEASURES IN PLACE, BED IN LOW LOCKED POSITION, SIDE RAILS UP X2, CALL LIGHT WITHIN EASY REACH, WILL CONTINUE TO MONITOR ACCORDINGLY.
[2018-05-27 20:00] VITALS: BP 103/48
--- NOTE | 2018-05-27 21:20 | NUR ---
RN NOTES PER AM RN REPORT, PATIENT REFUSED LAB DRAW DURING THE DAY, UNABLE TO DRAW BLOOD FROM MIDLINE. LEAD MINER CAME BUT UNABLE TO GET BLOODS. PATIENT ONLY ALLOWED HER TO POKE HIM ONCE. CHARGE NURSE AWARE.
--- NOTE | 2018-05-27 22:00 | NUR ---
RN NOTES PATIENT'S BLADDER WAS SCANNED PER ORDER. PATIENT HAS BEEN URINATING. READING SHOWED 0 ML OF URINE IN THE BLADDER. PATIENT HAD 400ML OF GREEN CLEAR OUTPUT IN THE URINAL. WILL CONTINUE TO MONITOR ACCORDINGLY.
[2018-05-27] MEDS: INSULIN REGULAR, HUMAN 100 UNIT/ML 3 ML VIAL SQ PRN (23:40)
[2018-05-28] MEDS: HYDROMORPHONE INJ 2 MG/ML DISP.SYRIN IV PRN ×6 (00:26→20:07)
--- NOTE | 2018-05-28 00:28 | NUR ---
RN NOTES PATIENT C/O PAIN IN RIGHT WRIST, LEFT ARM AND UPPER BACK, PAIN SCALE 9/10. DILAUDID 0.5MG GIVEN ORDERED.
[2018-05-28 04:30] VITALS: BP 115/74
--- NOTE | 2018-05-28 04:35 | NUR ---
RN NOTES PATIENT C/O PAIN IN RIGHT WRIST, LEFT ARM AND UPPER BACK, PAIN SCALE 9/10. BP CHECKED- 115/74MMHG. DILAUDID 0.5MG GIVEN ORDERED.
[2018-05-28] MEDS: INSULIN REGULAR, HUMAN 100 UNIT/ML 3 ML VIAL SQ PRN (05:35)
[2018-05-28] MEDS: BLOOD SUGAR DIAGNOSTIC 1 EACH STRIP IN SCH ×4 (05:35→23:50)
--- NOTE | 2018-05-28 07:00 | NUR ---
MS RN CLOSING NOTE PATIENT IN BED. ALERT ORIENTED X3. ON ROOM AIR, TOLERATING WELL. IN NO APPARENT DISTRESS OR DISCOMFORT AT THIS TIME. RESPIRATIONS EVEN AND UNLABORED. PATIENT IS ABLE TO COMMUNICATE NEEDS. LEFT ARM +4 PITTING EDEMA OBSERVED. PATIENT WITH LEFT UPPER ARM MIDLINE , PATENT AND INTACT, NO FLUID RUNNING AT THIS TIME. USES URINAL FOR ELIMINATION. PATIENT KEPT CLEAN AND COMFORTABLE, ALL NEEDS ATTENDED TO. ALL DUE MEDICATIONS GIVEN ORDERED. SAFETY MEASURES IN PLACE, BED IN LOW LOCKED POSITION, SIDE RAILS UP X2, CALL LIGHT WITHIN EASY REACH. WILL ENDORSE SRINIVASA TO ONCOMING RN
--- NOTE | 2018-05-28 07:30 | NUR ---
RN MS NOTES PT IN BED, AWAKE, ALERT AND ORIENTED, NO COMPLAINT AT THIS TIME, RESPIRATIONS NORMAL AND NOT LABORED, CALL LIGHT WITHIN REACH, NEEDS ATTENDED.
[2018-05-28 08:00] VITALS: BP 115/65
[2018-05-28] MEDS: PROSOURCE / PROSTAT (PYXIS) 30 ML UDC GT SCH ×3 (08:39→17:32)
[2018-05-28] MEDS: PANTOPRAZOLE 40 MG VIAL IV SCH (08:39)
[2018-05-28] MEDS: LACTOBACILLUS RHAMNOSUS GG 1 EACH CAP.SPRINK PO SCH ×3 (08:39→17:32)
[2018-05-28] MEDS: FERROUS SULFATE (325 MG) 325 MG/TAB TABLET PO SCH ×3 (08:39→17:32)
[2018-05-28] MEDS: AMOX/CLAVULANATE 875 MG TABLET PO SCH ×2 (08:39→20:07)
[2018-05-28] MEDS: NICOTINE PATCH (14MG) 14 MG PATCH.TD24 TD SCH (08:40)
[2018-05-28] MEDS: Z GUARD REMEDY 4 OZ OINT TP SCH ×2 (08:47→20:08)
[2018-05-28] MEDS: DAKINS QUARTER STRENGTH (0.125%) 480 ML BOTTLE TOP SCH (08:47)
--- NOTE | 2018-05-28 12:30 | NUR ---
RN MS NOTES PT IN BED, AWAKE, ALERT AND ORIENTED, PAIN MEDICATION GIVEN FOR PAIN MANAGEMENT, NOT IN DISTRESS, CALL LIGHT WITHIN REACH, NEEDS ATTENDED.
--- NOTE | 2018-05-28 16:30 | NUR ---
RN MS NOTES LAB CAME TO TRY AND DRAW BLOOD, PT REQUESTED FOR THEM TO COME BACK AFTER HE GOT HIS PAIN MED, LAB CAME BACK BUT UNABLE TO DRAW BLOOD, PT HARDSTICK, PT REFUSED FOR LAB TO TRY AGAIN, DR. SABA INFORMED.
--- NOTE | 2018-05-28 18:02 | NUR ---
RN MS NOTES PT IN BED, AWAKE, ALERT AND ORIENTED, ASKING FOR PAIN MEDICATION, PAIN MED NOT DUE YET, INFORMED, PER DR. SABA, NO MORE NARCOTICS, ENCOURAGED INCREASED PO INTAKE, SEEN BY DR. JEFFREY AND BASIM SELF PAY COLLECTOR, ASSISTED WITH ADL'S, NEEDS ATTENDED.
--- NOTE | 2018-05-28 18:30 | NUR ---
RN MS NOTES OFFERED PT TO PROVIDE TREATMENT AND DRESSING CHANGE FOR THE WOUNDS IN BOTH HIS LEGS, PT REFUSED, STATED THAT HE NEEDS HIS PAIN MEDS FIRST.
[2018-05-28 20:00] VITALS: BP 114/82
--- NOTE | 2018-05-28 23:30 | NUR ---
RN NOTE BLADDER SCAN DONE, 0 ML RESIDUAL OF URINE NOTED
[2018-05-29] MEDS: HYDROMORPHONE INJ 2 MG/ML DISP.SYRIN IV PRN ×5 (00:15→19:32)
[2018-05-29 04:00] VITALS: BP_SYST 111; BP_SYST 130; BP_DIAS 76; BP_DIAS 83
--- NOTE | 2018-05-29 06:00 | NUR ---
RN NOTE BLADDER SCAN DONE, 0 ML OF RESIDUAL URINE NOTED
[2018-05-29] MEDS: BLOOD SUGAR DIAGNOSTIC 1 EACH STRIP IN SCH ×3 (06:27→18:00)
--- NOTE | 2018-05-29 07:25 | NUR ---
MS RN NOTES PATIENT IN BED ALERT ORIENTED X 3. NO ACUTE DISTRESS NOTED. BREATHING UNLABORED. NO SOB NOTED. IV ACCESS PATENT AND INTACT, NO REDNESS OR SWELLING NOTED. CALL LIGHT WITHIN REACH. WILL CONTINUE TO MONITOR ACCORDINGLY.
[2018-05-29 08:00] VITALS: BP_SYST 102; BP_SYST 99; BP_DIAS 61; BP_DIAS 62
[2018-05-29] MEDS: LACTOBACILLUS RHAMNOSUS GG 1 EACH CAP.SPRINK PO SCH ×2 (08:44→16:46)
[2018-05-29] MEDS: FERROUS SULFATE (325 MG) 325 MG/TAB TABLET PO SCH ×2 (08:44→16:46)
[2018-05-29] MEDS: PROSOURCE / PROSTAT (PYXIS) 30 ML UDC GT SCH ×2 (08:44→16:50)
[2018-05-29] MEDS: NICOTINE PATCH (14MG) 14 MG PATCH.TD24 TD SCH (08:44)
[2018-05-29] MEDS: PANTOPRAZOLE 40 MG VIAL IV SCH (08:44)
[2018-05-29] MEDS: DAKINS QUARTER STRENGTH (0.125%) 480 ML BOTTLE TOP SCH (08:45)
[2018-05-29] MEDS: Z GUARD REMEDY 4 OZ OINT TP SCH ×2 (08:46→21:21)
[2018-05-29 16:00] VITALS: BP_SYST 102; BP_SYST 118; BP_DIAS 65; BP_DIAS 69
[2018-05-29] MEDS ORDERED: ENSURE ENLIVE 237 ML LIQUID (VANILLA) PO SCH (17:00)
--- NOTE | 2018-05-29 19:00 | NUR ---
MS RN NOTES PATIENT IN BED ALERT ORIENTED X 3. NO ACUTE DISTRESS NOTED. BREATHING UNLABORED. NO SOB NOTED. IV ACCESS PATENT AND INTACT, NO REDNESS OR SWELLING NOTED. WOUND DRESSING CLEAN , DRY AND INTACT. NEEDS ATTENDED AND ANTICIPATED. KEPT CLEAN, DRY AND COMFORTABLE. CALL LIGHT WITHIN REACH. ENDORSED TO NIGHT NURSE FOR CONTINUITY OF CARE.
[2018-05-29 20:00] VITALS: BP 101/67
--- NOTE | 2018-05-29 23:23 | NUR ---
RN NOTE PATIENT DISCHARGED TO [facility], FOLDER WITH DC DOCUMENTS WERE PREPARED BY AM SHIFT AND REVIEWED BY CHARGE NURSE SEBASTIAN, PATIENT IS ALERT/ORIENTED X 3, REFUSED TO TAKE DC SKIN PICTURES, PATIENT STATED "THERE IS NO NEED TO TAKE PICTURES BECAUSE PICTURES WERE TAKEN YESTERDAY", EXPLAINED PATIENT ALL RISKS AND BENEFITS STILL REFUSED, CHARGE NURSE SEBASTIAN IS AWARE, WOUND CARE PROVIDED ORDERED PER MD, BELONGINGS LIST SIGNED BY THE PATIENT AND PLACED IN THE CHART, MID LINE IN THE LEFT UPPER WAS DISCONTINUED WITH A STERILE TECHNIQUE WITH 2 RNS,TIP IS INTACT, NO BLEEDING NOTED, NO PAIN OR DISCOMFORT NOTED, ON ROOM AIR, BREATHING IS EVEN AND UNLABORED,ALL SAFETY MEASURES TAKEN, VITAL SIGNS STABLE
[2018-05-29] MEDS ORDERED: PANT40TA2 PO (23:46)
[2018-05-29] MEDS ORDERED: FERR325T28 PO (23:46)
[2018-05-29] MEDS ORDERED: LACT1CAP72 PO (23:46)
== END 2018-05-29 23:45 | disposition home or self-care (01) | DRG 720 ==
LOC: ER 01:08 → ICU 02:13 → TELE-TD 05-19 12:50 → MEDSG1 05-20 09:04
PROVIDERS: ADMIT Registered Nurse; ATTEND Internal Medicine
PROC: B548ZZA Ultrasonography of Superior Vena Cava, Guidance (ICD-10-PCS; 2018-05-04)
PROC: 30233R1 Transfusion of Nonautologous Platelets into Peripheral Vein, Percutaneous Approach (ICD-10-PCS; 2018-05-04)
PROC: 02HV33Z Insertion of Infusion Device into Superior Vena Cava, Percutaneous Approach (ICD-10-PCS; 2018-05-04)
PROC: 30233N1 Transfusion of Nonautologous Red Blood Cells into Peripheral Vein, Percutaneous Approach (ICD-10-PCS; 2018-05-06)
PROC: 5A09457 Assistance with Respiratory Ventilation, 24-96 Consecutive Hours, Continuous Positive Airway Pressure (ICD-10-PCS; 2018-05-06)
PROC: 5A1955Z Respiratory Ventilation, Greater than 96 Consecutive Hours (ICD-10-PCS; principal; 2018-05-08)
PROC: 0BH18EZ Insertion of Endotracheal Airway into Trachea, Via Natural or Artificial Opening Endoscopic (ICD-10-PCS; principal; 2018-05-08)
PROC: 30233K1 Transfusion of Nonautologous Frozen Plasma into Peripheral Vein, Percutaneous Approach (ICD-10-PCS; principal; 2018-05-08)
PROC: 06HM33Z Insertion of Infusion Device into Right Femoral Vein, Percutaneous Approach (ICD-10-PCS; 2018-05-11)
PROC: B54BZZA Ultrasonography of Right Lower Extremity Veins, Guidance (ICD-10-PCS; 2018-05-11)
PROC: 5A1D70Z Performance of Urinary Filtration, Intermittent, Less than 6 Hours Per Day (ICD-10-PCS; 2018-05-11)
PROC: 0JHL3XZ Insertion of Tunneled Vascular Access Device into Right Upper Leg Subcutaneous Tissue and Fascia, Percutaneous Approach (ICD-10-PCS; 2018-05-11)
PROC: 5A1D70Z Performance of Urinary Filtration, Intermittent, Less than 6 Hours Per Day (ICD-10-PCS; 2018-05-12)
PROC: 5A1D70Z Performance of Urinary Filtration, Intermittent, Less than 6 Hours Per Day (ICD-10-PCS; 2018-05-13)
PROC: 5A1D70Z Performance of Urinary Filtration, Intermittent, Less than 6 Hours Per Day (ICD-10-PCS; 2018-05-15)
PROC: 0W9B30Z Drainage of Left Pleural Cavity with Drainage Device, Percutaneous Approach (ICD-10-PCS; 2018-05-15)
PROC: 05H533Z Insertion of Infusion Device into Right Subclavian Vein, Percutaneous Approach (ICD-10-PCS; 2018-05-17)
PROC: B546ZZA Ultrasonography of Right Subclavian Vein, Guidance (ICD-10-PCS; 2018-05-17)
PROC: 0DB78ZX Excision of Stomach, Pylorus, Via Natural or Artificial Opening Endoscopic, Diagnostic (ICD-10-PCS; 2018-05-22)
PROC: 0DBQ8ZX Excision of Anus, Via Natural or Artificial Opening Endoscopic, Diagnostic (ICD-10-PCS; 2018-05-26)
DX: A40.9 Streptococcal sepsis, unspecified (principal); J96.01 Acute respiratory failure with hypoxia; N17.0 Acute kidney failure with tubular necrosis; R65.21 Severe sepsis with septic shock; G93.41 Metabolic encephalopathy; E43 Unspecified severe protein-calorie malnutrition; J18.9 Pneumonia, unspecified organism; K29.81 Duodenitis with bleeding; E87.2 Acidosis; E86.0 Dehydration; E83.51 Hypocalcemia; E87.6 Hypokalemia; D64.9 Anemia, unspecified; I48.91 Unspecified atrial fibrillation; L03.116 Cellulitis of left lower limb; L03.115 Cellulitis of right lower limb; Z59.0 Homelessness; F10.10 Alcohol abuse, uncomplicated; Y90.9 Presence of alcohol in blood, level not specified; F17.200 Nicotine dependence, unspecified, uncomplicated; M86.9 Osteomyelitis, unspecified; D68.59 Other primary thrombophilia; D69.59 Other secondary thrombocytopenia; E16.2 Hypoglycemia, unspecified; E83.42 Hypomagnesemia; E87.0 Hyperosmolality and hypernatremia; I50.9 Heart failure, unspecified; D50.9 Iron deficiency anemia, unspecified; F11.10 Opioid abuse, uncomplicated; I89.0 Lymphedema, not elsewhere classified; K52.9 Noninfective gastroenteritis and colitis, unspecified; K72.90 Hepatic failure, unspecified without coma; J93.9 Pneumothorax, unspecified; B37.49 Other urogenital candidiasis
CPT/HCPCS: 31720; 36415; 36569; 36600; 71045-TC; 73590-TC; 73630-TC; 76700-TC; 78582; 80048-TC; 80053-TC; 80061-TC; 80076-TC; 80202-TC; 81000-TC; 82272-TC; 82378; 82436-TC; 82550-TC; 82553-TC; 82570-TC; 82595; 82728-TC; 82803-TC; 82962-TC; 83010; 83540-TC; 83605-TC; 83735-TC; 83880; 83935-TC; 83970; 84100-TC; 84132-TC; 84133-TC; 84155; 84155-TC; 84165; 84300-TC; 84443-TC; 84484-TC; 85025-TC; 85385-TC; 85610-TC; 85652-TC; 85730-TC; 86580-TC; 86704; 86705; 86706; 86803; 86850-TC; 86921-TC; 87040-TC; 87070-TC; 87081-TC; 87086-TC; 87186-TC; 87340; 87806; 88305-TC; 88313-TC; 88342; 90935-TC; 92611-TC; 93307-TC; 93971-TC; 94002-TC; 94003-TC; 94760-TC; 94799-TC; 97110-TC; 97112-TC; 97116-TC; 97530-TC; A4216; A4349; A6253; A6402; A6403; A9540; A9567; C1750; C1751; C9113; G0378; J0282; J0330; J0692; J0744; J1160; J1170; J1815; J1956; J2060; J2185; J2270; J2405; J2543; J2704; J3370; J3475; J3480; J3490; J7030; J7040; J7042; J7050; J7060; J7070; P9016-BL; P9017-BL; P9034-BL; P9047; Q9968

== ENCOUNTER 2018-06-09 12:38 | Emergency (ER) | payer MEDICAID ==
[~2018-06-09] VITALS: Ht 182.9 cm; Wt 72.6 kg
[~2018-06-09 12:38] MED LIST: FERR325T28 PO; LACT1CAP72 PO; PANT40TA2 PO
--- NOTE | 2018-06-09 12:45 | NUR ---
PT BIB PRIVATE EMT [facility] FOR EVAL AND TREATMENT OF WOUND IN R AND L LEG, PT IS AAOX4, NOT IN RESPIRATORY DISTRESS, V/S STABLE, KEPT RESTED AND COMFORTABLE, SEEN AND EXAMINED BY DEGRASSE TRACER LATHE SET UP OPERATOR.
[2018-06-09] MEDS ORDERED: IBUP-1953 PO (13:24)
[2018-06-09] MEDS ORDERED: AMIN30LI2 PO (13:24)
[2018-06-09] MEDS ORDERED: MULT-447 PO (13:24)
[2018-06-09] MEDS ORDERED: ARGI1POW13 PO (13:24)
[2018-06-09] MEDS ORDERED: ASCO500T9 PO (13:24)
[2018-06-09] MEDS ORDERED: ZINC220C8 PO (13:24)
[2018-06-09] MEDS ORDERED: HYDR-4384 PO (13:24)
[2018-06-09] MEDS ORDERED: GABA-534 PO (13:24)
[2018-06-09] MEDS ORDERED: SILVER SULFADIAZINE CREAM 25 GM TUBE TP ONE (15:00)
[2018-06-09] MEDS ORDERED: SILVER SULFADIAZINE CREAM 25 GM TUBE ONE (15:02)
--- NOTE | 2018-06-09 15:05 | NUR ---
CALL BACK FROM [facility], , WANTS A CALL FROM HIM WHEN HE IS IN HIS ROOM
[2018-06-09 15:14] LABS: BASOPHILS # (AUTO) 0.1 /CMM (0.0-0.2); BASOPHILS % (AUTO) 0.8 % (0.0-2.0); EOSINOPHILS % (AUTO) 3.2 % (0.0-6.0); HEMATOCRIT 25 % (39-51); HEMOGLOBIN 8.2 g/dL (13.5-17.5); LYMPHOCYTES # (AUTO) 1.7 /CMM (0.8-4.8); LYMPHOCYTES % (AUTO) 20.8 % (20.0-44.0); MEAN CORPUSCULAR HGB CONC 33 g/dl (31.0-36.0); MEAN CORPUSCULAR VOLUME 84 fL (80-96); MONOCYTES # (AUTO) 0.8 /CMM (0.1-1.30); MONOCYTES % (AUTO) 9.7 % (2.0-12.0); NEUTROPHILS # (AUTO) 5.4 /CMM (1.8-8.9); NEUTROPHILS % (AUTO) 65.5 % (43.0-81.0); PLATELET COUNT (AUTO) 356 /CMM (150-450); RED BLOOD CELL COUNT(AUTO) 2.97 MIL/uL (4.5-6.0); WHITE BLOOD COUNT (AUTO) 8.2 K/uL (4.3-11.0)
[2018-06-09 15:19] LABS: CALCIUM, SERUM 8.2 mg/dL (8.5-10.1); CREATININE 0.8 mg/dL (0.6-1.3); POTASSIUM 3.9 mmol/L (3.5-5.1)
--- NOTE | 2018-06-09 15:23 | NUR ---
URINE SPECIMEN COLLECTED AND SENT TO LAB.
[2018-06-09 15:30] LABS: APPEARANCE,URINE Clear (CLEAR); BILIRUBIN,URINE Negative (NEGATIVE); BLOOD, URINE Negative Ery/uL (NEGATIVE); COLOR,URINE Yellow (YELLOW); KETONES,URINE Negative (NEGATIVE); LEUKOCYTE ESTERASE ,URINE Negative (NEGATIVE); NITRITE, URINE Negative (NEGATIVE); PROTEIN,URINE Negative (NEGATIVE); UGLUCOSE Negative (NEGATIVE); UROBILINOGEN,URINE 0.2 EU/dL (0.2)
[2018-06-09] MEDS: HYDROCODONE/APAP 5/325MG 1 EACH TABLET PO PRN ×2 (16:00→20:09)
[2018-06-09] MEDS ORDERED: HYDROCODONE/APAP 5/325MG 1 EACH TABLET ONE ×2 (16:10→20:05)
--- NOTE | 2018-06-09 16:20 | NUR ---
WAITING FOR THE ACCEPTING FACILITY UNTIL 7PM.
--- NOTE | 2018-06-09 16:20 | NUR ---
REPORT GIVEN TO ANNE MADRIGAL FOR SRINIVASA.
--- NOTE | 2018-06-09 17:50 | NUR ---
SATISH WEBSTER# [id number] ETA 2000 PER JOLYNN
--- NOTE | 2018-06-09 20:30 | NUR ---
Patient is resting comfortably in bed with eyes closed. Easily aroused. VSS. NAD NOTED.
--- NOTE | 2018-06-09 20:55 | NUR ---
REPORT GIVEN TO EMT FOR TRANSFER TO [facility]. PT AAXO4. NAD NOTED. VSS.
[2018-06-09 21:13] VITALS: BP 110/70
== END 2018-06-09 20:55 | disposition home or self-care (01) ==
LOC: ER 12:40 → MED 15:21 → UNDOADMIN 15:21
DX: S81.802A Unspecified open wound, left lower leg, initial encounter (principal); S81.801A Unspecified open wound, right lower leg, initial encounter; D64.9 Anemia, unspecified; Z79.899 Other long term (current) drug therapy; X58.XXXA Exposure to other specified factors, initial encounter; Y93.89 Activity, other specified; Y92.89 Other specified places as the place of occurrence of the external cause; Y99.8 Other external cause status
CPT/HCPCS: 36415; 80048; 81001; 85025; 87081; 99283; A4606; Z7610; 81000-TC; G0378

== ENCOUNTER 2018-09-23 09:32 | Inpatient (IN) | payer MEDICAID, OTHER ==
[~2018-09-23] VITALS: Ht 182.9 cm; Wt 87.1 kg
[~2018-09-23 09:32] MED LIST changes: +AMIN30LI2 PO; +ARGI1POW13 PO; +ASCO500T9 PO; -FERR325T28 PO; +GABA-534 PO; +HYDR-4384 PO; +IBUP-1953 PO; -LACT1CAP72 PO; +MULT-447 PO; -PANT40TA2 PO; +ZINC220C8 PO
--- NOTE | 2018-09-23 09:35 | NUR ---
[facility] UN[address] FROM [facility] ,WORSENING L AND R INFECTION. ALSO C/O GENERALIZED BODY PAIN. TO ER BED 10, HOOKED TO MONITOR, CHANGED TO GOWN, PROVIDED W WARM BLANKET, DR SKAGGS AT BEDSIDE
[2018-09-23] MEDS ORDERED: CLIN300C11 PO (09:51)
[2018-09-23] MEDS ORDERED: HYDR-4354 PO (09:51)
[2018-09-23] MEDS ORDERED: FURO-144 PO (09:51)
[2018-09-23] MEDS ORDERED: POTA10CA43 PO (09:51)
[2018-09-23] MEDS ORDERED: PIPERACILLIN /TAZOBACTAM 3.375 G in IV D5W 50 ML IV ONE (10:00)
[2018-09-23] MEDS ORDERED: IV NS 0.9% 1,000 ML BAG IV ONE (10:00)
[2018-09-23] MEDS ORDERED: ACETAMINOPHEN 325 MG TABLET PO ONE (10:00)
[2018-09-23] MEDS ORDERED: HYDROMORPHONE 1 MG/1 ML DISP.SYRIN IV ONE (10:00)
[2018-09-23] MEDS ORDERED: HYDROMORPHONE 1 MG/1 ML DISP.SYRIN ONE (10:10)
[2018-09-23] MEDS ORDERED: ACETAMINOPHEN 325 MG TABLET ONE (10:18)
--- NOTE | 2018-09-23 10:45 | NUR ---
UNSUCCESSFUL WITH STARTING IV PERIPHERAL LINE AND DRAWING BLOOD FOR LAB TESTS. MADE AWARE.
[2018-09-23] MEDS ORDERED: HYDROMORPHONE 1 MG/1 ML DISP.SYRIN IM ONE (11:00)
--- NOTE | 2018-09-23 11:05 | NUR ---
EPIC CALLED SABA ALBERTS NP PAGED FOR REPORT
--- NOTE | 2018-09-23 11:45 | NUR ---
REPORT GIVEN TO SOCRATES RODRÍGUEZ OF [facility] UNIT
--- NOTE | 2018-09-23 12:10 | NUR ---
SHAYLA TURNER RN AT BEDSIDE FOR MIDLINE INSERTION
--- NOTE | 2018-09-23 12:50 | NUR ---
BLOOD DRAWN AND SENT TO LAB.
[2018-09-23 12:55] LABS: BASOPHILS % (AUTO) 0.4 % (0.0-2.0); EOSINOPHILS % (AUTO) 0.3 % (0.0-6.0); HEMATOCRIT 34 % (39-51); LYMPHOCYTES # (AUTO) 0.6 /CMM (0.8-4.8); LYMPHOCYTES % (AUTO) 5.8 % (20.0-44.0); MEAN CORPUSCULAR HGB CONC 35 g/dl (31.0-36.0); MEAN CORPUSCULAR VOLUME 85 fL (80-96); MONOCYTES % (AUTO) 18.4 % (2.0-12.0); NEUTROPHILS # (AUTO) 8.2 /CMM (1.8-8.9); NEUTROPHILS % (AUTO) 75.1 % (43.0-81.0); PLATELET COUNT (AUTO) 65 /CMM (150-450); RED BLOOD CELL COUNT(AUTO) 4.05 MIL/uL (4.5-6.0); WHITE BLOOD COUNT (AUTO) 10.9 K/uL (4.3-11.0)
--- NOTE | 2018-09-23 12:55 | NUR ---
MIDLINE R BASILIC VEIN 18G ESTABLISHED BY SEBASTIAN RODRÍGUEZ
--- NOTE | 2018-09-23 13:08 | NUR ---
TRANSFERRED BY EMT VIA GURNEY TO ROOM 201, MS UNIT.
[2018-09-23 13:18] LABS: CALCIUM, SERUM 8.3 mg/dL (8.5-10.1); CREATININE 1.1 mg/dL (0.6-1.3); POTASSIUM 3.9 mmol/L (3.5-5.1)
[2018-09-23 13:20] VITALS: BP 101/66
--- NOTE | 2018-09-23 13:20 | NUR ---
RECEIVED PATIENT FROM ER VIA GURNEY. PATIENT A/OX3, ABLE TO MAKE NEEDS KNOWN, NOT IN ANY FORM OF DISTRESS, NO SOB. TOLERATING ROOM AIR. CAME IN FOR BILATERAL LOWER EXTREMITY CELLULITIS AND GENERALIZED BODY PAIN. PAIN MANAGEMENT GIVEN IN ER. "FEELS BETTER NOW" PER PATIENT. RIGHT PICC LINE INTACT AND PATENT, IVF INFUSING. ORIENTED PATIENT TO ROOM. REFUSED SKIN ASSESSMENT AND PHOTOS AT THE MOMENT PATIENT STATED ITS PAINFUL TO MOVE, "'LET'S DO IT LATER WHEN IT DOESNT HURT ANYMORE". ALL BELONGINGS CHECKED AND NOTED IT ON THE CHECKLIST. ALSO REFUSED TO WEAR HOSPITAL GOWN IT IS PAINFUL TO MOVE AROUND. PATIENT ON REGULAR CLOTHES. KEPT PATIENT SAFE AND COMFORTABLE. BED IN LOW/LOCKED POSITION, SIDERAILS UPX2, CALL LIGHT IN REACH. WILL CONTINUE TO MONITOR ACCORDINGLY.
[2018-09-23 13:21] LABS: EOSINOPHILS % (MANUAL) 1 % (0-4); LYMPHOCYTES % (MANUAL) 5 % (16-48); MONOCYTES % (MANUAL) 11 % (0-11.0); NEUTROPHILS % (MANUAL) 83 (42-76)
[2018-09-23 13:23] LABS: ALBUMIN 2.4 g/dL (3.4-5.0); BILIRUBIN,DIRECT 0.5 mg/dL (0.0-0.2); BILIRUBIN,TOTAL 0.9 mg/dL (0.2-1.0); TOTAL PROTEIN, SERUM 6.9 g/dL (6.4-8.2)
[2018-09-23 13:30] VITALS: BP 101/66
--- NOTE | 2018-09-23 13:30 | NUR ---
RN NOTES SABA ALBERTS NP AT BEDSIDE ASSESSING THE PATIENT.
[2018-09-23] MEDS ORDERED: Z GUARD REMEDY 2 OZ OINT TP PRN (15:00)
[2018-09-23] MEDS ORDERED: MAGNESIUM HYDROXIDE 30 ML UDC PO PRN (15:00)
[2018-09-23] MEDS ORDERED: ONDANSETRON HCL/PF 4 MG/2 ML VIAL IVP PRN (15:00)
[2018-09-23] MEDS: MORPHINE SULFATE INJ 2 MG/ML DISP.SYRIN IV PRN ×2 (15:24→20:12)
[2018-09-23] MEDS ORDERED: FEE PK DOSING 1 MIN EA MC ONE (15:41)
[2018-09-23 16:00] VITALS: BP 106/66
--- NOTE | 2018-09-23 16:30 | NUR ---
RN NOTES WOUND CARE RENDERED, CHANGED DRESSING.
[2018-09-23] MEDS: HYDROCODONE/APAP 5/325MG 1 EACH TABLET PO PRN ×2 (16:35→21:22)
[2018-09-23] MEDS: VANCOMYCIN 1 GM in IV D5W 250 ML IV SCH ×2 (16:37→23:21)
[2018-09-23] MEDS: PIPERACILLIN /TAZOBACTAM 3.375 G in IV D5W 50 ML IV SCH (17:49)
--- NOTE | 2018-09-23 18:00 | NUR ---
RN NOTES STILL REFUSED SKIN ASSESSMENT AND REFUSED TO CHANGE TO HOSPITAL GOWN PATIENT STATED THAT IT'S STILL PAINFUL TO MOVE EVEN WITH PAIN MEDICATIONS. REQUESTED TO DO IT LATER BEFORE HE SLEEPS.
[2018-09-23] MEDS ORDERED: IV NS 0.9% 1,000 ML BAG IV PRN (18:30)
--- NOTE | 2018-09-23 19:22 | NUR ---
RN CLOSING NOTES PATIENT IN STABLE CONDITION, ALL NEEDS ATTENDED AND PROVIDED. ASSISTED WITH ADLS. ALL DUE MEDS GIVEN ORDERED. KEPT PATIENT SAFE AND COMFORTABLE. BED IN LOW/LOCKED POSITION, SIDERAILS UPX2, CALL [facility] IN [place]. ENDORSED TO NIGHT RN FOR SRINIVASA.
--- NOTE | 2018-09-23 19:30 | NUR ---
RECEIVED PATIENT IN BED AWAKE. AO X 3, ABLE TO MAKE NEEDS KNOWN. NO ACUTE DISTRESS NOTED. MONITORED FOR PAIN. IV SITE PATENT, INTACT; FLUSHED. BLE WOUND DRESSINGS INTACT. SAFETY REMINDERS GIVEN. ON LOW BED WITH BILATERAL UPPER SIDE RAILS UP. WILL CONTINUE TO MONITOR.
[2018-09-23 20:00] VITALS: BP 119/68
[2018-09-23] MEDS: IV NS 0.9% 1,000 ML IV PRN (20:51)
--- NOTE | 2018-09-23 22:00 | NUR ---
RELAYED MORPHINE'S EFFECT ON PATIENT'S PAIN TO [employer]ISH PHOTOGRAPHER. NO NEW ORDERS GIVEN. WILL CONTINUE TO MONITOR.
[2018-09-23] MEDS: ZOLPIDEM TARTRATE 5 MG TABLET PO PRN (22:45)
[2018-09-24] MEDS: MORPHINE SULFATE INJ 2 MG/ML DISP.SYRIN IV PRN ×6 (00:13→20:58)
[2018-09-24] MEDS: PIPERACILLIN /TAZOBACTAM 3.375 G in IV D5W 50 ML IV SCH ×5 (00:43→23:06)
[2018-09-24] MEDS: HYDROCODONE/APAP 5/325MG 1 EACH TABLET PO PRN ×6 (01:38→23:58)
--- NOTE | 2018-09-24 06:00 | NUR ---
PATIENT ASLEEP, EASILY AROUSABLE. RESPIRATIONS EVEN. MONITORED FOR PAIN. AFEBRILE. DUE MEDS GIVEN WITH NO ASE NOTED. NEEDS ATTENDED. KEPT CLEAN, DRY, AND COMFORTABLE. SAFETY PRECAUTIONS AND COMFORT MEASURES IN PLACE. WILL GIVE REPORT TO DAY SHIFT FOR CONTINUITY OF CARE.
--- NOTE | 2018-09-24 07:00 | NUR ---
RN OPENING NOTES RECEIVED PATIENT IN BED AWAKE. AO X 3, ABLE TO MAKE NEEDS KNOWN. NO ACUTE DISTRESS NOTED. MONITORED FOR PAIN. IV SITE PATENT AND INTACT; FLUSHED. BLE WOUND DRESSINGS C/D/I. SAFETY MEASURES INITIATED. BED IN LOW/LOCKED POSITION, SIDERAILS UPX2, CALL [facility] [place]. WILL MONITOR ACCORDINGLY.
[2018-09-24] MEDS: IV NS 0.9% 1,000 ML IV PRN ×2 (07:08→21:16)
[2018-09-24 07:21] LABS: HEMATOCRIT 32 % (39-51); HEMOGLOBIN 10.8 g/dL (13.5-17.5); MEAN CORPUSCULAR HGB CONC 34 g/dl (31.0-36.0); MEAN CORPUSCULAR VOLUME 85 fL (80-96); PLATELET COUNT (AUTO) 64 /CMM (150-450); RED BLOOD CELL COUNT(AUTO) 3.76 MIL/uL (4.5-6.0); WHITE BLOOD COUNT (AUTO) 8.6 K/uL (4.3-11.0)
[2018-09-24 07:33] LABS: CALCIUM, SERUM 7.9 mg/dL (8.5-10.1); CARBON DIOXIDE 26 mmol/L (21-32); CHLORIDE 98 mmol/L (98-107); CREATININE 0.9 mg/dL (0.6-1.3); GLUCOSE 137 mg/dL (74-106); MAGNESIUM 2.6 mg/dL (1.8-2.4); PHOSPHORUS 3.5 mg/dL (2.5-4.9); POTASSIUM 3.3 mmol/L (3.5-5.1); SODIUM SERUM 133 mmol/L (136-145); UREA NITROGEN, BLOOD 19 mg/dL (7-18)
[2018-09-24 07:34] LABS: CHOLESTEROL 67 mg/dL (<200); HDL CHOLESTEROL < 10 mg/dL (40-60); LDL 23 mg/dL (0-99); TRIGLYCERIDES 148 mg/dL (30-150)
[2018-09-24 07:52] LABS: EOSINOPHILS % (MANUAL) 1 % (0-4); LYMPHOCYTES % (MANUAL) 19 % (16-48); MONOCYTES % (MANUAL) 16 % (0-11.0); NEUTROPHILS % (MANUAL) 64 (42-76)
[2018-09-24 08:00] VITALS: BP 110/66
[2018-09-24] MEDS: VANCOMYCIN 1 GM in IV D5W 250 ML IV SCH ×3 (08:21→23:56)
[2018-09-24] MEDS ORDERED: POTASSIUM CHLORIDE 20 MEQ TAB.PRT.SR PO SCH (10:30)
[2018-09-24] MEDS: ACETAMINOPHEN 325 MG TABLET PO PRN ×2 (10:49→20:58)
[2018-09-24 16:00] VITALS: BP 155/88
[2018-09-24] MEDS: LACTOBACILLUS RHAMNOSUS GG 1 EACH CAP.SPRINK PO SCH (16:15)
--- NOTE | 2018-09-24 19:30 | NUR ---
RN CLOSING NOTES PATIENT IN STABLE CONDITION, ALL NEEDS ATTENDED AND PROVIDED. ASSISTED WITH ADLS. ALL DUE MEDS GIVEN ORDERED. KEPT PATIENT SAFE AND COMFORTABLE. BED IN LOW/LOCKED POSITION, SIDERAILS UPX2, CALL [facility] IN [place]. ENDORSED TO NIGHT RN FOR SRINIVASA.
--- NOTE | 2018-09-24 19:30 | NUR ---
RN NOTES RECEIVED PT. AWAKE ON BED, A/OX4, KEEP ON SAYING "F" WORD , HE ALWAYS ASK HIS PAIN MEDICATION BUT IT'S NOT DUE YET " HE STATED i DON'T CARE ABOUT THE TIME JUST GIVE ME MY PAIN MEDICATION" .. HE ALSO STATED "THOSE "F" WORD DOCTORS, THEY DON'T DO ANYTHING ABOUT ME ".. ASKED THE PATIENT WHAT HE'S TAKING WHEN HE'S NOT IN THE HOSPITAL PATIENT STATED" HE'S JUST TAKING A PO PILL FOR PAIN" . EXPLAINED TO THE PATIENT THAT I'M GOING TO GIVE HIS PAIN MEDICATION WHEN IT'S DUE . CALL LIGHT WITHIN REACH, [id number], CONTINUE TO MONITOR
[2018-09-24 20:00] VITALS: BP_SYST 107; BP_SYST 120; BP_DIAS 58; BP_DIAS 73
--- NOTE | 2018-09-24 20:14 | NUR ---
RN NOTES COMPLAINED OF GENERALIZED PAIN- NORCO 5/325 MG PO GIVEN ORDERED, V/S STABLE
--- NOTE | 2018-09-24 20:30 | NUR ---
RN NOTES ASKED PERMISSION IF I CAN TAKE PICTURE ON HIS LOWER EXTREMITIES.. PT STATED " THEY ALREADY TOOK PICTURE ON MY LOWER EXTREMITIES, I NEED A DOCTOR TO LOOK AT IT". EXPLAINED THE IMPORTANCE BUT PT. WANTS THE DOCTOR TO LOOK AT IT
--- NOTE | 2018-09-24 21:00 | NUR ---
RN NOTEs ASKED PT. IF I CAN CHECKED HIS BACK PT. REFUSED .. HE SAID HE'S IN PAIN AND DOESN'T WANT TO BE MOVED
--- NOTE | 2018-09-24 21:01 | NUR ---
RN NOTES COMPLAINED OF GENERALIZED PAIN- MORPHINE 2 MG IV GIVEN ORDERED, V/S STABLE.. PT HAS A SLIGHT FEVER 99.7.. TYLENOL 650MG PO GIVEN ORDERED
[2018-09-24] MEDS: ZOLPIDEM TARTRATE 5 MG TABLET PO PRN (22:25)
--- NOTE | 2018-09-24 22:27 | NUR ---
RN NOTES PT. ASKED FOR SLEEPING PILL- AMBIEN 5MG PO GIVEN ORDERED, V/S STABLE
--- NOTE | 2018-09-25 00:03 | NUR ---
RN NOTES PT. COMPLAINED OF PAIN AND ASKED FOR NORCO, NORCO 5/325MG PO GIVEN ORDERED, V/S STABLE
[2018-09-25] MEDS: MORPHINE SULFATE INJ 2 MG/ML DISP.SYRIN IV PRN ×6 (00:58→23:39)
--- NOTE | 2018-09-25 01:02 | NUR ---
RN NOTES COMPLAINED OF GENERALIZED PAIN- MORPHINE 2 MG IV GIVEN ORDERED, V/S STABLE
[2018-09-25] MEDS: HYDROCODONE/APAP 5/325MG 1 EACH TABLET PO PRN ×4 (03:59→20:38)
--- NOTE | 2018-09-25 04:02 | NUR ---
RN NOTES COMPLAINED OF GENERALIZED PAIN- NORCO 5/325MG PO GIVEN ORDERED, V/S STABLE
[2018-09-25] MEDS: PIPERACILLIN /TAZOBACTAM 3.375 G in IV D5W 50 ML IV SCH ×3 (05:00→17:47)
[2018-09-25] MEDS: ACETAMINOPHEN 325 MG TABLET PO PRN (05:03)
--- NOTE | 2018-09-25 06:28 | NUR ---
RN NOTES AWAKE, DENIES PAIN AT THIS TIME, NO SOB, MORNING CARE RENDERED, PT. NEEDS ATTENDED
--- NOTE | 2018-09-25 07:10 | NUR ---
MS RN NOTES PATIENT IN BED ALERT ORIENTED X 4. NO ACUTE DISTRESS NOTED. BREATHING UNLABORED. NO SOB NOTED. IV ACCESS PATENT AND INTACT, NO REDNESS OR SWELLING NOTED. SAFETY MEASURES IN PLACE. CALL LIGHT WITHIN REACH. WILL CONTINUE TO MONITOR ACCORDINGLY.
[2018-09-25 08:00] VITALS: BP 96/62
[2018-09-25] MEDS: LACTOBACILLUS RHAMNOSUS GG 1 EACH CAP.SPRINK PO SCH ×2 (08:32→17:47)
[2018-09-25] MEDS: VANCOMYCIN 1 GM in IV D5W 250 ML IV SCH ×3 (08:33→23:40)
[2018-09-25] MEDS: IV NS 0.9% 1,000 ML IV PRN (12:05)
--- NOTE | 2018-09-25 15:15 | NUR ---
MS RN NOTES SEEN AND EVALUATED BY DR CEE WOLFF,WOUND CARE RENDERED, CHANGED DRESSING.
[2018-09-25 16:00] VITALS: BP 113/68
[2018-09-25] MEDS: METHADONE HCL 10 MG TABLET PO SCH (17:48)
--- NOTE | 2018-09-25 19:00 | NUR ---
MS RN NOTES PATIENT IN BED ALERT ORIENTED X 4. NO ACUTE DISTRESS NOTED. BREATHING UNLABORED. NO SOB NOTED. IV ACCESS PATENT AND INTACT, NO REDNESS OR SWELLING NOTED. DUE MEDICATIONS GIVEN, NO ASE NOTED. NEEDS ATTENDED AND ANTICIPATED. REFUSED BLOOD DRAW, AIR MOTOR REPAIRER SABA ALBERTS NOTIFIED. SAFETY MEASURES IN PLACE. CALL LIGHT WITHIN REACH. WILL ENDORSE TO NIGHT NURSE FOR CONTINUITY OF CARE.
[2018-09-25 19:46] VITALS: BP 102/64
[2018-09-25] MEDS ORDERED: CEFTRIAXONE 1 G in IV D5W 50 ML IV SCH (20:00)
--- NOTE | 2018-09-25 20:00 | NUR ---
MS RN NOTES RECEIVED PATIENT AWAKE IN BED. CALL LIGHT WITHIN REACH. PATIENT WITH C/O BLE 10/10 PAIN. PRN MORPHINE 2MG IV GIVEN AND TOLERATED WELL. WILL MONITOR FOR EFFECTIVENESS. PERIPHERAL LINE INTACT AND PATENT. BED IN LOW LOCK SETTING. ENCOURAGED USE OF CALL LIGHT FOR ASSISTANCE AND VERBALIZED GOOD UNDERSTANDING. ALL BELONGINGS KEPT NEAR BEDSIDE. WILL CONTINUE TO MONITOR.
[2018-09-26] MEDS: HYDROCODONE/APAP 5/325MG 1 EACH TABLET PO PRN ×4 (00:45→16:27)
[2018-09-26] MEDS: IV NS 0.9% 1,000 ML IV PRN ×2 (01:50→12:31)
[2018-09-26] MEDS: MORPHINE SULFATE INJ 2 MG/ML DISP.SYRIN IV PRN ×3 (04:30→14:22)
[2018-09-26 06:30] LABS: HEMATOCRIT 29 % (39-51); HEMOGLOBIN 9.7 g/dL (13.5-17.5); MEAN CORPUSCULAR HGB CONC 34 g/dl (31.0-36.0); MEAN CORPUSCULAR VOLUME 85 fL (80-96); PLATELET COUNT (AUTO) 136 /CMM (150-450); RED BLOOD CELL COUNT(AUTO) 3.34 MIL/uL (4.5-6.0); WHITE BLOOD COUNT (AUTO) 7.6 K/uL (4.3-11.0)
[2018-09-26 06:38] LABS: CALCIUM, SERUM 7.9 mg/dL (8.5-10.1); CREATININE 0.7 mg/dL (0.6-1.3); MAGNESIUM 2.2 mg/dL (1.8-2.4); PHOSPHORUS 3.7 mg/dL (2.5-4.9); POTASSIUM 3.4 mmol/L (3.5-5.1)
[2018-09-26 07:01] LABS: LYMPHOCYTES % (MANUAL) 20 % (16-48); MONOCYTES % (MANUAL) 14 % (0-11.0); NEUTROPHILS % (MANUAL) 66 (42-76)
--- NOTE | 2018-09-26 07:05 | NUR ---
MS RN NOTES PATIENT IN LYING BED EYES CLOSED, EASY TO AROUSE, RESPOND TO VERBAL AND TACTILE STIMULI. NO ACUTE DISTRESS NOTED. BREATHING UNLABORED. NO SOB NOTED. IV ACCESS PATENT AND INTACT, NO REDNESS OR SWELLING NOTED. SAFETY MEASURES IN PLACE. CALL LIGHT WITHIN REACH. WILL CONTINUE TO MONITOR ACCORDINGLY.
--- NOTE | 2018-09-26 07:12 | NUR ---
MS RN NOTES PATIENT ASLEEP IN BED WITH NO DISTRESS NOTED. CALL LIGHT WITHIN REACH. NO FURTHER C/O PAIN OR DISCOMFORT. ALL DUE MEDS GIVEN ORDERED WITH NO ASE NOTED. MIDLINE INTACT AND PATENT. BED IN LOW LOCK SETTING. ALL BELONGINGS KEPT NEAR BEDSIDE. WILL ENDORSE TO ONCOMING SHIFT.
--- NOTE | 2018-09-26 07:47 | NUR ---
WOUND CARE CONSULT WOUND CARE RECEIVED WOUND CONSULT FOR RIGHT LEONE. WOUND CARE WILL DEFER CONSULT AND TREATMENT PLAN TO DPM DR WOLFF WHO IS CURRENTLY FOLLOWING THIS PATIENT. PATIENT WITH LATRICIA AT 19, WILL SEE PRN.
[2018-09-26 08:00] VITALS: BP 101/63
[2018-09-26] MEDS: LACTOBACILLUS RHAMNOSUS GG 1 EACH CAP.SPRINK PO SCH ×2 (08:33→16:19)
[2018-09-26] MEDS: VANCOMYCIN 1 GM in IV D5W 250 ML IV SCH ×2 (08:33→16:08)
[2018-09-26] MEDS: METHADONE HCL 10 MG TABLET PO SCH ×2 (09:00→16:24)
[2018-09-26] MEDS ORDERED: DAKINS HALF STRENGTH (0.25%) 480 ML BOTTLE TOP SCH (09:00)
--- NOTE | 2018-09-26 09:00 | NUR ---
MS RN NOTES PATIENT REFUSED METHADONE HEART DOCTOR SABA ALBERTS NOTIFIED.
[2018-09-26] MEDS ORDERED: POTASSIUM CHLORIDE 20 MEQ TAB.PRT.SR PO SCH (11:00)
--- NOTE | 2018-09-26 12:12 | NUR ---
MS RN NOTES PATIENT REFUSED POTASSIUM CHLORIDE 20MEQ EARLIER @1100, WANTS TO TAKE IT 1300.
[2018-09-26] MEDS ORDERED: POTASSIUM CHLORIDE 20 MEQ TAB.PRT.SR PO ONE (12:30)
--- NOTE | 2018-09-26 15:59 | NUR ---
MS RN NOTES PATIENT REFUSED VANCOMYCIN TROUGH BLOOD DRAW SELLING MANAGER SABA ALBERTS NOTIFIED AND PHARMACIST PRICILLA NOTIFIED.
[2018-09-26 16:00] VITALS: BP 109/64
--- NOTE | 2018-09-26 17:00 | NUR ---
MS RN NOTES PATIENT IN BED WATCHING TV, NO ACUTE DISTRESS NOTED. BREATHING UNLABORED. NEEDS ATTENDED AND ANTICIPATED. SAFETY MEASURES IN PLACE. CALL LIGHT WITHIN REACH.
[2018-09-26] MEDS ORDERED: SODI480S2 TOP (17:13)
[2018-09-26] MEDS ORDERED: SULF1TAB48 PO (17:14)
--- NOTE | 2018-09-26 18:40 | NUR ---
MS AUTOMOBILE RADIATOR MECHANIC NOTES PATIENT DISCHARGE TO [facility] REPORT GIVEN TO YUKI [id number] WITH STABLE VITAL SIGNS. NO ACUTE DISTRESS NOTED.NO FACIAL GRIMACING NOTED. DISCHARGE INSTRUCTIONS GIVEN TO THE PATIENT INCLUDING FOLLOW UP WITH PRIMARY DOCTOR , PODIATRY, ANTIBIOTIC AND WOUND CARE, VERBALIZED UNDERSTANDING. PATIENT REFUSED ADL CARE , REFUSED PHOTO TAKEN AND WOUND DRESSING CHANGED, PATIENT REMOVED PRISCILLA WRAP ON THE LEFT LOWER EXTREMITY REFUSED TO PUT IT BACK DESPITE OF EXPLANATION OF EXPLANATION OF RISK AND BENEFITS, PATIENT STRONGLY REFUSED. IV ACCESS REMOVED ON THE RIGHT UPPER ARM, TIP IS INTACT, NO BLEEDING , NO REDNESS, NO SWELLING NOTED. ALL BELONGINGS ACCOUNTED FOR. PICKED UP VIA AMBULANCE IN A GURNEY ACCOMPANIED BY 2 EMT PERSONNEL IN STABLE CONDITION.
== END 2018-09-26 18:40 | DRG 344 ==
LOC: ER 09:33 → MEDSG2 12:09
PROVIDERS: ADMIT Nurse Practitioner Acute Care; ATTEND Nurse Practitioner Acute Care
PROC: 05H533Z Insertion of Infusion Device into Right Subclavian Vein, Percutaneous Approach (ICD-10-PCS; principal; 2018-09-23)
PROC: B546ZZA Ultrasonography of Right Subclavian Vein, Guidance (ICD-10-PCS; principal; 2018-09-23)
DX: M86.9 Osteomyelitis, unspecified (principal); E44.0 Moderate protein-calorie malnutrition; L03.115 Cellulitis of right lower limb; E87.1 Hypo-osmolality and hyponatremia; E88.09 Other disorders of plasma-protein metabolism, not elsewhere classified; I87.313 Chronic venous hypertension (idiopathic) with ulcer of bilateral lower extremity; L03.116 Cellulitis of left lower limb; E87.6 Hypokalemia; Z59.0 Homelessness; E86.0 Dehydration; D63.1 Anemia in chronic kidney disease; Z68.26 Body mass index [BMI] 26.0-26.9, adult; F10.10 Alcohol abuse, uncomplicated; F17.210 Nicotine dependence, cigarettes, uncomplicated; N18.9 Chronic kidney disease, unspecified; L97.929 Non-pressure chronic ulcer of unspecified part of left lower leg with unspecified severity; L97.919 Non-pressure chronic ulcer of unspecified part of right lower leg with unspecified severity; G89.29 Other chronic pain; F19.10 Other psychoactive substance abuse, uncomplicated
CPT/HCPCS: 36415; 36569; 80048-TC; 80061-TC; 80076-TC; 80202-TC; 83605-TC; 83735-TC; 84100-TC; 85025-TC; 85730-TC; 87040-TC; 87081-TC; A4349; A6402; A6403; G0378; J0696; J1170; J2270; J2543; J3370; J7030; J7060